=== PATIENT | female | born 1970 | race Caucasian/White ===

== ENCOUNTER 2017-02-06 18:34 | Inpatient (IN) | payer MEDICARE, OTHER ==
[~2017-02-06] VITALS: Ht 162.6 cm; Wt 65.8 kg
--- NOTE | 2017-02-06 19:03 | PHYS DOC ---
Past History Past Medical History: Bipolar, Cancer (Breast), Dementia, Hypertension, Other Additional Past Medical Histor: MS, mood disorder Additional Past Surgical Histo: Bilateral mastectomy Smoking: Non-smoker Alcohol Use: None Drug Use: None Social History Narrative: Resides at [facility] in [facility] ( Independent living apt) Social History DNR Adult General Chief Complaint Chief Complaint: PSYCH EVALUATION HPI HPI Patient is a 46 year old female who presents with increased aggressive behavior. Patient is quite debilitated from advanced multiple sclerosis hence the need for the [facility] care. She's been having some increased aggressive behavior and was sent in for our psychiatric inpatient services. Her mother is a retired occupational therapist who is aggressively involved in her care. SHe has had no recent illness, no fever or sore throat. No respiratory complaints. No abdominal issues. No vomiting or diarrhea. She is incontinent of urine and stool. Review of Systems Review of Systems Constitutional: Denies fever or chills Eyes: Denies change in visual acuity, redness, or eye pain HENT: Denies nasal congestion or sore throat Respiratory: Denies cough or shortness of breath Cardiovascular: No chest pain GI: Denies abdominal pain, nausea, vomiting, bloody stools or diarrhea ( incontinent) : Denies dysuria or hematuria (incontinent) Musculoskeletal: Denies back pain or joint pain Integument: Denies rash or skin lesions Neurologic: No confusion or altered sensorium. She is however debilitated due to MS. Allergies Allergies Allergies Coded Allergies Type Severity Reaction Last Updated Verified codeine Allergy Unknown VOMITING 01/12/14 No prednisone Allergy Unknown 01/12/14 No trazodone Allergy Unknown 01/12/14 No Physical Exam Physical Exam Constitutional: Well developed, well nourished, no acute distress, non-toxic appearance. Wheelchair bound HENT: Normocephalic, atraumatic, bilateral external ears normal, oropharynx moist, no oral exudates, nose normal. Eyes: PERRLA, EOMI, conjunctiva normal, no discharge. Neck: Normal range of motion, no tenderness, supple, no stridor. Cardiovascular:Heart rate regular rhythm, no murmur Lungs & Thorax: Bilateral breath sounds clear to auscultation Abdomen: Bowel sounds normal, soft, no tenderness, no masses, no pulsatile masses. Skin: Warm, dry, no erythema, no rash. Back: No tenderness, no CVA tenderness. Extremities: No tenderness, no cyanosis, no clubbing, ROM intact, no edema. Neurologic: Alert and oriented X 3, diffuse weakness due to MS EKG EKG EKG interpreted by myself at 1918 PM. Normal sinus rhythm, rate of 96. No acute ST elevation. Nonspecific ST changes. Course & Med Decision Making Course & Med Decision Making Evaluated patient. reviewed records from [place]. Dragon Disclaimer Dragon Disclaimer This chart was dictated in whole or in part using Voice Recognition software in a busy, high-work load, and often noisy Emergency Department environment. It may contain unintended and wholly unrecognized errors or omissions. Departure Departure: Impression: Primary Impression: Behavioral disorder Additional Impression: Multiple sclerosis Disposition: ADMITTED INPATIENT Condition: STABLE Referrals: KERRY MAYORGA MD (PCP) Problem Qualifiers BENOIT CASANOVA MD Feb 06, 2017 19:03
[2017-02-06 19:39] LABS: BASO % 1 % (0-3); EOS # 0.2 x10^3/uL (0.0-0.7); EOS % 5 % (0-3); HEMATOCRIT 36.9 % (36.0-47.0); HEMOGLOBIN 12.3 g/dL (12.0-15.5); LYMPH # 0.4 x10^3/uL (1.0-4.8); LYMPH % 10 % (24-48); MEAN CORPUSCULAR HEMOGLOBIN 32 pg (25-35); MEAN CORPUSCULAR HGB CONC 33 g/dL (31-37); MEAN CORPUSCULAR VOLUME 96 fL (79-100); MONO # 0.4 x10^3/uL (0.0-1.1); MONO % 10 % (0-9); NEUT # 2.9 x10^3uL (1.8-7.7); NEUT % 74 % (31-73); PLATELET COUNT 154 x10^3/uL (140-400); RED BLOOD COUNT 3.84 x10^6/uL (3.50-5.40); RED CELL DISTRIBUTION WIDTH 14.5 % (11.5-14.5); WHITE BLOOD COUNT 3.9 x10^3/uL (4.0-11.0)
[2017-02-06 19:48] LABS: ALBUMIN/GLOBULIN RATIO 1.3 (1.0-1.7); CREATININE 1.4 mg/dL (0.6-1.0); GFR 40.3; MAGNESIUM 2.6 mg/dL (1.8-2.4); POTASSIUM 3.5 mmol/L (3.5-5.1); TOTAL BILIRUBIN 0.5 mg/dL (0.2-1.0); TOTAL PROTEIN 7.2 g/dL (6.4-8.2)
[2017-02-06 20:01] LABS: BILIRUBIN,URINE NEG (NEG); CLARITY,URINE HAZY; COLOR,URINE YELLOW; GLUCOSE,URINE NEG (NEG)
[2017-02-06 20:02] LABS: NITRITE,URINE NEG (NEG); UROBILINOGEN,URINE 0.2 mg/dL (0.2 mg/dL)
[2017-02-06 20:03] LABS: BACTERIA,URINE MOD /HPF (0-FEW); SQUAMOUS EPITHELIAL CELL,UR FEW /LPF
[2017-02-06 20:04] LABS: AMORPHOUS SEDIMENT,UR PRESENT /HPF
[2017-02-06 21:15] VITALS: BP 137/82
[2017-02-06] MEDS ORDERED: NAPR1TAB25 PO (22:03)
[2017-02-06] MEDS ORDERED: BISA10SU2 RC (22:03)
[2017-02-06] MEDS ORDERED: MAGN500T PO (22:03)
[2017-02-06] MEDS ORDERED: FURO-68 PO (22:03)
[2017-02-06] MEDS ORDERED: OLAN5TAB5 PO (22:03)
[2017-02-06] MEDS ORDERED: LOPE2TAB27 PO (22:03)
[2017-02-06] MEDS ORDERED: SODI51CR6 DT (22:03)
[2017-02-06] MEDS ORDERED: TIZA4TAB PO (22:03)
[2017-02-06] MEDS ORDERED: TRAZ50TA15 PO ×2 (22:03)
[2017-02-06] MEDS ORDERED: TRAM50TA PO (22:03)
[2017-02-06] MEDS ORDERED: FESO4TAB PO (22:03)
[2017-02-06] MEDS ORDERED: OLAN5TAB3 PO (22:03)
[2017-02-06] MEDS ORDERED: CHOL10003 PO (22:03)
[2017-02-06] MEDS ORDERED: EUCA50OI2 TP (22:03)
[2017-02-06] MEDS ORDERED: SENN-6 PO (22:03)
[2017-02-06] MEDS ORDERED: LISI-338 PO (22:03)
[2017-02-06] MEDS ORDERED: ARIP5TAB13 PO (22:03)
[2017-02-06] MEDS ORDERED: LAMO25TA PO (22:03)
[2017-02-06] MEDS ORDERED: CRAN1CAP4 PO (22:03)
[2017-02-06] MEDS ORDERED: FERR-26 PO (22:03)
[2017-02-06] MEDS ORDERED: ESCITALOPRAM OX10 MG PO (22:03)
[2017-02-06] MEDS ORDERED: LEVO50TA5 PO (22:03)
[2017-02-06] MEDS ORDERED: BACL20TA PO (22:03)
[2017-02-06] MEDS ORDERED: POLY119P4 PO (22:03)
[2017-02-06] MEDS ORDERED: MENT118G TP (22:03)
[2017-02-06] MEDS ORDERED: MUPI15CR TP (22:03)
[2017-02-06] MEDS ORDERED: CALC1TAB63 PO (22:03)
[2017-02-06] MEDS ORDERED: ACET325T9 PO (22:03)
[2017-02-06] MEDS ORDERED: CETI10TA16 PO (22:03)
[2017-02-06] MEDS ORDERED: LORA0.5T PO (22:03)
[2017-02-06] MEDS ORDERED: POTA20TA4 PO (22:03)
[2017-02-06] MEDS ORDERED: FING0.5C3 PO (22:03)
[2017-02-06] MEDS ORDERED: HYDR-2758 PO (22:03)
[2017-02-06] MEDS ORDERED: traZODone 50 MG TABLET. PO PRN (22:15)
[2017-02-06] MEDS ORDERED: BISACODYL 10 MG SUPP.RECT RC PRN (22:15)
[2017-02-06] MEDS ORDERED: ACETAMINOPHEN 325 MG TABLET PO PRN (22:15)
[2017-02-06] MEDS ORDERED: HYDROcodone/APAP 5/325MG 1 TAB TABLET PO PRN (22:15)
[2017-02-06] MEDS ORDERED: NON FORMULARY ITEM (Menthol (Biofreeze) 1 APP) TP PRN (22:15)
[2017-02-06] MEDS ORDERED: traMADol 50 MG TABLET PO PRN (22:15)
[2017-02-06] MEDS ORDERED: MAGNESIUM HYDROXIDE 2,400 MG/30 ML ORAL.SUSP. PO PRN (22:15)
[2017-02-06] MEDS ORDERED: MAG HYDROX/AL HYDROX/SIMETH 30 ML ORAL.SUSP PO PRN (22:15)
[2017-02-06] MEDS ORDERED: LORazepam 0.5 MG TABLET PO PRN (22:15)
[2017-02-06] MEDS ORDERED: LOPERAMIDE 2 MG CAPSULE PO PRN (22:30)
[2017-02-06] MEDS ORDERED: traZODone 50 MG TABLET. PO SCH (23:00)
[2017-02-06] MEDS: SENNOSIDES/DOCUSATE 8.6/50MG TABLET. PO SCH (23:43)
[2017-02-06] MEDS: BACLOFEN 20 MG TABLET PO SCH (23:43)
[2017-02-06] MEDS: diphenhydrAMINE HCL 25 MG CAPSULE PO SCH (23:44)
[2017-02-06] MEDS: tiZANidine 4 MG TABLET. PO SCH (23:44)
[2017-02-06] MEDS: NAPROXEN 250 MG TABLET PO SCH (23:44)
[2017-02-06] MEDS: lamoTRIgine 25 MG TABLET. PO SCH (23:44)
[2017-02-07] MEDS: ACYCLOVIR 200 MG CAPSULE PO SCH ×5 (08:30→19:08)
[2017-02-07] MEDS: CITALOPRAM 20 MG TABLET. PO SCH (08:30)
[2017-02-07] MEDS: lamoTRIgine 25 MG TABLET. PO SCH ×2 (08:30→19:07)
[2017-02-07] MEDS: SENNOSIDES/DOCUSATE 8.6/50MG TABLET. PO SCH ×2 (08:30→19:07)
[2017-02-07] MEDS: BACLOFEN 20 MG TABLET PO SCH ×4 (08:30→19:07)
[2017-02-07] MEDS: MAGNESIUM OXIDE 400 MG TABLET PO SCH (08:30)
[2017-02-07] MEDS: tiZANidine 4 MG TABLET. PO SCH ×4 (08:30→19:07)
[2017-02-07] MEDS: ARIPiprazole 5 MG TABLET PO SCH (08:31)
[2017-02-07] MEDS: POTASSIUM CHLORIDE 20 MEQ TABLET.ER. PO SCH (08:31)
[2017-02-07] MEDS: FERROUS SULFATE 325 MG TABLET PO SCH ×2 (08:31→17:18)
[2017-02-07] MEDS: CALCIUM CARB/VIT D3 500/200 TABLET PO SCH ×2 (08:31→17:18)
[2017-02-07] MEDS: FUROSEMIDE 40 MG TABLET PO SCH (08:32)
[2017-02-07] MEDS: OLANZapine 5 MG TABLET PO SCH (08:32)
[2017-02-07] MEDS: CHOLECALCIFEROL (VITAMIN D3) 1,000 UNIT TABLET PO SCH (08:32)
[2017-02-07] MEDS: CETIRIZINE HCL 10 MG TABLET PO SCH (08:32)
[2017-02-07] MEDS: OXYBUTYNIN CHLORIDE 5 MG TABLET PO SCH ×2 (08:32→19:07)
[2017-02-07] MEDS: LEVOTHYROXINE 50 MCG TABLET PO SCH (08:32)
[2017-02-07] MEDS: POLYETHYLENE GLYCOL 3350 17 GM PACKET. PO SCH (08:33)
[2017-02-07] MEDS: LISINOPRIL 5 MG TABLET. PO SCH (08:33)
[2017-02-07] MEDS: NICOTINE 21MG PATCH. TD SCH (08:34)
[2017-02-07] MEDS: MUPIROCIN 2% TOPICAL OINTMENT 22GM TUBE. TP SCH ×2 (08:37→19:21)
[2017-02-07] MEDS ORDERED: [UNRECOGNIZED DRUG - OTHER] PO SCH (09:00)
[2017-02-07] MEDS ORDERED: CRANBERRY PO SCH (09:00)
[2017-02-07] MEDS ORDERED: ASCORBIC ACID PO SCH (09:00)
--- NOTE | 2017-02-07 10:40 | EKG ---
[facility] [address] [place] [address] Test Date: 2017-02-06 Test Time: 19:18:15 Pat Name: CELY SARABIA Department: Room: [address] [place] [address] Gender: F Auto [employer]: ZOLTAN : 1970 Requested By: KERRY MAYORGA Order Number: [id number] Reading MD: Mike Ortiz Measurements Intervals [place] Rate: 96 P: 53 NH: 174 QRS: 49 QRSD: 82 T: 51 QT: 346 QTc: 438 Interpretive Statements SINUS RHYTHM Electronically Signed On 02-09-2017 11:11:10 CDT by Mike Ortiz
[2017-02-07 14:20] LABS: THYROID STIM HORMONE (TSH) 2.837 uIU/mL (0.358-3.740)
[2017-02-07 15:46] VITALS: BP 120/79
[2017-02-07 18:10] LABS: T3 TOTAL 102 ng/dL (71-180); THYROXINE 10.9 ug/dL (4.5-12.0)
[2017-02-07] MEDS: NAPROXEN 250 MG TABLET PO SCH (19:07)
[2017-02-07] MEDS: diphenhydrAMINE HCL 25 MG CAPSULE PO SCH (19:21)
[2017-02-07] MEDS: traZODone 100 MG TABLET. PO SCH (19:30)
--- NOTE | 2017-02-07 19:42 | PDOC ---
Exam Mustapha Demential Exam: Mustapha Note: Please also refer to the separate dictated note~for this date of service dictated separately.~Patient seen individually. Discussed the patient with Nursing staff reviewed the chart.~Reviewed interim history and current functioning. Reviewed vital signs,~Labs/ Radiology~and current medications noted below. Continue current treatment with the changes noted in the dictated addendum note Assessment: Vital Signs: Vital Signs Date Time Temp Pulse Resp B/P (MAP) Pulse Ox O2 Delivery O2 Flow Rate FiO2 02/07/17 15:46 97.8 97 22 120/79 (93) 98 02/06/17 21:15 Room Air I&O Intake and Output 02/08/17 07:00 Intake Total 600 ml Balance 600 ml Intake Oral 600 ml # Bowel Movements 3 Current Medications: Meds: Current Medications Al Hydroxide/Mg Hydroxide (Mylanta Plus Xs) 15 ml PRN AFTMEALHC PRN PO DYSPEPSIA; Start 02/06/17 at 22:15 Magnesium Hydroxide (Milk Of Magnesia) 2,400 mg PRN QHS PRN PO CONSTIPATION; Start 02/06/17 at 22:15 Nicotine (Nicoderm Cq 21mg) 1 patch DAILY TD Last administered on 02/07/17 08: 34; Start 02/07/17 at 09:00 Aripiprazole (Abilify) 2.5 mg DAILY PO Last administered on 02/07/17 08:31; Start 02/07/17 at 09:00 Lamotrigine (LaMICtal) 25 mg BID PO Last administered on 02/07/17 19:07; Start 02/06/17 at 23:00 Lorazepam (Ativan) 0.5 mg PRN Q2HR PRN PO ANXIETY / AGITATION; Start 02/06/17 at 22:15 Olanzapine (ZyPREXA ZYDIS) 2.5 mg PRN Q2HR PRN PO ANXIETY / AGITATION; Start at 22:15 Olanzapine (ZyPREXA) 5 mg DAILY PO Last administered on 02/07/17 08:32; Start 02/07/17 at 09:00 Trazodone HCl (Desyrel) 50 mg PRN QHS PRN PO INSOMNIA; Start 02/06/17 at 22:15 ; Stop 02/07/17 at 18:20; Status DC Trazodone HCl (Desyrel) 50 mg QHS PO Last administered on 02/06/17 23:43; Start 02/06/17 at 23:00; Stop 02/07/17 at 18:20; Status DC Citalopram Hydrobromide (CeleXA) 20 mg DAILY PO Last administered on 02/07/17 08:30; Start 02/07/17 at 09:00 Acetaminophen (Tylenol) 650 mg PRN Q4HRS PRN PO PAIN / TEMP; Start 02/06/17 at 22:15 Baclofen (Lioresal) 20 mg QID PO Last administered on 02/07/17 19:07; Start at 23:00 Bisacodyl (Dulcolax Supp) 10 mg PRN DAILY PRN RC CONSTIPATION; Start 02/06/17 at 22:15 Cetirizine HCl (ZyrTEC) 10 mg DAILY PO Last administered on 02/07/17 08:32; Start 02/07/17 at 09:00 Vitamin D (Vitamin D3) 2,000 unit DAILY PO Last administered on 02/07/17 08:32 ; Start 02/07/17 at 09:00 Ferrous Sulfate (Feosol) 325 mg BIDWMEALS PO Last administered on 02/07/17 17: 18; Start 02/07/17 at 08:00 Furosemide (Lasix) 40 mg DAILY PO Last administered on 02/07/17 08:32; Start 02/07/17 at 09:00 Acetaminophen/ Hydrocodone Bitart (Lortab 5/325) 1 tab PRN Q6HRS PRN PO Severe Pain; Start 02/06/17 at 22:15 Levothyroxine Sodium (Synthroid) 50 mcg DAILY07 PO Last administered on 08:32; Start 02/07/17 at 07:00 Lisinopril (Prinivil) 5 mg DAILY PO Last administered on 02/07/17 08:33; Start 02/07/17 at 09:00 Polyethylene Glycol (miraLAX) 17 gm DAILY PO Last administered on 02/07/17 08: 33; Start 02/07/17 at 09:00 Potassium Chloride (Klor-Con) 20 meq DAILY PO Last administered on 02/07/17 08 :31; Start 02/07/17 at 09:00 Senna/Docusate Sodium (Senna Plus) 1 tab BID PO Last administered on 02/07/17 19:07; Start 02/06/17 at 23:00 Sodium Fluoride (Sf 5000 Plus) 1 jaquan QHS DT ; Start 02/07/17 at 21:00 Tizanidine HCl (Zanaflex) 4 mg QID PO Last administered on 02/07/17 19:07; Start 02/06/17 at 23:00 Tramadol HCl (Ultram) 50 mg PRN Q6HRS PRN PO PAIN; Start 02/06/17 at 22:15 Acyclovir (Zovirax) 800 mg 5XDAY PO Last administered on 02/07/17 19:08; Start 02/07/17 at 06:00; Stop 02/09/17 at 22:01 Calcium/Vitamin D (Oscal D 500mg/ 200uts) 1 tab BIDWMEALS PO Last administered on 02/07/17 17:18; Start 02/07/17 at 08:00 Non-Formulary Medication 1 cap DAILY PO ; Start 02/07/17 at 09:00; Status UNV Non-Formulary Medication 1 jaquan QHS TP ; Start 02/07/17 at 21:00; Status UNV Oxybutynin Chloride (Ditropan) 5 mg BID PO Last administered on 02/07/17 19:07 ; Start 02/07/17 at 09:00 Non-Formulary Medication 0.5 mg QODAY PO ; Start 02/08/17 at 09:00 Loperamide HCl (Imodium) 2 mg PRN QID PRN PO DIARRHEA; Start 02/06/17 at 22:30 Magnesium Oxide (Magnesium Oxide) 400 mg DAILY PO Last administered on 08:30; Start 02/07/17 at 09:00 Non-Formulary Medication 1 jaquan PRN QID PRN TP MUSCLE PAIN; Start 02/06/17 at 22 :15; Status UNV Mupirocin (Bactroban) 1 jaquan BID TP Last administered on 02/07/17 19:21; Start 02/07/17 at 09:00 Naproxen (Naprosyn) 250 mg HS PO Last administered on 02/07/17 19:07; Start at 23:00 Diphenhydramine HCl (Benadryl) 25 mg HS PO Last administered on 02/07/17t 19:21 ; Start 02/06/17 at 23:00 Cyanocobalamin (Vitamin B-12) 1,000 mcg WEEKLY IM ; Start 02/08/17 at 09:00 Trazodone HCl (Desyrel) 100 mg QHS PO Last administered on 02/07/17t 19:30; Start 02/07/17 at 21:00 Trazodone HCl (Desyrel) 100 mg PRN QHS PRN PO INSOMNIA; Start 02/07/17 at 18:30 Active Scripts Active Reported Vitamin D3 (Cholecalciferol (Vitamin D3)) 1,000 Unit Tablet 2,000 Unit PO DAILY Vicks Vaporub Ointment (Eucalyptus Oil/Menthol/Camphor) 50 Gm Oint...g. 1 Jaquan TP QHS Trazodone Hcl 50 Mg Tablet 50 Mg PO PRN QHS PRN Trazodone Hcl 50 Mg Tablet 50 Mg PO QHS Toviaz (Fesoterodine Fumarate) 4 Mg Tab.er.24h 4 Mg PO DAILY Tizanidine Hcl (Tizanidine HCl) 4 Mg Tablet 4 Mg PO QID Senna S Tablet (Sennosides/Docusate Sodium) 1 Each Tablet 1 Tab PO BID Klor-Con M20 (Potassium Chloride) 20 Meq Tab.er.prt 20 Meq PO DAILY Zyprexa (Olanzapine) 5 Mg Tablet 5 Mg PO DAILY Zyprexa Zydis (Olanzapine) 5 Mg Tab.rapdis 2.5 Mg PO PRN Q2HR PRN MDD 15mg Miralax (Polyethylene Glycol 3350) 119 Gm Powder 17 Gm PO DAILY Magnesium Oxide 500 Mg Tablet 500 Mg PO DAILY Lorazepam 0.5 Mg Tablet 0.5 Mg PO PRN Q2HR PRN MDD 2mg Loperamide (Loperamide Hcl) 2 Mg Tablet 2 Mg PO PRN QID PRN Lisinopril 5 Mg Tablet 5 Mg PO DAILY Levothyroxine Sodium 50 Mcg Tablet 50 Mcg PO DAILY07 Lasix (Furosemide) 40 Mg Tablet 40 Mg PO DAILY Lamotrigine 25 Mg Tablet 25 Mg PO BID Gilenya (Fingolimod Hcl) 0.5 Mg Capsule 0.5 Mg PO QODAY Ferrous Sulfate 325 Mg Tablet 325 Mg PO BID Escitalopram Oxalate 10 Mg Tablet 10 Mg PO DAILY Bisacodyl 10 Mg Supp.rect 10 Mg RC PRN DAILY PRN Cetirizine Hcl 10 Mg Tablet 10 Mg PO DAILY Calcium 600 + Vit D3 400 Tab (Calcium Carbonate/Vitamin D3) 1 Each Tablet 1 Tab PO BID Biofreeze (Menthol) 118 Ml Gel..ml. 1 Jaquan TP PRN QID PRN Bactroban (Mupirocin Calcium) 15 Gm Cream..g. 1 Gm TP BID Baclofen 20 Mg Tablet 20 Mg PO QID Abilify (Aripiprazole) 5 Mg Tablet 2.5 Mg PO DAILY Aleve Pm Caplet (Naproxen Na-Diphenhydramin HCl) 1 Each Tablet 1 Tab PO QHS Acyclovir 800 Mg Tablet 800 Mg PO 5XDAY 7 Days Tylenol (Acetaminophen) 325 Mg Tablet 650 Mg PO PRN Q4HRS PRN MDD 3000mg Tramadol Hcl (Tramadol HCl) 50 Mg Tablet 50 Mg PO PRN Q6HRS PRN Hydrocodone-Apap 5-325 (Hydrocodone Bit/Acetaminophen) 1 Each Tablet 1 Tab PO PRN Q6HRS PRN Denta 5000 Plus (Sodium Fluoride) 51 Gm Cream..g. 1 Jaquan DT QHS Cranberry Plus Vitamin C Sftgl (Cranberry Conc/Ascorbic Acid) 1 Each Capsule 1 Cap PO DAILY Diagnosis: Problems: (1) Behavioral disorder KERRY MAYORGA MD Feb 07, 2017 19:42
[2017-02-07] MEDS: SODIUM FLUORIDE DT SCH (21:00)
[2017-02-07] MEDS ORDERED: CAMPHOR TP SCH (21:00)
[2017-02-07] MEDS ORDERED: MENTHOL TP SCH (21:00)
[2017-02-07] MEDS ORDERED: EUCALYPTUS OIL TP SCH (21:00)
[2017-02-07] MEDS: [UNRECOGNIZED DRUG - OTHER] DT SCH (21:00)
[2017-02-07] MEDS: traZODone 100 MG TABLET. PO PRN (23:29)
[2017-02-08 03:13] LABS: HEMOGLOBIN A1C 4.7 % (4.8-5.6)
[2017-02-08] MEDS: LEVOTHYROXINE 50 MCG TABLET PO SCH (05:26)
[2017-02-08] MEDS: ACYCLOVIR 200 MG CAPSULE PO SCH ×5 (05:26→19:23)
[2017-02-08 05:49] VITALS: BP 117/76
[2017-02-08] MEDS: ARIPiprazole 5 MG TABLET PO SCH (08:06)
[2017-02-08] MEDS: SENNOSIDES/DOCUSATE 8.6/50MG TABLET. PO SCH ×2 (08:07→19:21)
[2017-02-08] MEDS: CALCIUM CARB/VIT D3 500/200 TABLET PO SCH ×2 (08:07→17:30)
[2017-02-08] MEDS: lamoTRIgine 25 MG TABLET. PO SCH ×2 (08:07→19:21)
[2017-02-08] MEDS: POTASSIUM CHLORIDE 20 MEQ TABLET.ER. PO SCH (08:07)
[2017-02-08] MEDS: CITALOPRAM 20 MG TABLET. PO SCH (08:07)
[2017-02-08] MEDS: LISINOPRIL 5 MG TABLET. PO SCH (08:07)
[2017-02-08] MEDS: BACLOFEN 20 MG TABLET PO SCH ×4 (08:07→19:20)
[2017-02-08] MEDS: MAGNESIUM OXIDE 400 MG TABLET PO SCH (08:07)
[2017-02-08] MEDS: FERROUS SULFATE 325 MG TABLET PO SCH ×2 (08:08→17:30)
[2017-02-08] MEDS: CHOLECALCIFEROL (VITAMIN D3) 1,000 UNIT TABLET PO SCH (08:08)
[2017-02-08] MEDS: NICOTINE 21MG PATCH. TD SCH (08:08)
[2017-02-08] MEDS: FUROSEMIDE 40 MG TABLET PO SCH (08:08)
[2017-02-08] MEDS: POLYETHYLENE GLYCOL 3350 17 GM PACKET. PO SCH (08:08)
[2017-02-08] MEDS: OXYBUTYNIN CHLORIDE 5 MG TABLET PO SCH ×2 (08:08→19:21)
[2017-02-08] MEDS: OLANZapine 5 MG TABLET PO SCH (08:08)
[2017-02-08] MEDS: tiZANidine 4 MG TABLET. PO SCH ×4 (08:08→19:20)
[2017-02-08] MEDS: CETIRIZINE HCL 10 MG TABLET PO SCH (08:08)
[2017-02-08] MEDS: CYANOCOBALAMIN (VITAMIN B-12) 1,000 MCG/ML VIAL IM SCH (08:15)
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
[2017-02-08] MEDS: MUPIROCIN 2% TOPICAL OINTMENT 22GM TUBE. TP SCH (09:47)
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
--- NOTE | 2017-02-08 14:26 | RAD ---
CT scan of the head without contrast 02/08/2017 Clinical History: Confusion and agitation. Technique: Unenhanced, contiguous, 5 mm axial sections were obtained through the head. One or more of the following individualized dose reduction techniques were utilized for this study: 1. Automated exposure control. 2. Adjustment of the mA and/or kV according to patient size. 3. Use of iterative reconstruction technique. Findings: No previous studies are available for comparison. There is generalized parenchymal atrophy. Small scattered areas of decreased attenuation are seen within the periventricular and subcortical white matter of both cerebral hemispheres consistent with areas of small vessel ischemic disease. No acute parenchymal abnormality is seen. No extra-axial fluid collection is noted. No skull fracture is seen. Impression: No acute intracranial abnormality is seen.
[2017-02-08 16:10] VITALS: BP 92/59
[2017-02-08] MEDS: traZODone 100 MG TABLET. PO SCH (19:20)
[2017-02-08] MEDS: diphenhydrAMINE HCL 25 MG CAPSULE PO SCH (19:21)
[2017-02-08] MEDS: NAPROXEN 250 MG TABLET PO SCH (19:21)
[2017-02-08] MEDS: SODIUM FLUORIDE DT SCH (19:23)
[2017-02-08] MEDS: [UNRECOGNIZED DRUG - OTHER] DT SCH (19:23)
--- NOTE | 2017-02-08 19:49 | PDOC ---
Exam Mustapha Demential Exam: Mustapha Note: Please also refer to the separate dictated note~for this date of service dictated separately.~Patient seen individually. Discussed the patient with Nursing staff reviewed the chart.~Reviewed interim history and current functioning. Reviewed vital signs,~Labs/ Radiology~and current medications noted below. Continue current treatment with the changes noted in the dictated addendum note Assessment: Vital Signs: Vital Signs Date Time Temp Pulse Resp B/P (MAP) Pulse Ox O2 Delivery O2 Flow Rate FiO2 02/08/17 16:10 97.0 86 16 92/59 (70) 98 02/06/17 21:15 Room Air I&O Intake and Output 02/09/17 07:00 Intake Total 720 ml Balance 720 ml Intake Oral 720 ml Current Medications: Meds: Current Medications Al Hydroxide/Mg Hydroxide (Mylanta Plus Xs) 15 ml PRN AFTMEALHC PRN PO DYSPEPSIA; Start 02/06/17 at 22:15 Magnesium Hydroxide (Milk Of Magnesia) 2,400 mg PRN QHS PRN PO CONSTIPATION; Start 02/06/17 at 22:15 Nicotine (Nicoderm Cq 21mg) 1 patch DAILY TD Last administered on 02/08/17 08: 08; Start 02/07/17 at 09:00 Aripiprazole (Abilify) 2.5 mg DAILY PO Last administered on 02/08/17 08:06; Start 02/07/17 at 09:00; Stop 02/08/17 at 18:25; Status DC Lamotrigine (LaMICtal) 25 mg BID PO Last administered on 02/08/17 19:21; Start 02/06/17 at 23:00 Lorazepam (Ativan) 0.5 mg PRN Q2HR PRN PO ANXIETY / AGITATION; Start 02/06/17 at 22:15 Olanzapine (ZyPREXA ZYDIS) 2.5 mg PRN Q2HR PRN PO ANXIETY / AGITATION; Start at 22:15 Olanzapine (ZyPREXA) 5 mg DAILY PO Last administered on 02/08/17 08:08; Start 02/07/17 at 09:00 Trazodone HCl (Desyrel) 50 mg PRN QHS PRN PO INSOMNIA; Start 02/06/17 at 22:15 ; Stop 02/07/17 at 18:20; Status DC Trazodone HCl (Desyrel) 50 mg QHS PO Last administered on 02/06/17 23:43; Start 02/06/17 at 23:00; Stop 02/07/17 at 18:20; Status DC Citalopram Hydrobromide (CeleXA) 20 mg DAILY PO Last administered on 02/08/17 08:07; Start 02/07/17 at 09:00 Acetaminophen (Tylenol) 650 mg PRN Q4HRS PRN PO PAIN / TEMP; Start 02/06/17 at 22:15 Baclofen (Lioresal) 20 mg QID PO Last administered on 02/08/17 19:20; Start at 23:00 Bisacodyl (Dulcolax Supp) 10 mg PRN DAILY PRN RC CONSTIPATION; Start 02/06/17 at 22:15 Cetirizine HCl (ZyrTEC) 10 mg DAILY PO Last administered on 02/08/17 08:08; Start 02/07/17 at 09:00 Vitamin D (Vitamin D3) 2,000 unit DAILY PO Last administered on 02/08/17 08:08 ; Start 02/07/17 at 09:00 Ferrous Sulfate (Feosol) 325 mg BIDWMEALS PO Last administered on 02/08/17 17: 30; Start 02/07/17 at 08:00 Furosemide (Lasix) 40 mg DAILY PO Last administered on 02/08/17 08:08; Start 02/07/17 at 09:00 Acetaminophen/ Hydrocodone Bitart (Lortab 5/325) 1 tab PRN Q6HRS PRN PO Severe Pain; Start 02/06/17 at 22:15 Levothyroxine Sodium (Synthroid) 50 mcg DAILY07 PO Last administered on 05:26; Start 02/07/17 at 07:00 Lisinopril (Prinivil) 5 mg DAILY PO Last administered on 02/08/17 08:07; Start 02/07/17 at 09:00 Polyethylene Glycol (miraLAX) 17 gm DAILY PO Last administered on 02/08/17 08: 08; Start 02/07/17 at 09:00 Potassium Chloride (Klor-Con) 20 meq DAILY PO Last administered on 02/08/17 08 :07; Start 02/07/17 at 09:00 Senna/Docusate Sodium (Senna Plus) 1 tab BID PO Last administered on 02/08/17 19:21; Start 02/06/17 at 23:00 Sodium Fluoride (Sf 5000 Plus) 1 jaquan QHS DT Last administered on 02/08/17 19: 23; Start 02/07/17 at 21:00 Tizanidine HCl (Zanaflex) 4 mg QID PO Last administered on 02/08/17 19:20; Start 02/06/17 at 23:00 Tramadol HCl (Ultram) 50 mg PRN Q6HRS PRN PO PAIN; Start 02/06/17 at 22:15 Acyclovir (Zovirax) 800 mg 5XDAY PO Last administered on 02/08/17 19:23; Start 02/07/17 at 06:00; Stop 02/09/17 at 22:01 Calcium/Vitamin D (Oscal D 500mg/ 200uts) 1 tab BIDWMEALS PO Last administered on 02/08/17 17:30; Start 02/07/17 at 08:00 Non-Formulary Medication 1 cap DAILY PO ; Start 02/07/17 at 09:00; Status UNV Non-Formulary Medication 1 jaquan QHS TP ; Start 02/07/17 at 21:00; Status UNV Oxybutynin Chloride (Ditropan) 5 mg BID PO Last administered on 02/08/17 19:21 ; Start 02/07/17 at 09:00 Non-Formulary Medication 0.5 mg QODAY PO Last administered on 02/08/17 08:22; Start 02/08/17 at 09:00 Loperamide HCl (Imodium) 2 mg PRN QID PRN PO DIARRHEA; Start 02/06/17 at 22:30 Magnesium Oxide (Magnesium Oxide) 400 mg DAILY PO Last administered on 08:07; Start 02/07/17 at 09:00 Non-Formulary Medication 1 jaquan PRN QID PRN TP MUSCLE PAIN; Start 02/06/17 at 22 :15; Status UNV Mupirocin (Bactroban) 1 jaquan BID TP Last administered on 02/08/17 09:47; Start 02/07/17 at 09:00; Stop 02/08/17 at 15:33; Status DC Naproxen (Naprosyn) 250 mg HS PO Last administered on 02/08/17 19:21; Start at 23:00 Diphenhydramine HCl (Benadryl) 25 mg HS PO Last administered on 02/08/17 19:21 ; Start 02/06/17 at 23:00 Cyanocobalamin (Vitamin B-12) 1,000 mcg WEEKLY IM Last administered on 08:15; Start 02/08/17 at 09:00 Trazodone HCl (Desyrel) 100 mg QHS PO Last administered on 02/08/17 19:20; Start 02/07/17 at 21:00 Trazodone HCl (Desyrel) 100 mg PRN QHS PRN PO INSOMNIA Last administered on 23:29; Start 02/07/17 at 18:30 Oxcarbazepine (Trileptal) 300 mg TID PO Last administered on 02/08/17 19:31; Start 02/08/17 at 21:00 Active Scripts Active Reported Vitamin D3 (Cholecalciferol (Vitamin D3)) 1,000 Unit Tablet 2,000 Unit PO DAILY Vicks Vaporub Ointment (Eucalyptus Oil/Menthol/Camphor) 50 Gm Oint...g. 1 Jaquan TP QHS Trazodone Hcl 50 Mg Tablet 50 Mg PO PRN QHS PRN Trazodone Hcl 50 Mg Tablet 50 Mg PO QHS Toviaz (Fesoterodine Fumarate) 4 Mg Tab.er.24h 4 Mg PO DAILY Tizanidine Hcl (Tizanidine HCl) 4 Mg Tablet 4 Mg PO QID Senna S Tablet (Sennosides/Docusate Sodium) 1 Each Tablet 1 Tab PO BID Klor-Con M20 (Potassium Chloride) 20 Meq Tab.er.prt 20 Meq PO DAILY Zyprexa (Olanzapine) 5 Mg Tablet 5 Mg PO DAILY Zyprexa Zydis (Olanzapine) 5 Mg Tab.rapdis 2.5 Mg PO PRN Q2HR PRN MDD 15mg Miralax (Polyethylene Glycol 3350) 119 Gm Powder 17 Gm PO DAILY Magnesium Oxide 500 Mg Tablet 500 Mg PO DAILY Lorazepam 0.5 Mg Tablet 0.5 Mg PO PRN Q2HR PRN MDD 2mg Loperamide (Loperamide Hcl) 2 Mg Tablet 2 Mg PO PRN QID PRN Lisinopril 5 Mg Tablet 5 Mg PO DAILY Levothyroxine Sodium 50 Mcg Tablet 50 Mcg PO DAILY07 Lasix (Furosemide) 40 Mg Tablet 40 Mg PO DAILY Lamotrigine 25 Mg Tablet 25 Mg PO BID Gilenya (Fingolimod Hcl) 0.5 Mg Capsule 0.5 Mg PO QODAY Ferrous Sulfate 325 Mg Tablet 325 Mg PO BID Escitalopram Oxalate 10 Mg Tablet 10 Mg PO DAILY Bisacodyl 10 Mg Supp.rect 10 Mg RC PRN DAILY PRN Cetirizine Hcl 10 Mg Tablet 10 Mg PO DAILY Calcium 600 + Vit D3 400 Tab (Calcium Carbonate/Vitamin D3) 1 Each Tablet 1 Tab PO BID Biofreeze (Menthol) 118 Ml Gel..ml. 1 Jaquan TP PRN QID PRN Bactroban (Mupirocin Calcium) 15 Gm Cream..g. 1 Gm TP BID Baclofen 20 Mg Tablet 20 Mg PO QID Abilify (Aripiprazole) 5 Mg Tablet 2.5 Mg PO DAILY Aleve Pm Caplet (Naproxen Na-Diphenhydramin HCl) 1 Each Tablet 1 Tab PO QHS Acyclovir 800 Mg Tablet 800 Mg PO 5XDAY 7 Days Tylenol (Acetaminophen) 325 Mg Tablet 650 Mg PO PRN Q4HRS PRN MDD 3000mg Tramadol Hcl (Tramadol HCl) 50 Mg Tablet 50 Mg PO PRN Q6HRS PRN Hydrocodone-Apap 5-325 (Hydrocodone Bit/Acetaminophen) 1 Each Tablet 1 Tab PO PRN Q6HRS PRN Denta 5000 Plus (Sodium Fluoride) 51 Gm Cream..g. 1 Jaquan DT QHS Cranberry Plus Vitamin C Sftgl (Cranberry Conc/Ascorbic Acid) 1 Each Capsule 1 Cap PO DAILY Diagnosis: Problems: (1) Behavioral disorder (2) Bipolar 1 disorder, mixed, moderate (3) Anxiety disorder (4) Impulse control disorder KERRY MAYORGA MD Feb 08, 2017 19:49
[2017-02-09] MEDS: traZODone 100 MG TABLET. PO PRN (01:03)
[2017-02-09 06:00] VITALS: BP 104/65
[2017-02-09] MEDS: ACYCLOVIR 200 MG CAPSULE PO SCH ×5 (06:13→19:50)
[2017-02-09] MEDS: LEVOTHYROXINE 50 MCG TABLET PO SCH (06:14)
[2017-02-09] MEDS: POLYETHYLENE GLYCOL 3350 17 GM PACKET. PO SCH (08:01)
[2017-02-09] MEDS: FUROSEMIDE 40 MG TABLET PO SCH (08:02)
[2017-02-09] MEDS: OLANZapine 5 MG TABLET PO SCH (08:02)
[2017-02-09] MEDS: CHOLECALCIFEROL (VITAMIN D3) 1,000 UNIT TABLET PO SCH (08:02)
[2017-02-09] MEDS: lamoTRIgine 25 MG TABLET. PO SCH ×2 (08:02→19:40)
[2017-02-09] MEDS: CITALOPRAM 20 MG TABLET. PO SCH (08:02)
[2017-02-09] MEDS: POTASSIUM CHLORIDE 20 MEQ TABLET.ER. PO SCH (08:02)
[2017-02-09] MEDS: SENNOSIDES/DOCUSATE 8.6/50MG TABLET. PO SCH ×2 (08:02→19:40)
[2017-02-09] MEDS: OXYBUTYNIN CHLORIDE 5 MG TABLET PO SCH ×2 (08:02→19:38)
[2017-02-09] MEDS: BACLOFEN 20 MG TABLET PO SCH ×4 (08:02→19:40)
[2017-02-09] MEDS: tiZANidine 4 MG TABLET. PO SCH ×4 (08:02→19:40)
[2017-02-09] MEDS: CALCIUM CARB/VIT D3 500/200 TABLET PO SCH ×2 (08:02→17:01)
[2017-02-09] MEDS: FERROUS SULFATE 325 MG TABLET PO SCH ×2 (08:03→17:00)
[2017-02-09] MEDS: CETIRIZINE HCL 10 MG TABLET PO SCH (08:03)
[2017-02-09] MEDS: NICOTINE 21MG PATCH. TD SCH (08:03)
[2017-02-09] MEDS: LISINOPRIL 5 MG TABLET. PO SCH (08:03)
[2017-02-09] MEDS: MAGNESIUM OXIDE 400 MG TABLET PO SCH (08:03)
[2017-02-09 16:10] VITALS: BP 98/59
[2017-02-09] MEDS: traZODone 100 MG TABLET. PO SCH (19:38)
[2017-02-09] MEDS: diphenhydrAMINE HCL 25 MG CAPSULE PO SCH (19:39)
[2017-02-09] MEDS: NAPROXEN 250 MG TABLET PO SCH (19:39)
--- NOTE | 2017-02-09 19:47 | PDOC ---
Exam Mustapha Demential Exam: Mustapha Note: Please also refer to the separate dictated note~for this date of service dictated separately.~Patient seen individually. Discussed the patient with Nursing staff reviewed the chart.~Reviewed interim history and current functioning. Reviewed vital signs,~Labs/ Radiology~and current medications noted below. Continue current treatment with the changes noted in the dictated addendum note Assessment: Vital Signs: Vital Signs Date Time Temp Pulse Resp B/P (MAP) Pulse Ox O2 Delivery O2 Flow Rate FiO2 02/09/17 16:10 97.4 94 18 98/59 (72) 98 02/06/17 21:15 Room Air I&O Intake and Output 02/10/17 06:59 Intake Total 360 ml Balance 360 ml Intake Oral 360 ml Current Medications: Meds: Current Medications Al Hydroxide/Mg Hydroxide (Mylanta Plus Xs) 15 ml PRN AFTMEALHC PRN PO DYSPEPSIA; Start 02/06/17 at 22:15 Magnesium Hydroxide (Milk Of Magnesia) 2,400 mg PRN QHS PRN PO CONSTIPATION; Start 02/06/17 at 22:15 Nicotine (Nicoderm Cq 21mg) 1 patch DAILY TD Last administered on 02/09/17 08: 03; Start 02/07/17 at 09:00 Aripiprazole (Abilify) 2.5 mg DAILY PO Last administered on 02/08/17 08:06; Start 02/07/17 at 09:00; Stop 02/08/17 at 18:25; Status DC Lamotrigine (LaMICtal) 25 mg BID PO Last administered on 02/09/17 19:40; Start 02/06/17 at 23:00 Lorazepam (Ativan) 0.5 mg PRN Q2HR PRN PO ANXIETY / AGITATION Last administered on 02/09/17 02:01; Start 02/06/17 at 22:15 Olanzapine (ZyPREXA ZYDIS) 2.5 mg PRN Q2HR PRN PO ANXIETY / AGITATION; Start at 22:15 Olanzapine (ZyPREXA) 5 mg DAILY PO Last administered on 02/09/17 08:02; Start 02/07/17 at 09:00 Trazodone HCl (Desyrel) 50 mg PRN QHS PRN PO INSOMNIA; Start 02/06/17 at 22:15 ; Stop 02/07/17 at 18:20; Status DC Trazodone HCl (Desyrel) 50 mg QHS PO Last administered on 02/06/17 23:43; Start 02/06/17 at 23:00; Stop 02/07/17 at 18:20; Status DC Citalopram Hydrobromide (CeleXA) 20 mg DAILY PO Last administered on 02/09/17 08:02; Start 02/07/17 at 09:00 Acetaminophen (Tylenol) 650 mg PRN Q4HRS PRN PO PAIN / TEMP; Start 02/06/17 at 22:15 Baclofen (Lioresal) 20 mg QID PO Last administered on 02/09/17 19:40; Start at 23:00 Bisacodyl (Dulcolax Supp) 10 mg PRN DAILY PRN RC CONSTIPATION; Start 02/06/17 at 22:15 Cetirizine HCl (ZyrTEC) 10 mg DAILY PO Last administered on 02/09/17 08:03; Start 02/07/17 at 09:00 Vitamin D (Vitamin D3) 2,000 unit DAILY PO Last administered on 02/09/17 08:02 ; Start 02/07/17 at 09:00 Ferrous Sulfate (Feosol) 325 mg BIDWMEALS PO Last administered on 02/09/17 17: 00; Start 02/07/17 at 08:00 Furosemide (Lasix) 40 mg DAILY PO Last administered on 02/09/17 08:02; Start 02/07/17 at 09:00 Acetaminophen/ Hydrocodone Bitart (Lortab 5/325) 1 tab PRN Q6HRS PRN PO Severe Pain; Start 02/06/17 at 22:15 Levothyroxine Sodium (Synthroid) 50 mcg DAILY07 PO Last administered on 06:14; Start 02/07/17 at 07:00 Lisinopril (Prinivil) 5 mg DAILY PO Last administered on 02/09/17 08:03; Start 02/07/17 at 09:00 Polyethylene Glycol (miraLAX) 17 gm DAILY PO Last administered on 02/09/17 08: 01; Start 02/07/17 at 09:00 Potassium Chloride (Klor-Con) 20 meq DAILY PO Last administered on 02/09/17 08 :02; Start 02/07/17 at 09:00 Senna/Docusate Sodium (Senna Plus) 1 tab BID PO Last administered on 02/09/17 19:40; Start 02/06/17 at 23:00 Sodium Fluoride (Sf 5000 Plus) 1 jaquan QHS DT Last administered on 02/08/17 19: 23; Start 02/07/17 at 21:00 Tizanidine HCl (Zanaflex) 4 mg QID PO Last administered on 02/09/17 19:40; Start 02/06/17 at 23:00 Tramadol HCl (Ultram) 50 mg PRN Q6HRS PRN PO PAIN; Start 02/06/17 at 22:15 Acyclovir (Zovirax) 800 mg 5XDAY PO Last administered on 02/09/17 17:02; Start 02/07/17 at 06:00; Stop 02/09/17 at 22:01 Calcium/Vitamin D (Oscal D 500mg/ 200uts) 1 tab BIDWMEALS PO Last administered on 02/09/17 17:01; Start 02/07/17 at 08:00 Non-Formulary Medication 1 cap DAILY PO ; Start 02/07/17 at 09:00; Status UNV Non-Formulary Medication 1 jaquan QHS TP ; Start 02/07/17 at 21:00; Status UNV Oxybutynin Chloride (Ditropan) 5 mg BID PO Last administered on 02/09/17 19:38 ; Start 02/07/17 at 09:00 Non-Formulary Medication 0.5 mg QODAY PO Last administered on 02/08/17 08:22; Start 02/08/17 at 09:00 Loperamide HCl (Imodium) 2 mg PRN QID PRN PO DIARRHEA; Start 02/06/17 at 22:30 Magnesium Oxide (Magnesium Oxide) 400 mg DAILY PO Last administered on 08:03; Start 02/07/17 at 09:00 Non-Formulary Medication 1 jaquan PRN QID PRN TP MUSCLE PAIN; Start 02/06/17 at 22 :15; Status UNV Mupirocin (Bactroban) 1 jaquan BID TP Last administered on 02/08/17 09:47; Start 02/07/17 at 09:00; Stop 02/08/17 at 15:33; Status DC Naproxen (Naprosyn) 250 mg HS PO Last administered on 02/09/17 19:39; Start at 23:00 Diphenhydramine HCl (Benadryl) 25 mg HS PO Last administered on 02/09/17 19:39 ; Start 02/06/17 at 23:00 Cyanocobalamin (Vitamin B-12) 1,000 mcg WEEKLY IM Last administered on 08:15; Start 02/08/17 at 09:00 Trazodone HCl (Desyrel) 100 mg QHS PO Last administered on 02/09/17 19:38; Start 02/07/17 at 21:00 Trazodone HCl (Desyrel) 100 mg PRN QHS PRN PO INSOMNIA Last administered on 01:03; Start 02/07/17 at 18:30 Oxcarbazepine (Trileptal) 300 mg TID PO Last administered on 02/09/17 19:40; Start 02/08/17 at 21:00 Active Scripts Active Reported Vitamin D3 (Cholecalciferol (Vitamin D3)) 1,000 Unit Tablet 2,000 Unit PO DAILY Vicks Vaporub Ointment (Eucalyptus Oil/Menthol/Camphor) 50 Gm Oint...g. 1 Jaquan TP QHS Trazodone Hcl 50 Mg Tablet 50 Mg PO PRN QHS PRN Trazodone Hcl 50 Mg Tablet 50 Mg PO QHS Toviaz (Fesoterodine Fumarate) 4 Mg Tab.er.24h 4 Mg PO DAILY Tizanidine Hcl (Tizanidine HCl) 4 Mg Tablet 4 Mg PO QID Senna S Tablet (Sennosides/Docusate Sodium) 1 Each Tablet 1 Tab PO BID Klor-Con M20 (Potassium Chloride) 20 Meq Tab.er.prt 20 Meq PO DAILY Zyprexa (Olanzapine) 5 Mg Tablet 5 Mg PO DAILY Zyprexa Zydis (Olanzapine) 5 Mg Tab.rapdis 2.5 Mg PO PRN Q2HR PRN MDD 15mg Miralax (Polyethylene Glycol 3350) 119 Gm Powder 17 Gm PO DAILY Magnesium Oxide 500 Mg Tablet 500 Mg PO DAILY Lorazepam 0.5 Mg Tablet 0.5 Mg PO PRN Q2HR PRN MDD 2mg Loperamide (Loperamide Hcl) 2 Mg Tablet 2 Mg PO PRN QID PRN Lisinopril 5 Mg Tablet 5 Mg PO DAILY Levothyroxine Sodium 50 Mcg Tablet 50 Mcg PO DAILY07 Lasix (Furosemide) 40 Mg Tablet 40 Mg PO DAILY Lamotrigine 25 Mg Tablet 25 Mg PO BID Gilenya (Fingolimod Hcl) 0.5 Mg Capsule 0.5 Mg PO QODAY Ferrous Sulfate 325 Mg Tablet 325 Mg PO BID Escitalopram Oxalate 10 Mg Tablet 10 Mg PO DAILY Bisacodyl 10 Mg Supp.rect 10 Mg RC PRN DAILY PRN Cetirizine Hcl 10 Mg Tablet 10 Mg PO DAILY Calcium 600 + Vit D3 400 Tab (Calcium Carbonate/Vitamin D3) 1 Each Tablet 1 Tab PO BID Biofreeze (Menthol) 118 Ml Gel..ml. 1 Jaquan TP PRN QID PRN Bactroban (Mupirocin Calcium) 15 Gm Cream..g. 1 Gm TP BID Baclofen 20 Mg Tablet 20 Mg PO QID Abilify (Aripiprazole) 5 Mg Tablet 2.5 Mg PO DAILY Aleve Pm Caplet (Naproxen Na-Diphenhydramin HCl) 1 Each Tablet 1 Tab PO QHS Acyclovir 800 Mg Tablet 800 Mg PO 5XDAY 7 Days Tylenol (Acetaminophen) 325 Mg Tablet 650 Mg PO PRN Q4HRS PRN MDD 3000mg Tramadol Hcl (Tramadol HCl) 50 Mg Tablet 50 Mg PO PRN Q6HRS PRN Hydrocodone-Apap 5-325 (Hydrocodone Bit/Acetaminophen) 1 Each Tablet 1 Tab PO PRN Q6HRS PRN Denta 5000 Plus (Sodium Fluoride) 51 Gm Cream..g. 1 Jaquan DT QHS Cranberry Plus Vitamin C Sftgl (Cranberry Conc/Ascorbic Acid) 1 Each Capsule 1 Cap PO DAILY Diagnosis: Problems: (1) Behavioral disorder (2) Bipolar 1 disorder, mixed, moderate (3) Anxiety disorder (4) Impulse control disorder KERRY MAYORGA MD Feb 09, 2017 19:47
[2017-02-09] MEDS: SODIUM FLUORIDE DT SCH (21:00)
[2017-02-09] MEDS: [UNRECOGNIZED DRUG - OTHER] DT SCH (21:00)
--- NOTE | 2017-02-09 23:46 | PN ---
DATE: 02/08/2017 SUBJECTIVE: This is a late entry 02/08/2017, covers elements not covered in my initial note of 02/08/2017. I met with the patient evening of 02/08/2017. Overall, the patient remains manic, grandiose, labile, and agitated. Previous evening she was banging her hand at the bedrail talking about " " constantly moving, agitated, and labile in her mood. REVIEW OF SYSTEMS: Ambulation impaired in wheelchair. No CV, , pulmonary, or eye system symptoms on review. MENTAL STATUS EXAM: Oriented to herself and situation. Speech coherent and rapid. Abstraction fair, computation impaired, language function intact, and attention span short. Mood and affect remains manic and labile. LABORATORY DATA: Reviewed. DIAGNOSTIC DATA: CT head shows no acute changes. IMPRESSION: Unchanged from initial note. PLAN: Stop the patient's Abilify 2.5 mg a day. Start Trileptal 300 mg at bedtime for her bipolar disorder since she is allergic to Depakote. Continue Celexa 20 mg a day, Zyprexa 5 mg daily, and trazodone increased to 200 mg at bedtime, may repeat for insomnia since she slept just 4 hours the previous evening. Follow labs level. Make further adjustments as clinically indicated. MAN Destin MAYORGA MD DR: INGRIS/buzz JOB#: [id number] / [id number]
[2017-02-10 05:25] VITALS: BP 110/91
[2017-02-10] MEDS: LEVOTHYROXINE 50 MCG TABLET PO SCH (05:32)
[2017-02-10] MEDS: POLYETHYLENE GLYCOL 3350 17 GM PACKET. PO SCH (07:52)
[2017-02-10] MEDS: NICOTINE 21MG PATCH. TD SCH (07:52)
[2017-02-10] MEDS: CHOLECALCIFEROL (VITAMIN D3) 1,000 UNIT TABLET PO SCH (07:53)
[2017-02-10] MEDS: OXYBUTYNIN CHLORIDE 5 MG TABLET PO SCH ×2 (07:53→19:16)
[2017-02-10] MEDS: LISINOPRIL 5 MG TABLET. PO SCH (07:53)
[2017-02-10] MEDS: BACLOFEN 20 MG TABLET PO SCH ×4 (07:53→19:17)
[2017-02-10] MEDS: OLANZapine 5 MG TABLET PO SCH (07:53)
[2017-02-10] MEDS: CALCIUM CARB/VIT D3 500/200 TABLET PO SCH ×2 (07:54→17:12)
[2017-02-10] MEDS: MAGNESIUM OXIDE 400 MG TABLET PO SCH (07:54)
[2017-02-10] MEDS: CETIRIZINE HCL 10 MG TABLET PO SCH (07:54)
[2017-02-10] MEDS: CITALOPRAM 20 MG TABLET. PO SCH (07:54)
[2017-02-10] MEDS: POTASSIUM CHLORIDE 20 MEQ TABLET.ER. PO SCH (07:54)
[2017-02-10] MEDS: FUROSEMIDE 40 MG TABLET PO SCH (07:54)
[2017-02-10] MEDS: SENNOSIDES/DOCUSATE 8.6/50MG TABLET. PO SCH ×2 (07:54→19:17)
[2017-02-10] MEDS: tiZANidine 4 MG TABLET. PO SCH ×4 (07:54→19:17)
[2017-02-10] MEDS: FERROUS SULFATE 325 MG TABLET PO SCH ×2 (07:54→17:12)
[2017-02-10] MEDS: lamoTRIgine 25 MG TABLET. PO SCH ×2 (07:55→19:16)
[2017-02-10 15:59] VITALS: BP 101/67
[2017-02-10] MEDS: traZODone 100 MG TABLET. PO SCH (19:16)
[2017-02-10] MEDS: diphenhydrAMINE HCL 25 MG CAPSULE PO SCH (19:16)
[2017-02-10] MEDS: NAPROXEN 250 MG TABLET PO SCH (19:17)
[2017-02-10] MEDS: [UNRECOGNIZED DRUG - OTHER] DT SCH (19:32)
[2017-02-10] MEDS: SODIUM FLUORIDE DT SCH (19:32)
--- NOTE | 2017-02-10 19:39 | PDOC ---
Exam Mustapha Demential Exam: Mustapha Note: Please also refer to the separate dictated note~for this date of service dictated separately.~Patient seen individually. Discussed the patient with Nursing staff reviewed the chart.~Reviewed interim history and current functioning. Reviewed vital signs,~Labs/ Radiology~and current medications noted below. Continue current treatment with the changes noted in the dictated addendum note Assessment: Vital Signs: Vital Signs Date Time Temp Pulse Resp B/P (MAP) Pulse Ox O2 Delivery O2 Flow Rate FiO2 02/10/17 15:59 97.6 87 16 101/67 (78) 100 02/06/17 21:15 Room Air I&O Intake and Output 02/11/17 07:00 Intake Total 240 ml Balance 240 ml Intake Oral 240 ml Current Medications: Meds: Current Medications Al Hydroxide/Mg Hydroxide (Mylanta Plus Xs) 15 ml PRN AFTMEALHC PRN PO DYSPEPSIA; Start 02/06/17 at 22:15 Magnesium Hydroxide (Milk Of Magnesia) 2,400 mg PRN QHS PRN PO CONSTIPATION; Start 02/06/17 at 22:15 Nicotine (Nicoderm Cq 21mg) 1 patch DAILY TD Last administered on 02/10/17 07: 52; Start 02/07/17 at 09:00 Aripiprazole (Abilify) 2.5 mg DAILY PO Last administered on 02/08/17 08:06; Start 02/07/17 at 09:00; Stop 02/08/17 at 18:25; Status DC Lamotrigine (LaMICtal) 25 mg BID PO Last administered on 02/10/17 19:16; Start 02/06/17 at 23:00 Lorazepam (Ativan) 0.5 mg PRN Q2HR PRN PO ANXIETY / AGITATION Last administered on 02/09/17 02:01; Start 02/06/17 at 22:15 Olanzapine (ZyPREXA ZYDIS) 2.5 mg PRN Q2HR PRN PO ANXIETY / AGITATION; Start at 22:15 Olanzapine (ZyPREXA) 5 mg DAILY PO Last administered on 02/10/17 07:53; Start 02/07/17 at 09:00; Stop 02/10/17 at 18:47; Status DC Trazodone HCl (Desyrel) 50 mg PRN QHS PRN PO INSOMNIA; Start 02/06/17 at 22:15 ; Stop 02/07/17 at 18:20; Status DC Trazodone HCl (Desyrel) 50 mg QHS PO Last administered on 02/06/17 23:43; Start 02/06/17 at 23:00; Stop 02/07/17 at 18:20; Status DC Citalopram Hydrobromide (CeleXA) 20 mg DAILY PO Last administered on 02/10/17 07:54; Start 02/07/17 at 09:00; Stop 02/10/17 at 18:54; Status DC Acetaminophen (Tylenol) 650 mg PRN Q4HRS PRN PO PAIN / TEMP; Start 02/06/17 at 22:15 Baclofen (Lioresal) 20 mg QID PO Last administered on 02/10/17 19:17; Start at 23:00 Bisacodyl (Dulcolax Supp) 10 mg PRN DAILY PRN RC CONSTIPATION; Start 02/06/17 at 22:15 Cetirizine HCl (ZyrTEC) 10 mg DAILY PO Last administered on 02/10/17 07:54; Start 02/07/17 at 09:00 Vitamin D (Vitamin D3) 2,000 unit DAILY PO Last administered on 02/10/17 07:53 ; Start 02/07/17 at 09:00 Ferrous Sulfate (Feosol) 325 mg BIDWMEALS PO Last administered on 02/10/17 17: 12; Start 02/07/17 at 08:00 Furosemide (Lasix) 40 mg DAILY PO Last administered on 02/10/17 07:54; Start at 09:00 Acetaminophen/ Hydrocodone Bitart (Lortab 5/325) 1 tab PRN Q6HRS PRN PO Severe Pain; Start 02/06/17 at 22:15 Levothyroxine Sodium (Synthroid) 50 mcg DAILY07 PO Last administered on 05:32; Start 02/07/17 at 07:00 Lisinopril (Prinivil) 5 mg DAILY PO Last administered on 02/10/17 07:53; Start 02/07/17 at 09:00 Polyethylene Glycol (miraLAX) 17 gm DAILY PO Last administered on 02/10/17 07: 52; Start 02/07/17 at 09:00 Potassium Chloride (Klor-Con) 20 meq DAILY PO Last administered on 02/10/17 07: 54; Start 02/07/17 at 09:00 Senna/Docusate Sodium (Senna Plus) 1 tab BID PO Last administered on 02/10/17 19:17; Start 02/06/17 at 23:00 Sodium Fluoride (Sf 5000 Plus) 1 jaquan QHS DT Last administered on 02/10/17 19:32 ; Start 02/07/17 at 21:00 Tizanidine HCl (Zanaflex) 4 mg QID PO Last administered on 02/10/17 19:17; Start 02/06/17 at 23:00 Tramadol HCl (Ultram) 50 mg PRN Q6HRS PRN PO PAIN; Start 02/06/17 at 22:15 Acyclovir (Zovirax) 800 mg 5XDAY PO Last administered on 02/09/17 19:50; Start 02/07/17 at 06:00; Stop 02/09/17 at 22:01; Status DC Calcium/Vitamin D (Oscal D 500mg/ 200uts) 1 tab BIDWMEALS PO Last administered on 02/10/17 17:12; Start 02/07/17 at 08:00 Non-Formulary Medication 1 cap DAILY PO ; Start 02/07/17 at 09:00; Status UNV Non-Formulary Medication 1 jaquan QHS TP ; Start 02/07/17 at 21:00; Status UNV Oxybutynin Chloride (Ditropan) 5 mg BID PO Last administered on 02/10/17 19:16 ; Start 02/07/17 at 09:00 Non-Formulary Medication 0.5 mg QODAY PO Last administered on 02/10/17 07:57; Start 02/08/17 at 09:00 Loperamide HCl (Imodium) 2 mg PRN QID PRN PO DIARRHEA; Start 02/06/17 at 22:30 Magnesium Oxide (Magnesium Oxide) 400 mg DAILY PO Last administered on 07:54; Start 02/07/17 at 09:00 Non-Formulary Medication 1 jaquan PRN QID PRN TP MUSCLE PAIN; Start 02/06/17 at 22 :15; Status UNV Mupirocin (Bactroban) 1 jaquan BID TP Last administered on 02/08/17 09:47; Start 02/07/17 at 09:00; Stop 02/08/17 at 15:33; Status DC Naproxen (Naprosyn) 250 mg HS PO Last administered on 02/10/17 19:17; Start at 23:00 Diphenhydramine HCl (Benadryl) 25 mg HS PO Last administered on 02/10/17 19:16 ; Start 02/06/17 at 23:00 Cyanocobalamin (Vitamin B-12) 1,000 mcg WEEKLY IM Last administered on 08:15; Start 02/08/17 at 09:00 Trazodone HCl (Desyrel) 100 mg QHS PO Last administered on 02/10/17 19:16; Start 02/07/17 at 21:00 Trazodone HCl (Desyrel) 100 mg PRN QHS PRN PO INSOMNIA Last administered on 01:03; Start 02/07/17 at 18:30 Oxcarbazepine (Trileptal) 300 mg TID PO Last administered on 02/10/17 12:57; Start 02/08/17 at 21:00; Stop 02/10/17 at 18:47; Status DC Olanzapine (ZyPREXA) 5 mg HS PO ; Start 02/11/17 at 21:00 Oxcarbazepine (Trileptal) 300 mg BID PO Last administered on 02/10/17 19:32; Start 02/10/17 at 21:00 Active Scripts Active Reported Vitamin D3 (Cholecalciferol (Vitamin D3)) 1,000 Unit Tablet 2,000 Unit PO DAILY Vicks Vaporub Ointment (Eucalyptus Oil/Menthol/Camphor) 50 Gm Oint...g. 1 Jaquan TP QHS Trazodone Hcl 50 Mg Tablet 50 Mg PO PRN QHS PRN Trazodone Hcl 50 Mg Tablet 50 Mg PO QHS Toviaz (Fesoterodine Fumarate) 4 Mg Tab.er.24h 4 Mg PO DAILY Tizanidine Hcl (Tizanidine HCl) 4 Mg Tablet 4 Mg PO QID Senna S Tablet (Sennosides/Docusate Sodium) 1 Each Tablet 1 Tab PO BID Klor-Con M20 (Potassium Chloride) 20 Meq Tab.er.prt 20 Meq PO DAILY Zyprexa (Olanzapine) 5 Mg Tablet 5 Mg PO DAILY Zyprexa Zydis (Olanzapine) 5 Mg Tab.rapdis 2.5 Mg PO PRN Q2HR PRN MDD 15mg Miralax (Polyethylene Glycol 3350) 119 Gm Powder 17 Gm PO DAILY Magnesium Oxide 500 Mg Tablet 500 Mg PO DAILY Lorazepam 0.5 Mg Tablet 0.5 Mg PO PRN Q2HR PRN MDD 2mg Loperamide (Loperamide Hcl) 2 Mg Tablet 2 Mg PO PRN QID PRN Lisinopril 5 Mg Tablet 5 Mg PO DAILY Levothyroxine Sodium 50 Mcg Tablet 50 Mcg PO DAILY07 Lasix (Furosemide) 40 Mg Tablet 40 Mg PO DAILY Lamotrigine 25 Mg Tablet 25 Mg PO BID Gilenya (Fingolimod Hcl) 0.5 Mg Capsule 0.5 Mg PO QODAY Ferrous Sulfate 325 Mg Tablet 325 Mg PO BID Escitalopram Oxalate 10 Mg Tablet 10 Mg PO DAILY Bisacodyl 10 Mg Supp.rect 10 Mg RC PRN DAILY PRN Cetirizine Hcl 10 Mg Tablet 10 Mg PO DAILY Calcium 600 + Vit D3 400 Tab (Calcium Carbonate/Vitamin D3) 1 Each Tablet 1 Tab PO BID Biofreeze (Menthol) 118 Ml Gel..ml. 1 Jaquan TP PRN QID PRN Bactroban (Mupirocin Calcium) 15 Gm Cream..g. 1 Gm TP BID Baclofen 20 Mg Tablet 20 Mg PO QID Abilify (Aripiprazole) 5 Mg Tablet 2.5 Mg PO DAILY Aleve Pm Caplet (Naproxen Na-Diphenhydramin HCl) 1 Each Tablet 1 Tab PO QHS Acyclovir 800 Mg Tablet 800 Mg PO 5XDAY 7 Days Tylenol (Acetaminophen) 325 Mg Tablet 650 Mg PO PRN Q4HRS PRN MDD 3000mg Tramadol Hcl (Tramadol HCl) 50 Mg Tablet 50 Mg PO PRN Q6HRS PRN Hydrocodone-Apap 5-325 (Hydrocodone Bit/Acetaminophen) 1 Each Tablet 1 Tab PO PRN Q6HRS PRN Denta 5000 Plus (Sodium Fluoride) 51 Gm Cream..g. 1 Jaquan DT QHS Cranberry Plus Vitamin C Sftgl (Cranberry Conc/Ascorbic Acid) 1 Each Capsule 1 Cap PO DAILY Diagnosis: Problems: (1) Behavioral disorder (2) Bipolar 1 disorder, mixed, moderate (3) Anxiety disorder (4) Impulse control disorder KERRY MAYORGA MD Feb 10, 2017 19:39
--- NOTE | 2017-02-11 05:31 | PN ---
DATE: 02/09/2017 This late entry 02/09/2017 covers elements, not covered in my initial note of 02/09/2017. SUBJECTIVE: The patient was seen individually evening of 02/09/2017, staffed at a treatment team meeting morning of 02/09/2017 with entire team. Reviewed the patient's history, diagnosis, and current medications. The patient's sister, Sofia, attended the treatment team meeting. We discussed family history of bipolar disorder, worsening bipolar symptoms with the patient. Appetite is fair. She slept 4 hours previous evening. Discussed psychotropic changes that are being made. UA has been checked, she probably has a UTI. Culture is pending. REVIEW OF SYSTEMS: Ambulation impaired, in wheelchair. No CV, , pulmonary, eye, ENT system symptoms on review. Reliability poor. MENTAL STATUS EXAM: Oriented to herself and situation. Speech coherent, rapid at times. She was making hand gestures above her head and to the side with both arms outstretched as if she was flying at times and then making weird noises consistent with ____ manic, grandiose, hyperverbal. Speech coherent, rapid. Abstraction fair, computation impaired, language function intact, attention span short. Mood and affect labile, manic. LABORATORY DATA: Reviewed. IMPRESSION: Unchanged from initial note. PLAN: Trileptal was initiated. We have increased it to 300 mg 3 times a day. Continue rest of her psychotropics unchanged including Lamictal, Celexa, Zyprexa, trazodone, Ativan p.r.n. Adjust further as clinically indicated ____ confirmed. MAN Destin MAYORGA MD DR: INGRIS/buzz JOB#: [id number] / [id number]
[2017-02-11 05:35] VITALS: BP 123/74
[2017-02-11] MEDS: LEVOTHYROXINE 50 MCG TABLET PO SCH (05:52)
[2017-02-11] MEDS: CHOLECALCIFEROL (VITAMIN D3) 1,000 UNIT TABLET PO SCH (07:03)
[2017-02-11] MEDS: NICOTINE 21MG PATCH. TD SCH (07:03)
[2017-02-11] MEDS: POLYETHYLENE GLYCOL 3350 17 GM PACKET. PO SCH (07:03)
[2017-02-11] MEDS: SENNOSIDES/DOCUSATE 8.6/50MG TABLET. PO SCH ×2 (07:04→19:16)
[2017-02-11] MEDS: MAGNESIUM OXIDE 400 MG TABLET PO SCH (07:04)
[2017-02-11] MEDS: POTASSIUM CHLORIDE 20 MEQ TABLET.ER. PO SCH (07:04)
[2017-02-11] MEDS: FUROSEMIDE 40 MG TABLET PO SCH (07:04)
[2017-02-11] MEDS: FERROUS SULFATE 325 MG TABLET PO SCH ×2 (07:04→18:30)
[2017-02-11] MEDS: BACLOFEN 20 MG TABLET PO SCH ×4 (07:04→19:18)
[2017-02-11] MEDS: lamoTRIgine 25 MG TABLET. PO SCH ×2 (07:04→19:20)
[2017-02-11] MEDS: LISINOPRIL 5 MG TABLET. PO SCH (07:05)
[2017-02-11] MEDS: CALCIUM CARB/VIT D3 500/200 TABLET PO SCH ×2 (07:05→18:30)
[2017-02-11] MEDS: OXYBUTYNIN CHLORIDE 5 MG TABLET PO SCH ×2 (07:05→19:16)
[2017-02-11] MEDS: tiZANidine 4 MG TABLET. PO SCH ×4 (07:05→19:21)
[2017-02-11] MEDS: CETIRIZINE HCL 10 MG TABLET PO SCH (07:05)
[2017-02-11] MEDS ORDERED: ONDANSETRON ODT 4 MG TAB.RAPDIS PO PRN (12:30)
[2017-02-11 15:55] VITALS: BP 140/86
[2017-02-11] MEDS: diphenhydrAMINE HCL 25 MG CAPSULE PO SCH (19:14)
[2017-02-11] MEDS: NAPROXEN 250 MG TABLET PO SCH (19:15)
[2017-02-11] MEDS: traZODone 100 MG TABLET. PO SCH (19:16)
[2017-02-11] MEDS: SODIUM FLUORIDE DT SCH (19:46)
[2017-02-11] MEDS: [UNRECOGNIZED DRUG - OTHER] DT SCH (19:46)
[2017-02-11] MEDS ORDERED: OLANZapine 5 MG TABLET PO SCH (21:00)
--- NOTE | 2017-02-11 23:14 | PDOC ---
Exam Mustapha Demential Exam: Mustapha Note: Please also refer to the separate dictated note~for this date of service dictated separately.~Patient seen individually. Discussed the patient with Nursing staff reviewed the chart.~Reviewed interim history and current functioning. Reviewed vital signs,~Labs/ Radiology~and current medications noted below. Continue current treatment with the changes noted in the dictated addendum note Assessment: Vital Signs: Vital Signs Date Time Temp Pulse Resp B/P (MAP) Pulse Ox O2 Delivery O2 Flow Rate FiO2 02/11/17 15:55 97.8 105 18 140/86 (104) 98 02/06/17 21:15 Room Air I&O Intake and Output 02/12/17 06:59 Intake Total 960 ml Balance 960 ml Intake Oral 960 ml # Voids 1 Current Medications: Meds: Current Medications Al Hydroxide/Mg Hydroxide (Mylanta Plus Xs) 15 ml PRN AFTMEALHC PRN PO DYSPEPSIA; Start 02/06/17 at 22:15 Magnesium Hydroxide (Milk Of Magnesia) 2,400 mg PRN QHS PRN PO CONSTIPATION; Start 02/06/17 at 22:15 Nicotine (Nicoderm Cq 21mg) 1 patch DAILY TD Last administered on 02/11/17 07: 03; Start 02/07/17 at 09:00; Stop 02/11/17 at 09:43; Status DC Aripiprazole (Abilify) 2.5 mg DAILY PO Last administered on 02/08/17 08:06; Start 02/07/17 at 09:00; Stop 02/08/17 at 18:25; Status DC Lamotrigine (LaMICtal) 25 mg BID PO Last administered on 02/11/17 19:20; Start 02/06/17 at 23:00 Lorazepam (Ativan) 0.5 mg PRN Q2HR PRN PO ANXIETY / AGITATION Last administered on 02/09/17 02:01; Start 02/06/17 at 22:15 Olanzapine (ZyPREXA ZYDIS) 2.5 mg PRN Q2HR PRN PO ANXIETY / AGITATION; Start at 22:15 Olanzapine (ZyPREXA) 5 mg DAILY PO Last administered on 02/10/17 07:53; Start 02/07/17 at 09:00; Stop 02/10/17 at 18:47; Status DC Trazodone HCl (Desyrel) 50 mg PRN QHS PRN PO INSOMNIA; Start 02/06/17 at 22:15 ; Stop 02/07/17 at 18:20; Status DC Trazodone HCl (Desyrel) 50 mg QHS PO Last administered on 02/06/17 23:43; Start 02/06/17 at 23:00; Stop 02/07/17 at 18:20; Status DC Citalopram Hydrobromide (CeleXA) 20 mg DAILY PO Last administered on 02/10/17 07:54; Start 02/07/17 at 09:00; Stop 02/10/17 at 18:54; Status DC Acetaminophen (Tylenol) 650 mg PRN Q4HRS PRN PO PAIN / TEMP; Start 02/06/17 at 22:15 Baclofen (Lioresal) 20 mg QID PO Last administered on 02/11/17 19:18; Start at 23:00 Bisacodyl (Dulcolax Supp) 10 mg PRN DAILY PRN RC CONSTIPATION; Start 02/06/17 at 22:15 Cetirizine HCl (ZyrTEC) 10 mg DAILY PO Last administered on 02/11/17 07:05; Start 02/07/17 at 09:00 Vitamin D (Vitamin D3) 2,000 unit DAILY PO Last administered on 02/11/17 07:03 ; Start 02/07/17 at 09:00 Ferrous Sulfate (Feosol) 325 mg BIDWMEALS PO Last administered on 02/11/17 18: 30; Start 02/07/17 at 08:00 Furosemide (Lasix) 40 mg DAILY PO Last administered on 02/11/17 07:04; Start at 09:00 Acetaminophen/ Hydrocodone Bitart (Lortab 5/325) 1 tab PRN Q6HRS PRN PO Severe Pain; Start 02/06/17 at 22:15 Levothyroxine Sodium (Synthroid) 50 mcg DAILY07 PO Last administered on 05:52; Start 02/07/17 at 07:00 Lisinopril (Prinivil) 5 mg DAILY PO Last administered on 02/11/17 07:05; Start 02/07/17 at 09:00 Polyethylene Glycol (miraLAX) 17 gm DAILY PO Last administered on 02/11/17 07: 03; Start 02/07/17 at 09:00 Potassium Chloride (Klor-Con) 20 meq DAILY PO Last administered on 02/11/17 07: 04; Start 02/07/17 at 09:00 Senna/Docusate Sodium (Senna Plus) 1 tab BID PO Last administered on 02/11/17 19:16; Start 02/06/17 at 23:00 Sodium Fluoride (Sf 5000 Plus) 1 jaquan QHS DT Last administered on 02/11/17 19:46 ; Start 02/07/17 at 21:00 Tizanidine HCl (Zanaflex) 4 mg QID PO Last administered on 02/11/17 19:21; Start 02/06/17 at 23:00 Tramadol HCl (Ultram) 50 mg PRN Q6HRS PRN PO PAIN; Start 02/06/17 at 22:15 Acyclovir (Zovirax) 800 mg 5XDAY PO Last administered on 02/09/17 19:50; Start 02/07/17 at 06:00; Stop 02/09/17 at 22:01; Status DC Calcium/Vitamin D (Oscal D 500mg/ 200uts) 1 tab BIDWMEALS PO Last administered on 02/11/17 18:30; Start 02/07/17 at 08:00 Non-Formulary Medication 1 cap DAILY PO ; Start 02/07/17 at 09:00; Status UNV Non-Formulary Medication 1 jaquan QHS TP ; Start 02/07/17 at 21:00; Status UNV Oxybutynin Chloride (Ditropan) 5 mg BID PO Last administered on 02/11/17 19:16 ; Start 02/07/17 at 09:00 Non-Formulary Medication 0.5 mg QODAY PO Last administered on 02/10/17 07:57; Start 02/08/17 at 09:00 Loperamide HCl (Imodium) 2 mg PRN QID PRN PO DIARRHEA; Start 02/06/17 at 22:30 Magnesium Oxide (Magnesium Oxide) 400 mg DAILY PO Last administered on 07:04; Start 02/07/17 at 09:00 Non-Formulary Medication 1 jaquan PRN QID PRN TP MUSCLE PAIN; Start 02/06/17 at 22 :15; Status UNV Mupirocin (Bactroban) 1 jaquan BID TP Last administered on 02/08/17 09:47; Start 02/07/17 at 09:00; Stop 02/08/17 at 15:33; Status DC Naproxen (Naprosyn) 250 mg HS PO Last administered on 02/11/17 19:15; Start at 23:00 Diphenhydramine HCl (Benadryl) 25 mg HS PO Last administered on 02/11/17 19:14 ; Start 02/06/17 at 23:00 Cyanocobalamin (Vitamin B-12) 1,000 mcg WEEKLY IM Last administered on 08:15; Start 02/08/17 at 09:00 Trazodone HCl (Desyrel) 100 mg QHS PO Last administered on 02/11/17 19:16; Start 02/07/17 at 21:00 Trazodone HCl (Desyrel) 100 mg PRN QHS PRN PO INSOMNIA Last administered on 01:03; Start 02/07/17 at 18:30 Oxcarbazepine (Trileptal) 300 mg TID PO Last administered on 02/10/17 12:57; Start 02/08/17 at 21:00; Stop 02/10/17 at 18:47; Status DC Olanzapine (ZyPREXA) 5 mg HS PO Last administered on 02/11/17 19:36; Start 02/11 at 21:00 Oxcarbazepine (Trileptal) 300 mg BID PO Last administered on 02/11/17 19:15; Start 02/10/17 at 21:00 Nicotine (Nicoderm Cq 14mg) 1 patch DAILY TD ; Start 02/12/17 at 09:00; Stop at 09:01 Nicotine (Nicoderm Cq 7mg) 1 patch DAILY TD ; Start 02/26/17 at 09:00; Stop at 09:01 Ondansetron HCl (Zofran Odt) 4 mg PRN Q8HRS PRN PO NAUSEA/VOMITING; Start at 12:30 Active Scripts Active Reported Vitamin D3 (Cholecalciferol (Vitamin D3)) 1,000 Unit Tablet 2,000 Unit PO DAILY Vicks Vaporub Ointment (Eucalyptus Oil/Menthol/Camphor) 50 Gm Oint...g. 1 Jaquan TP QHS Trazodone Hcl 50 Mg Tablet 50 Mg PO PRN QHS PRN Trazodone Hcl 50 Mg Tablet 50 Mg PO QHS Toviaz (Fesoterodine Fumarate) 4 Mg Tab.er.24h 4 Mg PO DAILY Tizanidine Hcl (Tizanidine HCl) 4 Mg Tablet 4 Mg PO QID Senna S Tablet (Sennosides/Docusate Sodium) 1 Each Tablet 1 Tab PO BID Klor-Con M20 (Potassium Chloride) 20 Meq Tab.er.prt 20 Meq PO DAILY Zyprexa (Olanzapine) 5 Mg Tablet 5 Mg PO DAILY Zyprexa Zydis (Olanzapine) 5 Mg Tab.rapdis 2.5 Mg PO PRN Q2HR PRN MDD 15mg Miralax (Polyethylene Glycol 3350) 119 Gm Powder 17 Gm PO DAILY Magnesium Oxide 500 Mg Tablet 500 Mg PO DAILY Lorazepam 0.5 Mg Tablet 0.5 Mg PO PRN Q2HR PRN MDD 2mg Loperamide (Loperamide Hcl) 2 Mg Tablet 2 Mg PO PRN QID PRN Lisinopril 5 Mg Tablet 5 Mg PO DAILY Levothyroxine Sodium 50 Mcg Tablet 50 Mcg PO DAILY07 Lasix (Furosemide) 40 Mg Tablet 40 Mg PO DAILY Lamotrigine 25 Mg Tablet 25 Mg PO BID Gilenya (Fingolimod Hcl) 0.5 Mg Capsule 0.5 Mg PO QODAY Ferrous Sulfate 325 Mg Tablet 325 Mg PO BID Escitalopram Oxalate 10 Mg Tablet 10 Mg PO DAILY Bisacodyl 10 Mg Supp.rect 10 Mg RC PRN DAILY PRN Cetirizine Hcl 10 Mg Tablet 10 Mg PO DAILY Calcium 600 + Vit D3 400 Tab (Calcium Carbonate/Vitamin D3) 1 Each Tablet 1 Tab PO BID Biofreeze (Menthol) 118 Ml Gel..ml. 1 Jaquan TP PRN QID PRN Bactroban (Mupirocin Calcium) 15 Gm Cream..g. 1 Gm TP BID Baclofen 20 Mg Tablet 20 Mg PO QID Abilify (Aripiprazole) 5 Mg Tablet 2.5 Mg PO DAILY Aleve Pm Caplet (Naproxen Na-Diphenhydramin HCl) 1 Each Tablet 1 Tab PO QHS Acyclovir 800 Mg Tablet 800 Mg PO 5XDAY 7 Days Tylenol (Acetaminophen) 325 Mg Tablet 650 Mg PO PRN Q4HRS PRN MDD 3000mg Tramadol Hcl (Tramadol HCl) 50 Mg Tablet 50 Mg PO PRN Q6HRS PRN Hydrocodone-Apap 5-325 (Hydrocodone Bit/Acetaminophen) 1 Each Tablet 1 Tab PO PRN Q6HRS PRN Denta 5000 Plus (Sodium Fluoride) 51 Gm Cream..g. 1 Jaquan DT QHS Cranberry Plus Vitamin C Sftgl (Cranberry Conc/Ascorbic Acid) 1 Each Capsule 1 Cap PO DAILY Diagnosis: Problems: (1) Multiple sclerosis (2) Behavioral disorder (3) Bipolar 1 disorder, mixed, moderate (4) Anxiety disorder (5) Impulse control disorder (6) Mild cognitive disorder KERRY MAYORGA MD Feb 11, 2017 23:14
--- NOTE | 2017-02-12 02:56 | PN ---
DATE: 02/10/2017 This late entry 02/10 covers elements, not covered in my initial note of 02/10. SUBJECTIVE: Per nursing report, the patient has been somewhat sedated during the day, not yelling out in the morning, and somewhat disorganized; otherwise oriented x 3, constantly moving bilateral upper extremities, and sexually inappropriate. At times, she states she is here because of bad thoughts thinking about "sex." REVIEW OF SYSTEMS: Ambulation impaired, in a wheelchair. No CV, , pulmonary, eye system symptoms on review. MENTAL STATUS EXAM: Oriented to herself and situation. Speech coherent, rapid at times. Abstraction fair, computation impaired, language function intact. Attention span short. Appears confused. Memory is impaired. No active suicidal or homicidal ideation. LABORATORY DATA: Reviewed. IMPRESSION: Unchanged from initial note. PLAN: Due to the over sedation during the day, reduced Trileptal from 300 mg 3 times a day down to 300 mg twice a day. Change the Zyprexa from 5 mg in the morning to 5 mg at night. Stop Celexa since she seems to have manic symptoms, antidepressants might worsen that. Continue Lamictal and the rest of her psychotropics. Adjust further as clinically indicated. KERRY MAYORGA MD DR: INGRIS/buzz JOB#: [id number] / [id number]
[2017-02-12 05:52] VITALS: BP 130/84
[2017-02-12] MEDS: LEVOTHYROXINE 50 MCG TABLET PO SCH (07:00)
[2017-02-12] MEDS: BACLOFEN 20 MG TABLET PO SCH ×4 (07:15→19:56)
[2017-02-12] MEDS: POLYETHYLENE GLYCOL 3350 17 GM PACKET. PO SCH (07:15)
[2017-02-12] MEDS: POTASSIUM CHLORIDE 20 MEQ TABLET.ER. PO SCH (07:15)
[2017-02-12] MEDS: MAGNESIUM OXIDE 400 MG TABLET PO SCH (07:15)
[2017-02-12] MEDS: LISINOPRIL 5 MG TABLET. PO SCH (07:15)
[2017-02-12] MEDS: tiZANidine 4 MG TABLET. PO SCH ×4 (07:15→19:56)
[2017-02-12] MEDS: FUROSEMIDE 40 MG TABLET PO SCH (07:15)
[2017-02-12] MEDS: lamoTRIgine 25 MG TABLET. PO SCH (07:15)
[2017-02-12] MEDS: CHOLECALCIFEROL (VITAMIN D3) 1,000 UNIT TABLET PO SCH (07:16)
[2017-02-12] MEDS: OXYBUTYNIN CHLORIDE 5 MG TABLET PO SCH ×2 (07:16→19:56)
[2017-02-12] MEDS: FERROUS SULFATE 325 MG TABLET PO SCH ×2 (07:16→17:49)
[2017-02-12] MEDS: CALCIUM CARB/VIT D3 500/200 TABLET PO SCH ×2 (07:16→17:49)
[2017-02-12] MEDS: SENNOSIDES/DOCUSATE 8.6/50MG TABLET. PO SCH ×2 (07:16→19:56)
[2017-02-12] MEDS: CETIRIZINE HCL 10 MG TABLET PO SCH (07:16)
[2017-02-12] MEDS: NICOTINE 14MG PATCH. TD SCH (09:00)
[2017-02-12 15:41] VITALS: BP 129/64
[2017-02-12] MEDS: NAPROXEN 250 MG TABLET PO SCH (19:55)
[2017-02-12] MEDS: diphenhydrAMINE HCL 25 MG CAPSULE PO SCH (19:56)
[2017-02-12] MEDS: traZODone 100 MG TABLET. PO SCH (19:56)
[2017-02-12] MEDS: risperiDONE 0.5 MG TABLET. PO SCH (19:59)
[2017-02-12] MEDS: SODIUM FLUORIDE DT SCH (20:03)
[2017-02-12] MEDS: [UNRECOGNIZED DRUG - OTHER] DT SCH (20:03)
--- NOTE | 2017-02-12 21:42 | PDOC ---
Exam Mustapha Demential Exam: Mustapha Note: Please also refer to the separate dictated note~for this date of service dictated separately.~Patient seen individually. Discussed the patient with Nursing staff reviewed the chart.~Reviewed interim history and current functioning. Reviewed vital signs,~Labs/ Radiology~and current medications noted below. Continue current treatment with the changes noted in the dictated addendum note Assessment: Vital Signs: Vital Signs Date Time Temp Pulse Resp B/P (MAP) Pulse Ox O2 Delivery O2 Flow Rate FiO2 02/12/17 15:41 98.4 98 20 129/64 (85) 100 02/06/17 21:15 Room Air I&O Intake and Output 02/13/17 06:59 Intake Total 840 ml Balance 840 ml Intake Oral 840 ml Current Medications: Meds: Current Medications Al Hydroxide/Mg Hydroxide (Mylanta Plus Xs) 15 ml PRN AFTMEALHC PRN PO DYSPEPSIA; Start 02/06/17 at 22:15 Magnesium Hydroxide (Milk Of Magnesia) 2,400 mg PRN QHS PRN PO CONSTIPATION; Start 02/06/17 at 22:15 Nicotine (Nicoderm Cq 21mg) 1 patch DAILY TD Last administered on 02/11/17 07: 03; Start 02/07/17 at 09:00; Stop 02/11/17 at 09:43; Status DC Aripiprazole (Abilify) 2.5 mg DAILY PO Last administered on 02/08/17 08:06; Start 02/07/17 at 09:00; Stop 02/08/17 at 18:25; Status DC Lamotrigine (LaMICtal) 25 mg BID PO Last administered on 02/12/17 07:15; Start 02/06/17 at 23:00; Stop 02/12/17 at 10:44; Status DC Lorazepam (Ativan) 0.5 mg PRN Q2HR PRN PO ANXIETY / AGITATION Last administered on 02/09/17 02:01; Start 02/06/17 at 22:15 Olanzapine (ZyPREXA ZYDIS) 2.5 mg PRN Q2HR PRN PO ANXIETY / AGITATION; Start at 22:15 Olanzapine (ZyPREXA) 5 mg DAILY PO Last administered on 02/10/17 07:53; Start 02/07/17 at 09:00; Stop 02/10/17 at 18:47; Status DC Trazodone HCl (Desyrel) 50 mg PRN QHS PRN PO INSOMNIA; Start 02/06/17 at 22:15 ; Stop 02/07/17 at 18:20; Status DC Trazodone HCl (Desyrel) 50 mg QHS PO Last administered on 02/06/17 23:43; Start 02/06/17 at 23:00; Stop 02/07/17 at 18:20; Status DC Citalopram Hydrobromide (CeleXA) 20 mg DAILY PO Last administered on 02/10/17 07:54; Start 02/07/17 at 09:00; Stop 02/10/17 at 18:54; Status DC Acetaminophen (Tylenol) 650 mg PRN Q4HRS PRN PO PAIN / TEMP; Start 02/06/17 at 22:15 Baclofen (Lioresal) 20 mg QID PO Last administered on 02/12/17 19:56; Start at 23:00 Bisacodyl (Dulcolax Supp) 10 mg PRN DAILY PRN RC CONSTIPATION; Start 02/06/17 at 22:15 Cetirizine HCl (ZyrTEC) 10 mg DAILY PO Last administered on 02/12/17 07:16; Start 02/07/17 at 09:00 Vitamin D (Vitamin D3) 2,000 unit DAILY PO Last administered on 02/12/17 07:16 ; Start 02/07/17 at 09:00 Ferrous Sulfate (Feosol) 325 mg BIDWMEALS PO Last administered on 02/12/17 17: 49; Start 02/07/17 at 08:00 Furosemide (Lasix) 40 mg DAILY PO Last administered on 02/12/17 07:15; Start at 09:00 Acetaminophen/ Hydrocodone Bitart (Lortab 5/325) 1 tab PRN Q6HRS PRN PO Severe Pain; Start 02/06/17 at 22:15 Levothyroxine Sodium (Synthroid) 50 mcg DAILY07 PO Last administered on 07:00; Start 02/07/17 at 07:00 Lisinopril (Prinivil) 5 mg DAILY PO Last administered on 02/12/17 07:15; Start 02/07/17 at 09:00 Polyethylene Glycol (miraLAX) 17 gm DAILY PO Last administered on 02/12/17 07: 15; Start 02/07/17 at 09:00 Potassium Chloride (Klor-Con) 20 meq DAILY PO Last administered on 02/12/17 07: 15; Start 02/07/17 at 09:00 Senna/Docusate Sodium (Senna Plus) 1 tab BID PO Last administered on 02/12/17 19:56; Start 02/06/17 at 23:00 Sodium Fluoride (Sf 5000 Plus) 1 jaquan QHS DT Last administered on 02/11/17 19:46 ; Start 02/07/17 at 21:00 Tizanidine HCl (Zanaflex) 4 mg QID PO Last administered on 02/12/17 19:56; Start 02/06/17 at 23:00 Tramadol HCl (Ultram) 50 mg PRN Q6HRS PRN PO PAIN; Start 02/06/17 at 22:15 Acyclovir (Zovirax) 800 mg 5XDAY PO Last administered on 02/09/17 19:50; Start 02/07/17 at 06:00; Stop 02/09/17 at 22:01; Status DC Calcium/Vitamin D (Oscal D 500mg/ 200uts) 1 tab BIDWMEALS PO Last administered on 02/12/17 17:49; Start 02/07/17 at 08:00 Non-Formulary Medication 1 cap DAILY PO ; Start 02/07/17 at 09:00; Status UNV Non-Formulary Medication 1 jaquan QHS TP ; Start 02/07/17 at 21:00; Status UNV Oxybutynin Chloride (Ditropan) 5 mg BID PO Last administered on 02/12/17 19:56 ; Start 02/07/17 at 09:00 Non-Formulary Medication 0.5 mg QODAY PO Last administered on 02/12/17 07:28; Start 02/08/17 at 09:00 Loperamide HCl (Imodium) 2 mg PRN QID PRN PO DIARRHEA; Start 02/06/17 at 22:30 Magnesium Oxide (Magnesium Oxide) 400 mg DAILY PO Last administered on 07:15; Start 02/07/17 at 09:00 Non-Formulary Medication 1 jaquan PRN QID PRN TP MUSCLE PAIN; Start 02/06/17 at 22 :15; Status UNV Mupirocin (Bactroban) 1 jaquan BID TP Last administered on 02/08/17 09:47; Start 02/07/17 at 09:00; Stop 02/08/17 at 15:33; Status DC Naproxen (Naprosyn) 250 mg HS PO Last administered on 02/12/17 19:55; Start at 23:00 Diphenhydramine HCl (Benadryl) 25 mg HS PO Last administered on 02/12/17 19:56 ; Start 02/06/17 at 23:00 Cyanocobalamin (Vitamin B-12) 1,000 mcg WEEKLY IM Last administered on 08:15; Start 02/08/17 at 09:00 Trazodone HCl (Desyrel) 100 mg QHS PO Last administered on 02/12/17 19:56; Start 02/07/17 at 21:00 Trazodone HCl (Desyrel) 100 mg PRN QHS PRN PO INSOMNIA Last administered on 01:03; Start 02/07/17 at 18:30 Oxcarbazepine (Trileptal) 300 mg TID PO Last administered on 02/10/17 12:57; Start 02/08/17 at 21:00; Stop 02/10/17 at 18:47; Status DC Olanzapine (ZyPREXA) 5 mg HS PO Last administered on 02/11/17 19:36; Start 02/11 at 21:00; Stop 02/12/17 at 10:44; Status DC Oxcarbazepine (Trileptal) 300 mg BID PO Last administered on 02/12/17 19:56; Start 02/10/17 at 21:00 Nicotine (Nicoderm Cq 14mg) 1 patch DAILY TD Last administered on 02/12/17 09: 00; Start 02/12/17 at 09:00; Stop 02/25/17 at 09:01 Nicotine (Nicoderm Cq 7mg) 1 patch DAILY TD ; Start 02/26/17 at 09:00; Stop at 09:01 Ondansetron HCl (Zofran Odt) 4 mg PRN Q8HRS PRN PO NAUSEA/VOMITING; Start at 12:30 Risperidone (RisperDAL) 0.5 mg HS PO Last administered on 02/12/17t 19:59; Start 02/12/17 at 21:00 Active Scripts Active Reported Vitamin D3 (Cholecalciferol (Vitamin D3)) 1,000 Unit Tablet 2,000 Unit PO DAILY Vicks Vaporub Ointment (Eucalyptus Oil/Menthol/Camphor) 50 Gm Oint...g. 1 Jaquan TP QHS Trazodone Hcl 50 Mg Tablet 50 Mg PO PRN QHS PRN Trazodone Hcl 50 Mg Tablet 50 Mg PO QHS Toviaz (Fesoterodine Fumarate) 4 Mg Tab.er.24h 4 Mg PO DAILY Tizanidine Hcl (Tizanidine HCl) 4 Mg Tablet 4 Mg PO QID Senna S Tablet (Sennosides/Docusate Sodium) 1 Each Tablet 1 Tab PO BID Klor-Con M20 (Potassium Chloride) 20 Meq Tab.er.prt 20 Meq PO DAILY Zyprexa (Olanzapine) 5 Mg Tablet 5 Mg PO DAILY Zyprexa Zydis (Olanzapine) 5 Mg Tab.rapdis 2.5 Mg PO PRN Q2HR PRN MDD 15mg Miralax (Polyethylene Glycol 3350) 119 Gm Powder 17 Gm PO DAILY Magnesium Oxide 500 Mg Tablet 500 Mg PO DAILY Lorazepam 0.5 Mg Tablet 0.5 Mg PO PRN Q2HR PRN MDD 2mg Loperamide (Loperamide Hcl) 2 Mg Tablet 2 Mg PO PRN QID PRN Lisinopril 5 Mg Tablet 5 Mg PO DAILY Levothyroxine Sodium 50 Mcg Tablet 50 Mcg PO DAILY07 Lasix (Furosemide) 40 Mg Tablet 40 Mg PO DAILY Lamotrigine 25 Mg Tablet 25 Mg PO BID Gilenya (Fingolimod Hcl) 0.5 Mg Capsule 0.5 Mg PO QODAY Ferrous Sulfate 325 Mg Tablet 325 Mg PO BID Escitalopram Oxalate 10 Mg Tablet 10 Mg PO DAILY Bisacodyl 10 Mg Supp.rect 10 Mg RC PRN DAILY PRN Cetirizine Hcl 10 Mg Tablet 10 Mg PO DAILY Calcium 600 + Vit D3 400 Tab (Calcium Carbonate/Vitamin D3) 1 Each Tablet 1 Tab PO BID Biofreeze (Menthol) 118 Ml Gel..ml. 1 Jaquan TP PRN QID PRN Bactroban (Mupirocin Calcium) 15 Gm Cream..g. 1 Gm TP BID Baclofen 20 Mg Tablet 20 Mg PO QID Abilify (Aripiprazole) 5 Mg Tablet 2.5 Mg PO DAILY Aleve Pm Caplet (Naproxen Na-Diphenhydramin HCl) 1 Each Tablet 1 Tab PO QHS Acyclovir 800 Mg Tablet 800 Mg PO 5XDAY 7 Days Tylenol (Acetaminophen) 325 Mg Tablet 650 Mg PO PRN Q4HRS PRN MDD 3000mg Tramadol Hcl (Tramadol HCl) 50 Mg Tablet 50 Mg PO PRN Q6HRS PRN Hydrocodone-Apap 5-325 (Hydrocodone Bit/Acetaminophen) 1 Each Tablet 1 Tab PO PRN Q6HRS PRN Denta 5000 Plus (Sodium Fluoride) 51 Gm Cream..g. 1 Jaquan DT QHS Cranberry Plus Vitamin C Sftgl (Cranberry Conc/Ascorbic Acid) 1 Each Capsule 1 Cap PO DAILY Diagnosis: Problems: (1) Behavioral disorder (2) Bipolar 1 disorder, mixed, moderate (3) Anxiety disorder (4) Impulse control disorder KERRY MAYORGA MD Feb 12, 2017 21:42
--- NOTE | 2017-02-13 00:08 | PN ---
DATE: 02/11/2017 SUBJECTIVE: This is a late entry 02/11/2017 covers elements not covered in my initial note. Overall per nursing report, the patient has been more awake during the day vomited x 1 and received Zofran. She has been restless. Still labile in her mood and confused. REVIEW OF SYSTEMS: Ambulation impaired in wheelchair. No CV, , pulmonary, eye, or ENT system symptoms on review. Reliability poor. MENTAL STATUS EXAM: Oriented to herself and at times to situation. Speech coherent and rapid at times. Abstraction fair, computation impaired, and language function intact. . LABORATORY DATA: Reviewed. CT of the head generalized parenchymal atrophy. Small scattered decreased attenuation within periventricular subcortical white matter. Both cerebral hemispheres consistent with small vessel ischemic disease. No acute changes noted. IMPRESSION: Unchanged from initial note. PLAN: Starting 02/12/2017, we will change the Zyprexa to Risperdal 0.5 mg at bedtime given her ongoing psychotic symptoms. Maintain Trileptal 300 b.i.d. and the rest unchanged for now. We will go ahead and stop the Lamictal as well on 02/12/2017. Make further adjustments as clinically indicated. KERRY MAYORGA MD DR: INGRIS/buzz JOB#: [id number] / [id number]
[2017-02-13] MEDS: LEVOTHYROXINE 50 MCG TABLET PO SCH (05:28)
[2017-02-13 06:20] VITALS: BP 128/82
[2017-02-13] MEDS: MAGNESIUM OXIDE 400 MG TABLET PO SCH (09:23)
[2017-02-13] MEDS: FERROUS SULFATE 325 MG TABLET PO SCH ×2 (09:23→17:09)
[2017-02-13] MEDS: FUROSEMIDE 40 MG TABLET PO SCH (09:23)
[2017-02-13] MEDS: POLYETHYLENE GLYCOL 3350 17 GM PACKET. PO SCH (09:23)
[2017-02-13] MEDS: SENNOSIDES/DOCUSATE 8.6/50MG TABLET. PO SCH ×2 (09:23→19:15)
[2017-02-13] MEDS: BACLOFEN 20 MG TABLET PO SCH ×4 (09:24→19:15)
[2017-02-13] MEDS: LISINOPRIL 5 MG TABLET. PO SCH (09:24)
[2017-02-13] MEDS: POTASSIUM CHLORIDE 20 MEQ TABLET.ER. PO SCH (09:24)
[2017-02-13] MEDS: CETIRIZINE HCL 10 MG TABLET PO SCH (09:25)
[2017-02-13] MEDS: tiZANidine 4 MG TABLET. PO SCH ×4 (09:25→19:15)
[2017-02-13] MEDS: CALCIUM CARB/VIT D3 500/200 TABLET PO SCH ×2 (09:25→17:09)
[2017-02-13] MEDS: CHOLECALCIFEROL (VITAMIN D3) 1,000 UNIT TABLET PO SCH (09:25)
[2017-02-13] MEDS: OXYBUTYNIN CHLORIDE 5 MG TABLET PO SCH ×2 (09:25→19:15)
[2017-02-13] MEDS: NICOTINE 14MG PATCH. TD SCH (09:28)
[2017-02-13 15:41] VITALS: BP 113/81
[2017-02-13] MEDS: risperiDONE 0.5 MG TABLET. PO SCH (19:15)
[2017-02-13] MEDS: diphenhydrAMINE HCL 25 MG CAPSULE PO SCH (19:16)
[2017-02-13] MEDS: traZODone 100 MG TABLET. PO SCH (19:16)
[2017-02-13] MEDS: NAPROXEN 250 MG TABLET PO SCH (19:16)
[2017-02-13] MEDS: SODIUM FLUORIDE DT SCH (19:18)
[2017-02-13] MEDS: [UNRECOGNIZED DRUG - OTHER] DT SCH (19:18)
--- NOTE | 2017-02-13 22:38 | PDOC ---
Exam Mustapha Demential Exam: Mustapha Note: Please also refer to the separate dictated note~for this date of service dictated separately.~Patient seen individually. Discussed the patient with Nursing staff reviewed the chart.~Reviewed interim history and current functioning. Reviewed vital signs,~Labs/ Radiology~and current medications noted below. Continue current treatment with the changes noted in the dictated addendum note Assessment: Vital Signs: Vital Signs Date Time Temp Pulse Resp B/P (MAP) Pulse Ox O2 Delivery O2 Flow Rate FiO2 02/13/17 15:41 98.3 76 16 113/81 (92) 100 I&O Intake and Output 02/14/17 06:59 Intake Total 1080 ml Balance 1080 ml Intake Oral 1080 ml # Voids 2 Current Medications: Meds: Current Medications Al Hydroxide/Mg Hydroxide (Mylanta Plus Xs) 15 ml PRN AFTMEALHC PRN PO DYSPEPSIA; Start 02/06/17 at 22:15 Magnesium Hydroxide (Milk Of Magnesia) 2,400 mg PRN QHS PRN PO CONSTIPATION Last administered on 02/13/17 17:09; Start 02/06/17 at 22:15 Nicotine (Nicoderm Cq 21mg) 1 patch DAILY TD Last administered on 02/11/17 07: 03; Start 02/07/17 at 09:00; Stop 02/11/17 at 09:43; Status DC Aripiprazole (Abilify) 2.5 mg DAILY PO Last administered on 02/08/17 08:06; Start 02/07/17 at 09:00; Stop 02/08/17 at 18:25; Status DC Lamotrigine (LaMICtal) 25 mg BID PO Last administered on 02/12/17 07:15; Start 02/06/17 at 23:00; Stop 02/12/17 at 10:44; Status DC Lorazepam (Ativan) 0.5 mg PRN Q2HR PRN PO ANXIETY / AGITATION Last administered on 02/09/17 02:01; Start 02/06/17 at 22:15 Olanzapine (ZyPREXA ZYDIS) 2.5 mg PRN Q2HR PRN PO ANXIETY / AGITATION; Start at 22:15 Olanzapine (ZyPREXA) 5 mg DAILY PO Last administered on 02/10/17 07:53; Start 02/07/17 at 09:00; Stop 02/10/17 at 18:47; Status DC Trazodone HCl (Desyrel) 50 mg PRN QHS PRN PO INSOMNIA; Start 02/06/17 at 22:15 ; Stop 02/07/17 at 18:20; Status DC Trazodone HCl (Desyrel) 50 mg QHS PO Last administered on 02/06/17 23:43; Start 02/06/17 at 23:00; Stop 02/07/17 at 18:20; Status DC Citalopram Hydrobromide (CeleXA) 20 mg DAILY PO Last administered on 02/10/17 07:54; Start 02/07/17 at 09:00; Stop 02/10/17 at 18:54; Status DC Acetaminophen (Tylenol) 650 mg PRN Q4HRS PRN PO PAIN / TEMP; Start 02/06/17 at 22:15 Baclofen (Lioresal) 20 mg QID PO Last administered on 02/13/17 19:15; Start at 23:00 Bisacodyl (Dulcolax Supp) 10 mg PRN DAILY PRN RC CONSTIPATION; Start 02/06/17 at 22:15 Cetirizine HCl (ZyrTEC) 10 mg DAILY PO Last administered on 02/13/17 09:25; Start 02/07/17 at 09:00 Vitamin D (Vitamin D3) 2,000 unit DAILY PO Last administered on 02/13/17 09:25 ; Start 02/07/17 at 09:00 Ferrous Sulfate (Feosol) 325 mg BIDWMEALS PO Last administered on 02/13/17 17: 09; Start 02/07/17 at 08:00 Furosemide (Lasix) 40 mg DAILY PO Last administered on 02/13/17 09:23; Start at 09:00 Acetaminophen/ Hydrocodone Bitart (Lortab 5/325) 1 tab PRN Q6HRS PRN PO Severe Pain; Start 02/06/17 at 22:15 Levothyroxine Sodium (Synthroid) 50 mcg DAILY07 PO Last administered on 05:28; Start 02/07/17 at 07:00 Lisinopril (Prinivil) 5 mg DAILY PO Last administered on 02/13/17 09:24; Start 02/07/17 at 09:00 Polyethylene Glycol (miraLAX) 17 gm DAILY PO Last administered on 02/13/17 09: 23; Start 02/07/17 at 09:00 Potassium Chloride (Klor-Con) 20 meq DAILY PO Last administered on 02/13/17 09: 24; Start 02/07/17 at 09:00 Senna/Docusate Sodium (Senna Plus) 1 tab BID PO Last administered on 02/13/17 19:15; Start 02/06/17 at 23:00 Sodium Fluoride (Sf 5000 Plus) 1 jaquan QHS DT Last administered on 02/13/17 19:18 ; Start 02/07/17 at 21:00 Tizanidine HCl (Zanaflex) 4 mg QID PO Last administered on 02/13/17 19:15; Start 02/06/17 at 23:00 Tramadol HCl (Ultram) 50 mg PRN Q6HRS PRN PO PAIN; Start 02/06/17 at 22:15 Acyclovir (Zovirax) 800 mg 5XDAY PO Last administered on 02/09/17 19:50; Start 02/07/17 at 06:00; Stop 02/09/17 at 22:01; Status DC Calcium/Vitamin D (Oscal D 500mg/ 200uts) 1 tab BIDWMEALS PO Last administered on 02/13/17 17:09; Start 02/07/17 at 08:00 Non-Formulary Medication 1 cap DAILY PO ; Start 02/07/17 at 09:00; Status UNV Non-Formulary Medication 1 jaquan QHS TP ; Start 02/07/17 at 21:00; Status UNV Oxybutynin Chloride (Ditropan) 5 mg BID PO Last administered on 02/13/17 19:15 ; Start 02/07/17 at 09:00 Non-Formulary Medication 0.5 mg QODAY PO Last administered on 02/12/17 07:28; Start 02/08/17 at 09:00 Loperamide HCl (Imodium) 2 mg PRN QID PRN PO DIARRHEA; Start 02/06/17 at 22:30 Magnesium Oxide (Magnesium Oxide) 400 mg DAILY PO Last administered on 09:23; Start 02/07/17 at 09:00 Non-Formulary Medication 1 jaquan PRN QID PRN TP MUSCLE PAIN; Start 02/06/17 at 22 :15; Status UNV Mupirocin (Bactroban) 1 jaquan BID TP Last administered on 02/08/17 09:47; Start 02/07/17 at 09:00; Stop 02/08/17 at 15:33; Status DC Naproxen (Naprosyn) 250 mg HS PO Last administered on 02/13/17 19:16; Start at 23:00 Diphenhydramine HCl (Benadryl) 25 mg HS PO Last administered on 02/13/17 19:16 ; Start 02/06/17 at 23:00 Cyanocobalamin (Vitamin B-12) 1,000 mcg WEEKLY IM Last administered on 08:15; Start 02/08/17 at 09:00 Trazodone HCl (Desyrel) 100 mg QHS PO Last administered on 02/13/17 19:16; Start 02/07/17 at 21:00 Trazodone HCl (Desyrel) 100 mg PRN QHS PRN PO INSOMNIA Last administered on 01:03; Start 02/07/17 at 18:30 Oxcarbazepine (Trileptal) 300 mg TID PO Last administered on 02/10/17 12:57; Start 02/08/17 at 21:00; Stop 02/10/17 at 18:47; Status DC Olanzapine (ZyPREXA) 5 mg HS PO Last administered on 02/11/17 19:36; Start 02/11 at 21:00; Stop 02/12/17 at 10:44; Status DC Oxcarbazepine (Trileptal) 300 mg BID PO Last administered on 02/13/17 19:16; Start 02/10/17 at 21:00 Nicotine (Nicoderm Cq 14mg) 1 patch DAILY TD Last administered on 02/13/17 09: 28; Start 02/12/17 at 09:00; Stop 02/25/17 at 09:01 Nicotine (Nicoderm Cq 7mg) 1 patch DAILY TD ; Start 02/26/17 at 09:00; Stop at 09:01 Ondansetron HCl (Zofran Odt) 4 mg PRN Q8HRS PRN PO NAUSEA/VOMITING; Start at 12:30 Risperidone (RisperDAL) 0.5 mg HS PO Last administered on 02/13/17t 19:15; Start 02/12/17 at 21:00 Active Scripts Active Reported Vitamin D3 (Cholecalciferol (Vitamin D3)) 1,000 Unit Tablet 2,000 Unit PO DAILY Vicks Vaporub Ointment (Eucalyptus Oil/Menthol/Camphor) 50 Gm Oint...g. 1 Jaquan TP QHS Trazodone Hcl 50 Mg Tablet 50 Mg PO PRN QHS PRN Trazodone Hcl 50 Mg Tablet 50 Mg PO QHS Toviaz (Fesoterodine Fumarate) 4 Mg Tab.er.24h 4 Mg PO DAILY Tizanidine Hcl (Tizanidine HCl) 4 Mg Tablet 4 Mg PO QID Senna S Tablet (Sennosides/Docusate Sodium) 1 Each Tablet 1 Tab PO BID Klor-Con M20 (Potassium Chloride) 20 Meq Tab.er.prt 20 Meq PO DAILY Zyprexa (Olanzapine) 5 Mg Tablet 5 Mg PO DAILY Zyprexa Zydis (Olanzapine) 5 Mg Tab.rapdis 2.5 Mg PO PRN Q2HR PRN MDD 15mg Miralax (Polyethylene Glycol 3350) 119 Gm Powder 17 Gm PO DAILY Magnesium Oxide 500 Mg Tablet 500 Mg PO DAILY Lorazepam 0.5 Mg Tablet 0.5 Mg PO PRN Q2HR PRN MDD 2mg Loperamide (Loperamide Hcl) 2 Mg Tablet 2 Mg PO PRN QID PRN Lisinopril 5 Mg Tablet 5 Mg PO DAILY Levothyroxine Sodium 50 Mcg Tablet 50 Mcg PO DAILY07 Lasix (Furosemide) 40 Mg Tablet 40 Mg PO DAILY Lamotrigine 25 Mg Tablet 25 Mg PO BID Gilenya (Fingolimod Hcl) 0.5 Mg Capsule 0.5 Mg PO QODAY Ferrous Sulfate 325 Mg Tablet 325 Mg PO BID Escitalopram Oxalate 10 Mg Tablet 10 Mg PO DAILY Bisacodyl 10 Mg Supp.rect 10 Mg RC PRN DAILY PRN Cetirizine Hcl 10 Mg Tablet 10 Mg PO DAILY Calcium 600 + Vit D3 400 Tab (Calcium Carbonate/Vitamin D3) 1 Each Tablet 1 Tab PO BID Biofreeze (Menthol) 118 Ml Gel..ml. 1 Jaquan TP PRN QID PRN Bactroban (Mupirocin Calcium) 15 Gm Cream..g. 1 Gm TP BID Baclofen 20 Mg Tablet 20 Mg PO QID Abilify (Aripiprazole) 5 Mg Tablet 2.5 Mg PO DAILY Aleve Pm Caplet (Naproxen Na-Diphenhydramin HCl) 1 Each Tablet 1 Tab PO QHS Acyclovir 800 Mg Tablet 800 Mg PO 5XDAY 7 Days Tylenol (Acetaminophen) 325 Mg Tablet 650 Mg PO PRN Q4HRS PRN MDD 3000mg Tramadol Hcl (Tramadol HCl) 50 Mg Tablet 50 Mg PO PRN Q6HRS PRN Hydrocodone-Apap 5-325 (Hydrocodone Bit/Acetaminophen) 1 Each Tablet 1 Tab PO PRN Q6HRS PRN Denta 5000 Plus (Sodium Fluoride) 51 Gm Cream..g. 1 Jaquan DT QHS Cranberry Plus Vitamin C Sftgl (Cranberry Conc/Ascorbic Acid) 1 Each Capsule 1 Cap PO DAILY Diagnosis: Problems: (1) Behavioral disorder (2) Bipolar 1 disorder, mixed, moderate (3) Anxiety disorder (4) Impulse control disorder KERRY MAYORGA MD Feb 13, 2017 22:38
--- NOTE | 2017-02-13 23:27 | PN ---
DATE: 02/12/2017 This late entry of 02/12/2017 covers elements not covered in my initial note of 02/12/2017. I met with the patient the evening of 02/12/2017. The patient remains somewhat confused, as I questioned her, she felt the year was 2001, she is disorganized. At lunchtime, staff notes that she was gagging herself. She continues to have hand moments like she is flying in the air. REVIEW OF SYSTEMS: Ambulation impaired, in a wheelchair. No CV, , pulmonary, eye system symptoms on review. MENTAL STATUS EXAMINATION: Oriented to herself. Speech coherent, rapid at times. Associations loose. Abstraction fair. Computation impaired. Language function intact. Mood and affect somewhat labile. No inappropriate sexual behavior is noted, however. LABORATORY DATA: Reviewed. IMPRESSION: Unchanged from initial note. PLAN: Consult Dr. Lin, Neurology, given a history of MS and mental status changes to see if there is any correlation with that while we are treating the bipolar disorder. Zyprexa has been changed to Risperdal 0.5 mg at bedtime, may need to increase Trileptal gradually. Reviewed drug interactions risk/benefit ratio, favors no further change at this time. MAN Destin MAYORGA MD DR: INGRIS/buzz JOB#: [id number] / [id number]
[2017-02-14] MEDS: LEVOTHYROXINE 50 MCG TABLET PO SCH (05:55)
[2017-02-14 06:28] VITALS: BP 109/73
[2017-02-14 06:40] LABS: HEMATOCRIT 35.9 % (36.0-47.0); HEMOGLOBIN 12.1 g/dL (12.0-15.5); RED BLOOD COUNT 3.77 x10^6/uL (3.50-5.40); RED CELL DISTRIBUTION WIDTH 14.8 % (11.5-14.5); WHITE BLOOD COUNT 3.9 x10^3/uL (4.0-11.0)
[2017-02-14 06:58] LABS: ALBUMIN 3.7 g/dL (3.4-5.0); ALBUMIN/GLOBULIN RATIO 1.2 (1.0-1.7); CALCIUM 9.8 mg/dL (8.5-10.1); CREATININE 1.1 mg/dL (0.6-1.0); GFR 53.2; POTASSIUM 3.3 mmol/L (3.5-5.1); TOTAL BILIRUBIN 0.5 mg/dL (0.2-1.0); TOTAL PROTEIN 6.8 g/dL (6.4-8.2)
[2017-02-14] MEDS: CETIRIZINE HCL 10 MG TABLET PO SCH (07:40)
[2017-02-14] MEDS: FUROSEMIDE 40 MG TABLET PO SCH (07:40)
[2017-02-14] MEDS: SENNOSIDES/DOCUSATE 8.6/50MG TABLET. PO SCH ×2 (07:40→19:42)
[2017-02-14] MEDS: CALCIUM CARB/VIT D3 500/200 TABLET PO SCH ×2 (07:40→16:43)
[2017-02-14] MEDS: BACLOFEN 20 MG TABLET PO SCH ×4 (07:40→19:42)
[2017-02-14] MEDS: CHOLECALCIFEROL (VITAMIN D3) 1,000 UNIT TABLET PO SCH (07:40)
[2017-02-14] MEDS: POTASSIUM CHLORIDE 20 MEQ TABLET.ER. PO SCH (07:41)
[2017-02-14] MEDS: OXYBUTYNIN CHLORIDE 5 MG TABLET PO SCH ×2 (07:41→19:42)
[2017-02-14] MEDS: tiZANidine 4 MG TABLET. PO SCH ×4 (07:41→19:42)
[2017-02-14] MEDS: POLYETHYLENE GLYCOL 3350 17 GM PACKET. PO SCH (07:42)
[2017-02-14] MEDS: FERROUS SULFATE 325 MG TABLET PO SCH ×2 (07:42→16:43)
[2017-02-14] MEDS: LISINOPRIL 5 MG TABLET. PO SCH (07:42)
[2017-02-14] MEDS: NICOTINE 14MG PATCH. TD SCH (07:43)
[2017-02-14] MEDS: MAGNESIUM OXIDE 400 MG TABLET PO SCH (07:46)
[2017-02-14] MEDS ORDERED: POTASSIUM CHLORIDE 20 MEQ TABLET.ER. PO ONE (09:30)
[2017-02-14 17:24] VITALS: BP 96/62
--- NOTE | 2017-02-14 19:26 | PDOC ---
Exam Mustapha Demential Exam: Mustapha Note: Please also refer to the separate dictated note~for this date of service dictated separately.~Patient seen individually. Discussed the patient with Nursing staff reviewed the chart.~Reviewed interim history and current functioning. Reviewed vital signs,~Labs/ Radiology~and current medications noted below. Continue current treatment with the changes noted in the dictated addendum note Assessment: Vital Signs: Vital Signs Date Time Temp Pulse Resp B/P (MAP) Pulse Ox O2 Delivery O2 Flow Rate FiO2 02/14/17 17:24 97.9 90 18 96/62 (73) 99 Room Air I&O Intake and Output 02/15/17 07:00 Intake Total 1320 ml Balance 1320 ml Intake Oral 1320 ml # Bowel Movements 3 Labs: Laboratory Tests Test 02/14/17 06:33 White Blood Count 3.9 x10^3/uL (4.0-11.0) L Red Blood Count 3.77 x10^6/uL (3.50-5.40) Hemoglobin 12.1 g/dL (12.0-15.5) Hematocrit 35.9 % (36.0-47.0) L Mean Corpuscular Volume 95 fL (79-100) Mean Corpuscular Hemoglobin 32 pg (25-35) Mean Corpuscular Hemoglobin Concent 34 g/dL (31-37) Red Cell Distribution Width 14.8 % (11.5-14.5) H Platelet Count 146 x10^3/uL (140-400) Sodium Level 141 mmol/L (136-145) Potassium Level 3.3 mmol/L (3.5-5.1) L Chloride Level 101 mmol/L (98-107) Carbon Dioxide Level 36 mmol/L (21-32) H Anion Gap 4 (6-14) L Blood Urea Nitrogen 26 mg/dL (7-20) H Creatinine 1.1 mg/dL (0.6-1.0) H Estimated GFR (Cockcroft-Gault) 53.2 BUN/Creatinine Ratio 24 (6-20) H Glucose Level 90 mg/dL (70-99) Calcium Level 9.8 mg/dL (8.5-10.1) Total Bilirubin 0.5 mg/dL (0.2-1.0) Aspartate Amino Transferase (AST) 26 U/L (15-37) Alanine Aminotransferase (ALT) 44 U/L (14-59) Alkaline Phosphatase 89 U/L (46-116) Total Protein 6.8 g/dL (6.4-8.2) Albumin 3.7 g/dL (3.4-5.0) Albumin/Globulin Ratio 1.2 (1.0-1.7) Current Medications: Meds: Current Medications Al Hydroxide/Mg Hydroxide (Mylanta Plus Xs) 15 ml PRN AFTMEALHC PRN PO DYSPEPSIA; Start 02/06/17 at 22:15 Magnesium Hydroxide (Milk Of Magnesia) 2,400 mg PRN QHS PRN PO CONSTIPATION Last administered on 02/13/17 17:09; Start 02/06/17 at 22:15 Nicotine (Nicoderm Cq 21mg) 1 patch DAILY TD Last administered on 02/11/17 07: 03; Start 02/07/17 at 09:00; Stop 02/11/17 at 09:43; Status DC Aripiprazole (Abilify) 2.5 mg DAILY PO Last administered on 02/08/17 08:06; Start 02/07/17 at 09:00; Stop 02/08/17 at 18:25; Status DC Lamotrigine (LaMICtal) 25 mg BID PO Last administered on 02/12/17 07:15; Start 02/06/17 at 23:00; Stop 02/12/17 at 10:44; Status DC Lorazepam (Ativan) 0.5 mg PRN Q2HR PRN PO ANXIETY / AGITATION Last administered on 02/09/17 02:01; Start 02/06/17 at 22:15 Olanzapine (ZyPREXA ZYDIS) 2.5 mg PRN Q2HR PRN PO ANXIETY / AGITATION; Start at 22:15 Olanzapine (ZyPREXA) 5 mg DAILY PO Last administered on 02/10/17 07:53; Start 02/07/17 at 09:00; Stop 02/10/17 at 18:47; Status DC Trazodone HCl (Desyrel) 50 mg PRN QHS PRN PO INSOMNIA; Start 02/06/17 at 22:15 ; Stop 02/07/17 at 18:20; Status DC Trazodone HCl (Desyrel) 50 mg QHS PO Last administered on 02/06/17 23:43; Start 02/06/17 at 23:00; Stop 02/07/17 at 18:20; Status DC Citalopram Hydrobromide (CeleXA) 20 mg DAILY PO Last administered on 02/10/17 07:54; Start 02/07/17 at 09:00; Stop 02/10/17 at 18:54; Status DC Acetaminophen (Tylenol) 650 mg PRN Q4HRS PRN PO PAIN / TEMP; Start 02/06/17 at 22:15 Baclofen (Lioresal) 20 mg QID PO Last administered on 02/14/17 16:43; Start at 23:00 Bisacodyl (Dulcolax Supp) 10 mg PRN DAILY PRN RC CONSTIPATION; Start 02/06/17 at 22:15 Cetirizine HCl (ZyrTEC) 10 mg DAILY PO Last administered on 02/14/17 07:40; Start 02/07/17 at 09:00 Vitamin D (Vitamin D3) 2,000 unit DAILY PO Last administered on 02/14/17 07:40 ; Start 02/07/17 at 09:00 Ferrous Sulfate (Feosol) 325 mg BIDWMEALS PO Last administered on 02/14/17 16: 43; Start 02/07/17 at 08:00 Furosemide (Lasix) 40 mg DAILY PO Last administered on 02/14/17 07:40; Start at 09:00; Stop 02/14/17 at 15:04; Status DC Acetaminophen/ Hydrocodone Bitart (Lortab 5/325) 1 tab PRN Q6HRS PRN PO Severe Pain Last administered on 02/14/17 05:55; Start 02/06/17 at 22:15 Levothyroxine Sodium (Synthroid) 50 mcg DAILY07 PO Last administered on 05:55; Start 02/07/17 at 07:00 Lisinopril (Prinivil) 5 mg DAILY PO Last administered on 02/14/17 07:42; Start 02/07/17 at 09:00 Polyethylene Glycol (miraLAX) 17 gm DAILY PO Last administered on 02/14/17 07: 42; Start 02/07/17 at 09:00 Potassium Chloride (Klor-Con) 20 meq DAILY PO Last administered on 02/14/17 07: 41; Start 02/07/17 at 09:00; Stop 02/14/17 at 08:44; Status DC Senna/Docusate Sodium (Senna Plus) 1 tab BID PO Last administered on 02/14/17 07:40; Start 02/06/17 at 23:00 Sodium Fluoride (Sf 5000 Plus) 1 jaquan QHS DT Last administered on 02/13/17 19:18 ; Start 02/07/17 at 21:00 Tizanidine HCl (Zanaflex) 4 mg QID PO Last administered on 02/14/17 16:43; Start 02/06/17 at 23:00 Tramadol HCl (Ultram) 50 mg PRN Q6HRS PRN PO PAIN; Start 02/06/17 at 22:15 Acyclovir (Zovirax) 800 mg 5XDAY PO Last administered on 02/09/17 19:50; Start 02/07/17 at 06:00; Stop 02/09/17 at 22:01; Status DC Calcium/Vitamin D (Oscal D 500mg/ 200uts) 1 tab BIDWMEALS PO Last administered on 02/14/17 16:43; Start 02/07/17 at 08:00 Non-Formulary Medication 1 cap DAILY PO ; Start 02/07/17 at 09:00; Status UNV Non-Formulary Medication 1 jaquan QHS TP ; Start 02/07/17 at 21:00; Status UNV Oxybutynin Chloride (Ditropan) 5 mg BID PO Last administered on 02/14/17 07:41 ; Start 02/07/17 at 09:00 Non-Formulary Medication 0.5 mg QODAY PO Last administered on 02/14/17 07:46; Start 02/08/17 at 09:00 Loperamide HCl (Imodium) 2 mg PRN QID PRN PO DIARRHEA; Start 02/06/17 at 22:30 Magnesium Oxide (Magnesium Oxide) 400 mg DAILY PO Last administered on 07:46; Start 02/07/17 at 09:00 Non-Formulary Medication 1 jaquan PRN QID PRN TP MUSCLE PAIN; Start 02/06/17 at 22 :15; Status UNV Mupirocin (Bactroban) 1 jaquan BID TP Last administered on 02/08/17 09:47; Start 02/07/17 at 09:00; Stop 02/08/17 at 15:33; Status DC Naproxen (Naprosyn) 250 mg HS PO Last administered on 02/13/17 19:16; Start at 23:00 Diphenhydramine HCl (Benadryl) 25 mg HS PO Last administered on 02/13/17 19:16 ; Start 02/06/17 at 23:00; Stop 02/14/17 at 15:59; Status DC Cyanocobalamin (Vitamin B-12) 1,000 mcg WEEKLY IM Last administered on 08:15; Start 02/08/17 at 09:00 Trazodone HCl (Desyrel) 100 mg QHS PO Last administered on 02/13/17 19:16; Start 02/07/17 at 21:00 Trazodone HCl (Desyrel) 100 mg PRN QHS PRN PO INSOMNIA Last administered on 01:03; Start 02/07/17 at 18:30 Oxcarbazepine (Trileptal) 300 mg TID PO Last administered on 02/10/17 12:57; Start 02/08/17 at 21:00; Stop 02/10/17 at 18:47; Status DC Olanzapine (ZyPREXA) 5 mg HS PO Last administered on 02/11/17 19:36; Start 02/11 at 21:00; Stop 02/12/17 at 10:44; Status DC Oxcarbazepine (Trileptal) 300 mg BID PO Last administered on 02/14/17 07:40; Start 02/10/17 at 21:00 Nicotine (Nicoderm Cq 14mg) 1 patch DAILY TD Last administered on 02/14/17 07: 43; Start 02/12/17 at 09:00; Stop 02/25/17 at 09:01 Nicotine (Nicoderm Cq 7mg) 1 patch DAILY TD ; Start 02/26/17 at 09:00; Stop at 09:01 Ondansetron HCl (Zofran Odt) 4 mg PRN Q8HRS PRN PO NAUSEA/VOMITING; Start at 12:30 Risperidone (RisperDAL) 0.5 mg HS PO Last administered on 02/13/17 19:15; Start 02/12/17 at 21:00 Potassium Chloride (Klor-Con) 40 meq DAILY PO ; Start 02/15/17 at 09:00 Potassium Chloride (Klor-Con) 20 meq 1X ONCE PO Last administered on 02/14/17 10:11; Start 02/14/17 at 09:30; Stop 02/14/17 at 09:31; Status DC Furosemide (Lasix) 20 mg DAILY PO ; Start 02/15/17 at 09:00 Active Scripts Active Reported Vitamin D3 (Cholecalciferol (Vitamin D3)) 1,000 Unit Tablet 2,000 Unit PO DAILY Vicks Vaporub Ointment (Eucalyptus Oil/Menthol/Camphor) 50 Gm Oint...g. 1 Jaquan TP QHS Trazodone Hcl 50 Mg Tablet 50 Mg PO PRN QHS PRN Trazodone Hcl 50 Mg Tablet 50 Mg PO QHS Toviaz (Fesoterodine Fumarate) 4 Mg Tab.er.24h 4 Mg PO DAILY Tizanidine Hcl (Tizanidine HCl) 4 Mg Tablet 4 Mg PO QID Senna S Tablet (Sennosides/Docusate Sodium) 1 Each Tablet 1 Tab PO BID Klor-Con M20 (Potassium Chloride) 20 Meq Tab.er.prt 20 Meq PO DAILY Zyprexa (Olanzapine) 5 Mg Tablet 5 Mg PO DAILY Zyprexa Zydis (Olanzapine) 5 Mg Tab.rapdis 2.5 Mg PO PRN Q2HR PRN MDD 15mg Miralax (Polyethylene Glycol 3350) 119 Gm Powder 17 Gm PO DAILY Magnesium Oxide 500 Mg Tablet 500 Mg PO DAILY Lorazepam 0.5 Mg Tablet 0.5 Mg PO PRN Q2HR PRN MDD 2mg Loperamide (Loperamide Hcl) 2 Mg Tablet 2 Mg PO PRN QID PRN Lisinopril 5 Mg Tablet 5 Mg PO DAILY Levothyroxine Sodium 50 Mcg Tablet 50 Mcg PO DAILY07 Lasix (Furosemide) 40 Mg Tablet 40 Mg PO DAILY Lamotrigine 25 Mg Tablet 25 Mg PO BID Gilenya (Fingolimod Hcl) 0.5 Mg Capsule 0.5 Mg PO QODAY Ferrous Sulfate 325 Mg Tablet 325 Mg PO BID Escitalopram Oxalate 10 Mg Tablet 10 Mg PO DAILY Bisacodyl 10 Mg Supp.rect 10 Mg RC PRN DAILY PRN Cetirizine Hcl 10 Mg Tablet 10 Mg PO DAILY Calcium 600 + Vit D3 400 Tab (Calcium Carbonate/Vitamin D3) 1 Each Tablet 1 Tab PO BID Biofreeze (Menthol) 118 Ml Gel..ml. 1 Jaquan TP PRN QID PRN Bactroban (Mupirocin Calcium) 15 Gm Cream..g. 1 Gm TP BID Baclofen 20 Mg Tablet 20 Mg PO QID Abilify (Aripiprazole) 5 Mg Tablet 2.5 Mg PO DAILY Aleve Pm Caplet (Naproxen Na-Diphenhydramin HCl) 1 Each Tablet 1 Tab PO QHS Acyclovir 800 Mg Tablet 800 Mg PO 5XDAY 7 Days Tylenol (Acetaminophen) 325 Mg Tablet 650 Mg PO PRN Q4HRS PRN MDD 3000mg Tramadol Hcl (Tramadol HCl) 50 Mg Tablet 50 Mg PO PRN Q6HRS PRN Hydrocodone-Apap 5-325 (Hydrocodone Bit/Acetaminophen) 1 Each Tablet 1 Tab PO PRN Q6HRS PRN Denta 5000 Plus (Sodium Fluoride) 51 Gm Cream..g. 1 Jaquan DT QHS Cranberry Plus Vitamin C Sftgl (Cranberry Conc/Ascorbic Acid) 1 Each Capsule 1 Cap PO DAILY Diagnosis: Problems: (1) Behavioral disorder (2) Bipolar 1 disorder, mixed, moderate (3) Anxiety disorder (4) Impulse control disorder KERRY MAYORGA MD Feb 14, 2017 19:26
[2017-02-14] MEDS: traZODone 100 MG TABLET. PO SCH (19:42)
[2017-02-14] MEDS: risperiDONE 0.5 MG TABLET. PO SCH (19:42)
[2017-02-14] MEDS: NAPROXEN 250 MG TABLET PO SCH (19:43)
[2017-02-14] MEDS: SODIUM FLUORIDE DT SCH (19:43)
[2017-02-14] MEDS: [UNRECOGNIZED DRUG - OTHER] DT SCH (19:43)
--- NOTE | 2017-02-15 01:16 | PN ---
DATE: 02/13/2017 PSYCHIATRIC PROGRESS NOTE This is a late entry for 02/13/2017, covers elements not covered in my initial note of 02/13/2017. SUBJECTIVE: The patient was seen individually the evening of 02/13/2017. Overall, per nursing report, the patient slept 5-3/4 hours. Last BM was on 02/07/2017, she received milk of magnesia. She has been less labile, little more organized and this was evident even as I met with her the evening of 02/13/2017. She is still somewhat manic, making the arm gestures, but much less than before. REVIEW OF SYSTEMS: Ambulation impaired. No CV, , pulmonary, eye, ENT system symptoms on review. MENTAL STATUS EXAM: Oriented to herself and situation. Speech coherent, less pressured. Abstraction fair, computation impaired, language function intact. Attention span short. Intellect average. Insight improving. Mood and affect showing improvement. LABORATORY DATA: Reviewed. IMPRESSION: Unchanged from initial note. PLAN: Continue Risperdal 0.[address]time in [address] of Zyprexa. Continue Trileptal 300 mg b.i.d., trazodone 100 mg at bedtime, may repeat x 1, Zyprexa, Ativan p.r.n., Benadryl is 25 mg at bedtime and we will stop it starting 02/14/2017, and make further adjustments as clinically indicated. MAN Destin MAYORGA MD DR: INGRIS/buzz JOB#: [id number] / [id number]
[2017-02-15 05:55] VITALS: BP 108/72
[2017-02-15] MEDS: LEVOTHYROXINE 50 MCG TABLET PO SCH (06:21)
[2017-02-15] MEDS: LISINOPRIL 5 MG TABLET. PO SCH (08:47)
[2017-02-15] MEDS: OXYBUTYNIN CHLORIDE 5 MG TABLET PO SCH ×2 (08:47→19:48)
[2017-02-15] MEDS: CALCIUM CARB/VIT D3 500/200 TABLET PO SCH ×2 (08:47→16:24)
[2017-02-15] MEDS: SENNOSIDES/DOCUSATE 8.6/50MG TABLET. PO SCH ×2 (08:47→19:47)
[2017-02-15] MEDS: FERROUS SULFATE 325 MG TABLET PO SCH ×2 (08:47→16:22)
[2017-02-15] MEDS: BACLOFEN 20 MG TABLET PO SCH ×4 (08:48→19:48)
[2017-02-15] MEDS: POLYETHYLENE GLYCOL 3350 17 GM PACKET. PO SCH (08:48)
[2017-02-15] MEDS: CHOLECALCIFEROL (VITAMIN D3) 1,000 UNIT TABLET PO SCH (08:48)
[2017-02-15] MEDS: tiZANidine 4 MG TABLET. PO SCH ×4 (08:48→19:47)
[2017-02-15] MEDS: CETIRIZINE HCL 10 MG TABLET PO SCH (08:48)
[2017-02-15] MEDS: NICOTINE 14MG PATCH. TD SCH (08:50)
[2017-02-15] MEDS: CYANOCOBALAMIN (VITAMIN B-12) 1,000 MCG/ML VIAL IM SCH (08:55)
[2017-02-15] MEDS: POTASSIUM CHLORIDE 20 MEQ TABLET.ER. PO SCH (08:58)
[2017-02-15] MEDS: MAGNESIUM OXIDE 400 MG TABLET PO SCH (09:01)
[2017-02-15] MEDS: FUROSEMIDE 20 MG TABLET PO SCH (09:01)
[2017-02-15 13:40] VITALS: BP 103/67
[2017-02-15 16:16] VITALS: BP 102/62
[2017-02-15] MEDS: traZODone 100 MG TABLET. PO SCH (19:48)
[2017-02-15] MEDS: NAPROXEN 250 MG TABLET PO SCH (19:48)
[2017-02-15] MEDS: risperiDONE 0.5 MG TABLET. PO SCH (19:48)
[2017-02-15] MEDS: [UNRECOGNIZED DRUG - OTHER] DT SCH (19:49)
[2017-02-15] MEDS: SODIUM FLUORIDE DT SCH (19:49)
--- NOTE | 2017-02-15 19:49 | PDOC ---
Exam Mustapha Demential Exam: Mustapha Note: Please also refer to the separate dictated note~for this date of service dictated separately.~Patient seen individually. Discussed the patient with Nursing staff reviewed the chart.~Reviewed interim history and current functioning. Reviewed vital signs,~Labs/ Radiology~and current medications noted below. Continue current treatment with the changes noted in the dictated addendum note Assessment: Vital Signs: Vital Signs Date Time Temp Pulse Resp B/P (MAP) Pulse Ox O2 Delivery O2 Flow Rate FiO2 02/15/17 16:16 97.8 93 18 102/62 (75) 100 02/15/17 13:40 Room Air I&O Intake and Output 02/16/17 07:00 Intake Total 1200 ml Balance 1200 ml Intake Oral 1200 ml # Bowel Movements 1 Current Medications: Meds: Current Medications Al Hydroxide/Mg Hydroxide (Mylanta Plus Xs) 15 ml PRN AFTMEALHC PRN PO DYSPEPSIA; Start 02/06/17 at 22:15 Magnesium Hydroxide (Milk Of Magnesia) 2,400 mg PRN QHS PRN PO CONSTIPATION Last administered on 02/13/17 17:09; Start 02/06/17 at 22:15 Nicotine (Nicoderm Cq 21mg) 1 patch DAILY TD Last administered on 02/11/17 07: 03; Start 02/07/17 at 09:00; Stop 02/11/17 at 09:43; Status DC Aripiprazole (Abilify) 2.5 mg DAILY PO Last administered on 02/08/17 08:06; Start 02/07/17 at 09:00; Stop 02/08/17 at 18:25; Status DC Lamotrigine (LaMICtal) 25 mg BID PO Last administered on 02/12/17 07:15; Start 02/06/17 at 23:00; Stop 02/12/17 at 10:44; Status DC Lorazepam (Ativan) 0.5 mg PRN Q2HR PRN PO ANXIETY / AGITATION Last administered on 02/09/17 02:01; Start 02/06/17 at 22:15 Olanzapine (ZyPREXA ZYDIS) 2.5 mg PRN Q2HR PRN PO ANXIETY / AGITATION; Start at 22:15 Olanzapine (ZyPREXA) 5 mg DAILY PO Last administered on 02/10/17 07:53; Start 02/07/17 at 09:00; Stop 02/10/17 at 18:47; Status DC Trazodone HCl (Desyrel) 50 mg PRN QHS PRN PO INSOMNIA; Start 02/06/17 at 22:15 ; Stop 02/07/17 at 18:20; Status DC Trazodone HCl (Desyrel) 50 mg QHS PO Last administered on 02/06/17 23:43; Start 02/06/17 at 23:00; Stop 02/07/17 at 18:20; Status DC Citalopram Hydrobromide (CeleXA) 20 mg DAILY PO Last administered on 02/10/17 07:54; Start 02/07/17 at 09:00; Stop 02/10/17 at 18:54; Status DC Acetaminophen (Tylenol) 650 mg PRN Q4HRS PRN PO PAIN / TEMP; Start 02/06/17 at 22:15 Baclofen (Lioresal) 20 mg QID PO Last administered on 02/15/17 16:23; Start at 23:00 Bisacodyl (Dulcolax Supp) 10 mg PRN DAILY PRN RC CONSTIPATION; Start 02/06/17 at 22:15 Cetirizine HCl (ZyrTEC) 10 mg DAILY PO Last administered on 02/15/17 08:48; Start 02/07/17 at 09:00 Vitamin D (Vitamin D3) 2,000 unit DAILY PO Last administered on 02/15/17 08:48 ; Start 02/07/17 at 09:00 Ferrous Sulfate (Feosol) 325 mg BIDWMEALS PO Last administered on 02/15/17 16: 22; Start 02/07/17 at 08:00 Furosemide (Lasix) 40 mg DAILY PO Last administered on 02/14/17 07:40; Start at 09:00; Stop 02/14/17 at 15:04; Status DC Acetaminophen/ Hydrocodone Bitart (Lortab 5/325) 1 tab PRN Q6HRS PRN PO Severe Pain Last administered on 02/14/17 05:55; Start 02/06/17 at 22:15 Levothyroxine Sodium (Synthroid) 50 mcg DAILY07 PO Last administered on 06:21; Start 02/07/17 at 07:00 Lisinopril (Prinivil) 5 mg DAILY PO Last administered on 02/15/17 08:47; Start 02/07/17 at 09:00 Polyethylene Glycol (miraLAX) 17 gm DAILY PO Last administered on 02/15/17 08: 48; Start 02/07/17 at 09:00 Potassium Chloride (Klor-Con) 20 meq DAILY PO Last administered on 02/14/17 07: 41; Start 02/07/17 at 09:00; Stop 02/14/17 at 08:44; Status DC Senna/Docusate Sodium (Senna Plus) 1 tab BID PO Last administered on 02/15/17 08:47; Start 02/06/17 at 23:00 Sodium Fluoride (Sf 5000 Plus) 1 jaquan QHS DT Last administered on 02/14/17 19:43 ; Start 02/07/17 at 21:00 Tizanidine HCl (Zanaflex) 4 mg QID PO Last administered on 02/15/17 16:22; Start 02/06/17 at 23:00 Tramadol HCl (Ultram) 50 mg PRN Q6HRS PRN PO PAIN; Start 02/06/17 at 22:15 Acyclovir (Zovirax) 800 mg 5XDAY PO Last administered on 02/09/17 19:50; Start 02/07/17 at 06:00; Stop 02/09/17 at 22:01; Status DC Calcium/Vitamin D (Oscal D 500mg/ 200uts) 1 tab BIDWMEALS PO Last administered on 02/15/17 16:24; Start 02/07/17 at 08:00 Non-Formulary Medication 1 cap DAILY PO ; Start 02/07/17 at 09:00; Status UNV Non-Formulary Medication 1 jaquan QHS TP ; Start 02/07/17 at 21:00; Status UNV Oxybutynin Chloride (Ditropan) 5 mg BID PO Last administered on 02/15/17 08:47 ; Start 02/07/17 at 09:00 Non-Formulary Medication 0.5 mg QODAY PO Last administered on 02/14/17 07:46; Start 02/08/17 at 09:00 Loperamide HCl (Imodium) 2 mg PRN QID PRN PO DIARRHEA; Start 02/06/17 at 22:30 Magnesium Oxide (Magnesium Oxide) 400 mg DAILY PO Last administered on 09:01; Start 02/07/17 at 09:00 Non-Formulary Medication 1 jaquan PRN QID PRN TP MUSCLE PAIN; Start 02/06/17 at 22 :15; Status UNV Mupirocin (Bactroban) 1 jaquan BID TP Last administered on 02/08/17 09:47; Start 02/07/17 at 09:00; Stop 02/08/17 at 15:33; Status DC Naproxen (Naprosyn) 250 mg HS PO Last administered on 02/14/17 19:43; Start at 23:00 Diphenhydramine HCl (Benadryl) 25 mg HS PO Last administered on 02/13/17 19:16 ; Start 02/06/17 at 23:00; Stop 02/14/17 at 15:59; Status DC Cyanocobalamin (Vitamin B-12) 1,000 mcg WEEKLY IM Last administered on 08:55; Start 02/08/17 at 09:00 Trazodone HCl (Desyrel) 100 mg QHS PO Last administered on 02/14/17 19:42; Start 02/07/17 at 21:00 Trazodone HCl (Desyrel) 100 mg PRN QHS PRN PO INSOMNIA Last administered on 01:03; Start 02/07/17 at 18:30 Oxcarbazepine (Trileptal) 300 mg TID PO Last administered on 02/10/17 12:57; Start 02/08/17 at 21:00; Stop 02/10/17 at 18:47; Status DC Olanzapine (ZyPREXA) 5 mg HS PO Last administered on 02/11/17 19:36; Start 02/11 at 21:00; Stop 02/12/17 at 10:44; Status DC Oxcarbazepine (Trileptal) 300 mg BID PO Last administered on 02/15/17 08:48; Start 02/10/17 at 21:00; Stop 02/15/17 at 18:31; Status DC Nicotine (Nicoderm Cq 14mg) 1 patch DAILY TD Last administered on 02/15/17 08: 50; Start 02/12/17 at 09:00; Stop 02/25/17 at 09:01 Nicotine (Nicoderm Cq 7mg) 1 patch DAILY TD ; Start 02/26/17 at 09:00; Stop at 09:01 Ondansetron HCl (Zofran Odt) 4 mg PRN Q8HRS PRN PO NAUSEA/VOMITING; Start at 12:30 Risperidone (RisperDAL) 0.5 mg HS PO Last administered on 02/14/17 19:42; Start 02/12/17 at 21:00 Potassium Chloride (Klor-Con) 40 meq DAILY PO Last administered on 02/15/17 08: 58; Start 02/15/17 at 09:00 Potassium Chloride (Klor-Con) 20 meq 1X ONCE PO Last administered on 02/14/17 10:11; Start 02/14/17 at 09:30; Stop 02/14/17 at 09:31; Status DC Furosemide (Lasix) 20 mg DAILY PO Last administered on 02/15/17 09:01; Start at 09:00 Oxcarbazepine (Trileptal) 300 mg TID PO ; Start 02/15/17 at 21:00 Active Scripts Active Reported Vitamin D3 (Cholecalciferol (Vitamin D3)) 1,000 Unit Tablet 2,000 Unit PO DAILY Vicks Vaporub Ointment (Eucalyptus Oil/Menthol/Camphor) 50 Gm Oint...g. 1 Jaquan TP QHS Trazodone Hcl 50 Mg Tablet 50 Mg PO PRN QHS PRN Trazodone Hcl 50 Mg Tablet 50 Mg PO QHS Toviaz (Fesoterodine Fumarate) 4 Mg Tab.er.24h 4 Mg PO DAILY Tizanidine Hcl (Tizanidine HCl) 4 Mg Tablet 4 Mg PO QID Senna S Tablet (Sennosides/Docusate Sodium) 1 Each Tablet 1 Tab PO BID Klor-Con M20 (Potassium Chloride) 20 Meq Tab.er.prt 20 Meq PO DAILY Zyprexa (Olanzapine) 5 Mg Tablet 5 Mg PO DAILY Zyprexa Zydis (Olanzapine) 5 Mg Tab.rapdis 2.5 Mg PO PRN Q2HR PRN MDD 15mg Miralax (Polyethylene Glycol 3350) 119 Gm Powder 17 Gm PO DAILY Magnesium Oxide 500 Mg Tablet 500 Mg PO DAILY Lorazepam 0.5 Mg Tablet 0.5 Mg PO PRN Q2HR PRN MDD 2mg Loperamide (Loperamide Hcl) 2 Mg Tablet 2 Mg PO PRN QID PRN Lisinopril 5 Mg Tablet 5 Mg PO DAILY Levothyroxine Sodium 50 Mcg Tablet 50 Mcg PO DAILY07 Lasix (Furosemide) 40 Mg Tablet 40 Mg PO DAILY Lamotrigine 25 Mg Tablet 25 Mg PO BID Gilenya (Fingolimod Hcl) 0.5 Mg Capsule 0.5 Mg PO QODAY Ferrous Sulfate 325 Mg Tablet 325 Mg PO BID Escitalopram Oxalate 10 Mg Tablet 10 Mg PO DAILY Bisacodyl 10 Mg Supp.rect 10 Mg RC PRN DAILY PRN Cetirizine Hcl 10 Mg Tablet 10 Mg PO DAILY Calcium 600 + Vit D3 400 Tab (Calcium Carbonate/Vitamin D3) 1 Each Tablet 1 Tab PO BID Biofreeze (Menthol) 118 Ml Gel..ml. 1 Jaquan TP PRN QID PRN Bactroban (Mupirocin Calcium) 15 Gm Cream..g. 1 Gm TP BID Baclofen 20 Mg Tablet 20 Mg PO QID Abilify (Aripiprazole) 5 Mg Tablet 2.5 Mg PO DAILY Aleve Pm Caplet (Naproxen Na-Diphenhydramin HCl) 1 Each Tablet 1 Tab PO QHS Acyclovir 800 Mg Tablet 800 Mg PO 5XDAY 7 Days Tylenol (Acetaminophen) 325 Mg Tablet 650 Mg PO PRN Q4HRS PRN MDD 3000mg Tramadol Hcl (Tramadol HCl) 50 Mg Tablet 50 Mg PO PRN Q6HRS PRN Hydrocodone-Apap 5-325 (Hydrocodone Bit/Acetaminophen) 1 Each Tablet 1 Tab PO PRN Q6HRS PRN Denta 5000 Plus (Sodium Fluoride) 51 Gm Cream..g. 1 Jaquan DT QHS Cranberry Plus Vitamin C Sftgl (Cranberry Conc/Ascorbic Acid) 1 Each Capsule 1 Cap PO DAILY Diagnosis: Problems: (1) Behavioral disorder (2) Bipolar 1 disorder, mixed, moderate (3) Anxiety disorder (4) Impulse control disorder KERRY MAYORGA MD Feb 15, 2017 19:49
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
[2017-02-16 05:48] VITALS: BP 117/68
[2017-02-16] MEDS: LEVOTHYROXINE 50 MCG TABLET PO SCH (05:58)
[2017-02-16] MEDS: FUROSEMIDE 20 MG TABLET PO SCH (08:04)
[2017-02-16] MEDS: SENNOSIDES/DOCUSATE 8.6/50MG TABLET. PO SCH ×2 (08:04→19:32)
[2017-02-16] MEDS: CHOLECALCIFEROL (VITAMIN D3) 1,000 UNIT TABLET PO SCH (08:05)
[2017-02-16] MEDS: OXYBUTYNIN CHLORIDE 5 MG TABLET PO SCH ×2 (08:05→19:32)
[2017-02-16] MEDS: MAGNESIUM OXIDE 400 MG TABLET PO SCH (08:05)
[2017-02-16] MEDS: tiZANidine 4 MG TABLET. PO SCH ×4 (08:05→19:32)
[2017-02-16] MEDS: LISINOPRIL 5 MG TABLET. PO SCH (08:05)
[2017-02-16] MEDS: CETIRIZINE HCL 10 MG TABLET PO SCH (08:05)
[2017-02-16] MEDS: POTASSIUM CHLORIDE 20 MEQ TABLET.ER. PO SCH (08:06)
[2017-02-16] MEDS: BACLOFEN 20 MG TABLET PO SCH ×4 (08:06→19:32)
[2017-02-16] MEDS: FERROUS SULFATE 325 MG TABLET PO SCH ×2 (08:06→16:26)
[2017-02-16] MEDS: CALCIUM CARB/VIT D3 500/200 TABLET PO SCH ×2 (08:07→16:25)
[2017-02-16] MEDS: NICOTINE 14MG PATCH. TD SCH (08:08)
[2017-02-16] MEDS: POLYETHYLENE GLYCOL 3350 17 GM PACKET. PO SCH (08:08)
[2017-02-16 15:54] VITALS: BP 99/65
[2017-02-16] MEDS: risperiDONE 0.5 MG TABLET. PO SCH (19:32)
[2017-02-16] MEDS: NAPROXEN 250 MG TABLET PO SCH (19:32)
[2017-02-16] MEDS: traZODone 100 MG TABLET. PO SCH (19:32)
--- NOTE | 2017-02-16 19:32 | PDOC ---
Exam Mustapha Demential Exam: Mustapha Note: Please also refer to the separate dictated note~for this date of service dictated separately.~Patient seen individually. Discussed the patient with Nursing staff reviewed the chart.~Reviewed interim history and current functioning. Reviewed vital signs,~Labs/ Radiology~and current medications noted below. Continue current treatment with the changes noted in the dictated addendum note Assessment: Vital Signs: Vital Signs Date Time Temp Pulse Resp B/P (MAP) Pulse Ox O2 Delivery O2 Flow Rate FiO2 02/16/17 15:54 97.9 103 18 99/65 (76) 96 02/15/17 13:40 Room Air I&O Intake and Output 02/17/17 07:00 Intake Total 960 ml Balance 960 ml Intake Oral 960 ml Current Medications: Meds: Current Medications Al Hydroxide/Mg Hydroxide (Mylanta Plus Xs) 15 ml PRN AFTMEALHC PRN PO DYSPEPSIA; Start 02/06/17 at 22:15 Magnesium Hydroxide (Milk Of Magnesia) 2,400 mg PRN QHS PRN PO CONSTIPATION Last administered on 02/13/17 17:09; Start 02/06/17 at 22:15 Nicotine (Nicoderm Cq 21mg) 1 patch DAILY TD Last administered on 02/11/17 07: 03; Start 02/07/17 at 09:00; Stop 02/11/17 at 09:43; Status DC Aripiprazole (Abilify) 2.5 mg DAILY PO Last administered on 02/08/17 08:06; Start 02/07/17 at 09:00; Stop 02/08/17 at 18:25; Status DC Lamotrigine (LaMICtal) 25 mg BID PO Last administered on 02/12/17 07:15; Start 02/06/17 at 23:00; Stop 02/12/17 at 10:44; Status DC Lorazepam (Ativan) 0.5 mg PRN Q2HR PRN PO ANXIETY / AGITATION Last administered on 02/09/17 02:01; Start 02/06/17 at 22:15 Olanzapine (ZyPREXA ZYDIS) 2.5 mg PRN Q2HR PRN PO ANXIETY / AGITATION; Start at 22:15 Olanzapine (ZyPREXA) 5 mg DAILY PO Last administered on 02/10/17 07:53; Start 02/07/17 at 09:00; Stop 02/10/17 at 18:47; Status DC Trazodone HCl (Desyrel) 50 mg PRN QHS PRN PO INSOMNIA; Start 02/06/17 at 22:15 ; Stop 02/07/17 at 18:20; Status DC Trazodone HCl (Desyrel) 50 mg QHS PO Last administered on 02/06/17 23:43; Start 02/06/17 at 23:00; Stop 02/07/17 at 18:20; Status DC Citalopram Hydrobromide (CeleXA) 20 mg DAILY PO Last administered on 02/10/17 07:54; Start 02/07/17 at 09:00; Stop 02/10/17 at 18:54; Status DC Acetaminophen (Tylenol) 650 mg PRN Q4HRS PRN PO PAIN / TEMP; Start 02/06/17 at 22:15 Baclofen (Lioresal) 20 mg QID PO Last administered on 02/16/17 16:26; Start at 23:00 Bisacodyl (Dulcolax Supp) 10 mg PRN DAILY PRN RC CONSTIPATION; Start 02/06/17 at 22:15 Cetirizine HCl (ZyrTEC) 10 mg DAILY PO Last administered on 02/16/17 08:05; Start 02/07/17 at 09:00 Vitamin D (Vitamin D3) 2,000 unit DAILY PO Last administered on 02/16/17 08:05 ; Start 02/07/17 at 09:00 Ferrous Sulfate (Feosol) 325 mg BIDWMEALS PO Last administered on 02/16/17 16: 26; Start 02/07/17 at 08:00 Furosemide (Lasix) 40 mg DAILY PO Last administered on 02/14/17 07:40; Start at 09:00; Stop 02/14/17 at 15:04; Status DC Acetaminophen/ Hydrocodone Bitart (Lortab 5/325) 1 tab PRN Q6HRS PRN PO Severe Pain Last administered on 02/14/17 05:55; Start 02/06/17 at 22:15 Levothyroxine Sodium (Synthroid) 50 mcg DAILY07 PO Last administered on 05:58; Start 02/07/17 at 07:00 Lisinopril (Prinivil) 5 mg DAILY PO Last administered on 02/16/17 08:05; Start 02/07/17 at 09:00 Polyethylene Glycol (miraLAX) 17 gm DAILY PO Last administered on 02/16/17 08: 08; Start 02/07/17 at 09:00 Potassium Chloride (Klor-Con) 20 meq DAILY PO Last administered on 02/14/17 07: 41; Start 02/07/17 at 09:00; Stop 02/14/17 at 08:44; Status DC Senna/Docusate Sodium (Senna Plus) 1 tab BID PO Last administered on 02/16/17 08:04; Start 02/06/17 at 23:00 Sodium Fluoride (Sf 5000 Plus) 1 jaquan QHS DT Last administered on 02/15/17 19:49 ; Start 02/07/17 at 21:00 Tizanidine HCl (Zanaflex) 4 mg QID PO Last administered on 02/16/17 16:25; Start 02/06/17 at 23:00 Tramadol HCl (Ultram) 50 mg PRN Q6HRS PRN PO PAIN; Start 02/06/17 at 22:15 Acyclovir (Zovirax) 800 mg 5XDAY PO Last administered on 02/09/17 19:50; Start 02/07/17 at 06:00; Stop 02/09/17 at 22:01; Status DC Calcium/Vitamin D (Oscal D 500mg/ 200uts) 1 tab BIDWMEALS PO Last administered on 02/16/17 16:25; Start 02/07/17 at 08:00 Non-Formulary Medication 1 cap DAILY PO ; Start 02/07/17 at 09:00; Status UNV Non-Formulary Medication 1 jaquan QHS TP ; Start 02/07/17 at 21:00; Status UNV Oxybutynin Chloride (Ditropan) 5 mg BID PO Last administered on 02/16/17 08:05 ; Start 02/07/17 at 09:00 Non-Formulary Medication 0.5 mg QODAY PO Last administered on 02/16/17 09:00; Start 02/08/17 at 09:00 Loperamide HCl (Imodium) 2 mg PRN QID PRN PO DIARRHEA; Start 02/06/17 at 22:30 Magnesium Oxide (Magnesium Oxide) 400 mg DAILY PO Last administered on 08:05; Start 02/07/17 at 09:00 Non-Formulary Medication 1 jaquan PRN QID PRN TP MUSCLE PAIN; Start 02/06/17 at 22 :15; Status UNV Mupirocin (Bactroban) 1 jaquan BID TP Last administered on 02/08/17 09:47; Start 02/07/17 at 09:00; Stop 02/08/17 at 15:33; Status DC Naproxen (Naprosyn) 250 mg HS PO Last administered on 02/15/17 19:48; Start at 23:00 Diphenhydramine HCl (Benadryl) 25 mg HS PO Last administered on 02/13/17 19:16 ; Start 02/06/17 at 23:00; Stop 02/14/17 at 15:59; Status DC Cyanocobalamin (Vitamin B-12) 1,000 mcg WEEKLY IM Last administered on 08:55; Start 02/08/17 at 09:00 Trazodone HCl (Desyrel) 100 mg QHS PO Last administered on 02/15/17 19:48; Start 02/07/17 at 21:00 Trazodone HCl (Desyrel) 100 mg PRN QHS PRN PO INSOMNIA Last administered on 01:03; Start 02/07/17 at 18:30 Oxcarbazepine (Trileptal) 300 mg TID PO Last administered on 02/10/17 12:57; Start 02/08/17 at 21:00; Stop 02/10/17 at 18:47; Status DC Olanzapine (ZyPREXA) 5 mg HS PO Last administered on 02/11/17 19:36; Start 02/11 at 21:00; Stop 02/12/17 at 10:44; Status DC Oxcarbazepine (Trileptal) 300 mg BID PO Last administered on 02/15/17 08:48; Start 02/10/17 at 21:00; Stop 02/15/17 at 18:31; Status DC Nicotine (Nicoderm Cq 14mg) 1 patch DAILY TD Last administered on 02/16/17 08: 08; Start 02/12/17 at 09:00; Stop 02/25/17 at 09:01 Nicotine (Nicoderm Cq 7mg) 1 patch DAILY TD ; Start 02/26/17 at 09:00; Stop at 09:01 Ondansetron HCl (Zofran Odt) 4 mg PRN Q8HRS PRN PO NAUSEA/VOMITING Last administered on 02/16/17 05:58; Start 02/11/17 at 12:30 Risperidone (RisperDAL) 0.5 mg HS PO Last administered on 02/15/17 19:48; Start 02/12/17 at 21:00 Potassium Chloride (Klor-Con) 40 meq DAILY PO Last administered on 02/16/17 08: 06; Start 02/15/17 at 09:00 Potassium Chloride (Klor-Con) 20 meq 1X ONCE PO Last administered on 02/14/17 10:11; Start 02/14/17 at 09:30; Stop 02/14/17 at 09:31; Status DC Furosemide (Lasix) 20 mg DAILY PO Last administered on 02/16/17 08:04; Start at 09:00 Oxcarbazepine (Trileptal) 300 mg TID PO Last administered on 02/16/17 13:24; Start 02/15/17 at 21:00 Temazepam (Restoril) 15 mg PRN QHS PRN PO INSOMNIA; Start 02/16/17 at 10:45 Active Scripts Active Reported Vitamin D3 (Cholecalciferol (Vitamin D3)) 1,000 Unit Tablet 2,000 Unit PO DAILY Vicks Vaporub Ointment (Eucalyptus Oil/Menthol/Camphor) 50 Gm Oint...g. 1 Jaquan TP QHS Trazodone Hcl 50 Mg Tablet 50 Mg PO PRN QHS PRN Trazodone Hcl 50 Mg Tablet 50 Mg PO QHS Toviaz (Fesoterodine Fumarate) 4 Mg Tab.er.24h 4 Mg PO DAILY Tizanidine Hcl (Tizanidine HCl) 4 Mg Tablet 4 Mg PO QID Senna S Tablet (Sennosides/Docusate Sodium) 1 Each Tablet 1 Tab PO BID Klor-Con M20 (Potassium Chloride) 20 Meq Tab.er.prt 20 Meq PO DAILY Zyprexa (Olanzapine) 5 Mg Tablet 5 Mg PO DAILY Zyprexa Zydis (Olanzapine) 5 Mg Tab.rapdis 2.5 Mg PO PRN Q2HR PRN MDD 15mg Miralax (Polyethylene Glycol 3350) 119 Gm Powder 17 Gm PO DAILY Magnesium Oxide 500 Mg Tablet 500 Mg PO DAILY Lorazepam 0.5 Mg Tablet 0.5 Mg PO PRN Q2HR PRN MDD 2mg Loperamide (Loperamide Hcl) 2 Mg Tablet 2 Mg PO PRN QID PRN Lisinopril 5 Mg Tablet 5 Mg PO DAILY Levothyroxine Sodium 50 Mcg Tablet 50 Mcg PO DAILY07 Lasix (Furosemide) 40 Mg Tablet 40 Mg PO DAILY Lamotrigine 25 Mg Tablet 25 Mg PO BID Gilenya (Fingolimod Hcl) 0.5 Mg Capsule 0.5 Mg PO QODAY Ferrous Sulfate 325 Mg Tablet 325 Mg PO BID Escitalopram Oxalate 10 Mg Tablet 10 Mg PO DAILY Bisacodyl 10 Mg Supp.rect 10 Mg RC PRN DAILY PRN Cetirizine Hcl 10 Mg Tablet 10 Mg PO DAILY Calcium 600 + Vit D3 400 Tab (Calcium Carbonate/Vitamin D3) 1 Each Tablet 1 Tab PO BID Biofreeze (Menthol) 118 Ml Gel..ml. 1 Jaquan TP PRN QID PRN Bactroban (Mupirocin Calcium) 15 Gm Cream..g. 1 Gm TP BID Baclofen 20 Mg Tablet 20 Mg PO QID Abilify (Aripiprazole) 5 Mg Tablet 2.5 Mg PO DAILY Aleve Pm Caplet (Naproxen Na-Diphenhydramin HCl) 1 Each Tablet 1 Tab PO QHS Acyclovir 800 Mg Tablet 800 Mg PO 5XDAY 7 Days Tylenol (Acetaminophen) 325 Mg Tablet 650 Mg PO PRN Q4HRS PRN MDD 3000mg Tramadol Hcl (Tramadol HCl) 50 Mg Tablet 50 Mg PO PRN Q6HRS PRN Hydrocodone-Apap 5-325 (Hydrocodone Bit/Acetaminophen) 1 Each Tablet 1 Tab PO PRN Q6HRS PRN Denta 5000 Plus (Sodium Fluoride) 51 Gm Cream..g. 1 Jaquan DT QHS Cranberry Plus Vitamin C Sftgl (Cranberry Conc/Ascorbic Acid) 1 Each Capsule 1 Cap PO DAILY Diagnosis: Problems: (1) Behavioral disorder (2) Bipolar 1 disorder, mixed, moderate (3) Anxiety disorder (4) Impulse control disorder KERRY MAYORGA MD Feb 16, 2017 19:32
[2017-02-16] MEDS: SODIUM FLUORIDE DT SCH (19:33)
[2017-02-16] MEDS: [UNRECOGNIZED DRUG - OTHER] DT SCH (19:33)
--- NOTE | 2017-02-17 01:48 | PN ---
DATE: 02/15/2017 SUBJECTIVE: This is a late entry 02/15/2017 covers elements not covered in my initial note. The patient was seen individually evening of 02/15/2017. She has been less manic and less labile in her mood. More appropriate. She did slide herself to the floor one time, but was fully aware of what she was doing as staff processed this with her. No injury noted. REVIEW OF SYSTEMS: Ambulation impaired in wheelchair. No CV, , pulmonary, or eye system symptoms on review. MENTAL STATUS EXAM: Oriented to her situation. Speech is coherent, abstraction fair, computation impaired, and language function intact. Mood and affect are less labile. LABORATORY DATA: Reviewed. IMPRESSION: Unchanged from initial note. PLAN: Continue current psychotropics including Risperdal, Trileptal, trazodone, Ativan, and Zyprexa ___ p.r.n. Reviewed drug interactions and risk/benefit ratio favors no further change. KERRY MAYORGA MD DR: INGRIS/buzz JOB#: [id number] / [id number]
--- NOTE | 2017-02-17 01:48 | PN ---
DATE: 02/16/2017 PSYCHIATRIC PROGRESS NOTE SUBJECTIVE: The patient was seen on rounds the evening of 02/16/2017. Discussed with nursing staff, reviewed the chart. The patient was also staffed at a treatment team meeting with the entire team morning of 02/16/2017. At the treatment team meeting reviewed the patient's history, current functioning. She has been constipated, received milk of mag, mood lability is much better, complains of some nausea, attended groups. REVIEW OF SYSTEMS: Ambulation impaired in a wheelchair. No CV, , pulmonary, eye system symptoms on review. MENTAL STATUS EXAM: Oriented to herself and situation. Speech is coherent, less pressured. Abstraction fair, computation impaired, language function intact, attention span short. Mood and affect, lability is improved. LABORATORY DATA: Reviewed. IMPRESSION: Unchanged from initial note. PLAN: Continue current psychotropics mentioned in my initial note. Adjust further as clinically indicated. MAN Destin MAYORGA MD DR: INGRIS/buzz JOB#: [id number] / [id number]
[2017-02-17 06:25] VITALS: BP 120/90
[2017-02-17] MEDS: LEVOTHYROXINE 50 MCG TABLET PO SCH (06:25)
[2017-02-17] MEDS: OXYBUTYNIN CHLORIDE 5 MG TABLET PO SCH ×2 (07:56→19:27)
[2017-02-17] MEDS: CETIRIZINE HCL 10 MG TABLET PO SCH (07:56)
[2017-02-17] MEDS: LISINOPRIL 5 MG TABLET. PO SCH (07:56)
[2017-02-17] MEDS: FUROSEMIDE 20 MG TABLET PO SCH (07:56)
[2017-02-17] MEDS: tiZANidine 4 MG TABLET. PO SCH ×4 (07:57→19:27)
[2017-02-17] MEDS: BACLOFEN 20 MG TABLET PO SCH ×4 (07:57→19:27)
[2017-02-17] MEDS: MAGNESIUM OXIDE 400 MG TABLET PO SCH (07:57)
[2017-02-17] MEDS: SENNOSIDES/DOCUSATE 8.6/50MG TABLET. PO SCH ×2 (07:57→19:27)
[2017-02-17] MEDS: CALCIUM CARB/VIT D3 500/200 TABLET PO SCH ×2 (07:57→16:01)
[2017-02-17] MEDS: CHOLECALCIFEROL (VITAMIN D3) 1,000 UNIT TABLET PO SCH (07:57)
[2017-02-17] MEDS: FERROUS SULFATE 325 MG TABLET PO SCH ×2 (07:57→15:58)
[2017-02-17] MEDS: NICOTINE 14MG PATCH. TD SCH (07:58)
[2017-02-17] MEDS: POTASSIUM CHLORIDE 20 MEQ TABLET.ER. PO SCH (07:58)
[2017-02-17] MEDS: POLYETHYLENE GLYCOL 3350 17 GM PACKET. PO SCH (07:59)
[2017-02-17 15:38] VITALS: BP 102/64
[2017-02-17] MEDS: risperiDONE 0.5 MG TABLET. PO SCH (19:27)
[2017-02-17] MEDS: NAPROXEN 250 MG TABLET PO SCH (19:27)
[2017-02-17] MEDS: traZODone 100 MG TABLET. PO SCH (19:27)
[2017-02-17] MEDS: [UNRECOGNIZED DRUG - OTHER] DT SCH (19:28)
[2017-02-17] MEDS: SODIUM FLUORIDE DT SCH (19:28)
--- NOTE | 2017-02-17 20:29 | PDOC ---
Exam Mustapha Demential Exam: Mustapha Note: Please also refer to the separate dictated note~for this date of service dictated separately.~Patient seen individually. Discussed the patient with Nursing staff reviewed the chart.~Reviewed interim history and current functioning. Reviewed vital signs,~Labs/ Radiology~and current medications noted below. Continue current treatment with the changes noted in the dictated addendum note Assessment: Vital Signs: Vital Signs Date Time Temp Pulse Resp B/P (MAP) Pulse Ox O2 Delivery O2 Flow Rate FiO2 02/17/17 15:38 97.6 102 20 102/64 (77) 99 02/15/17 13:40 Room Air I&O Intake and Output 02/18/17 07:00 Intake Total 1180 ml Balance 1180 ml Intake Oral 1180 ml # Bowel Movements 1 Current Medications: Meds: Current Medications Al Hydroxide/Mg Hydroxide (Mylanta Plus Xs) 15 ml PRN AFTMEALHC PRN PO DYSPEPSIA; Start 02/06/17 at 22:15 Magnesium Hydroxide (Milk Of Magnesia) 2,400 mg PRN QHS PRN PO CONSTIPATION Last administered on 02/13/17 17:09; Start 02/06/17 at 22:15 Nicotine (Nicoderm Cq 21mg) 1 patch DAILY TD Last administered on 02/11/17 07: 03; Start 02/07/17 at 09:00; Stop 02/11/17 at 09:43; Status DC Aripiprazole (Abilify) 2.5 mg DAILY PO Last administered on 02/08/17 08:06; Start 02/07/17 at 09:00; Stop 02/08/17 at 18:25; Status DC Lamotrigine (LaMICtal) 25 mg BID PO Last administered on 02/12/17 07:15; Start 02/06/17 at 23:00; Stop 02/12/17 at 10:44; Status DC Lorazepam (Ativan) 0.5 mg PRN Q2HR PRN PO ANXIETY / AGITATION Last administered on 02/09/17 02:01; Start 02/06/17 at 22:15 Olanzapine (ZyPREXA ZYDIS) 2.5 mg PRN Q2HR PRN PO ANXIETY / AGITATION; Start at 22:15 Olanzapine (ZyPREXA) 5 mg DAILY PO Last administered on 02/10/17 07:53; Start 02/07/17 at 09:00; Stop 02/10/17 at 18:47; Status DC Trazodone HCl (Desyrel) 50 mg PRN QHS PRN PO INSOMNIA; Start 02/06/17 at 22:15 ; Stop 02/07/17 at 18:20; Status DC Trazodone HCl (Desyrel) 50 mg QHS PO Last administered on 02/06/17 23:43; Start 02/06/17 at 23:00; Stop 02/07/17 at 18:20; Status DC Citalopram Hydrobromide (CeleXA) 20 mg DAILY PO Last administered on 02/10/17 07:54; Start 02/07/17 at 09:00; Stop 02/10/17 at 18:54; Status DC Acetaminophen (Tylenol) 650 mg PRN Q4HRS PRN PO PAIN / TEMP; Start 02/06/17 at 22:15 Baclofen (Lioresal) 20 mg QID PO Last administered on 02/17/17 19:27; Start at 23:00 Bisacodyl (Dulcolax Supp) 10 mg PRN DAILY PRN RC CONSTIPATION; Start 02/06/17 at 22:15 Cetirizine HCl (ZyrTEC) 10 mg DAILY PO Last administered on 02/17/17 07:56; Start 02/07/17 at 09:00 Vitamin D (Vitamin D3) 2,000 unit DAILY PO Last administered on 02/17/17 07:57 ; Start 02/07/17 at 09:00 Ferrous Sulfate (Feosol) 325 mg BIDWMEALS PO Last administered on 02/17/17 15: 58; Start 02/07/17 at 08:00 Furosemide (Lasix) 40 mg DAILY PO Last administered on 02/14/17 07:40; Start at 09:00; Stop 02/14/17 at 15:04; Status DC Acetaminophen/ Hydrocodone Bitart (Lortab 5/325) 1 tab PRN Q6HRS PRN PO Severe Pain Last administered on 02/14/17 05:55; Start 02/06/17 at 22:15 Levothyroxine Sodium (Synthroid) 50 mcg DAILY07 PO Last administered on 06:25; Start 02/07/17 at 07:00 Lisinopril (Prinivil) 5 mg DAILY PO Last administered on 02/17/17 07:56; Start 02/07/17 at 09:00 Polyethylene Glycol (miraLAX) 17 gm DAILY PO Last administered on 02/17/17 07: 59; Start 02/07/17 at 09:00 Potassium Chloride (Klor-Con) 20 meq DAILY PO Last administered on 02/14/17 07: 41; Start 02/07/17 at 09:00; Stop 02/14/17 at 08:44; Status DC Senna/Docusate Sodium (Senna Plus) 1 tab BID PO Last administered on 02/17/17 19:27; Start 02/06/17 at 23:00 Sodium Fluoride (Sf 5000 Plus) 1 jaquan QHS DT Last administered on 02/17/17 19:28 ; Start 02/07/17 at 21:00 Tizanidine HCl (Zanaflex) 4 mg QID PO Last administered on 02/17/17 19:27; Start 02/06/17 at 23:00 Tramadol HCl (Ultram) 50 mg PRN Q6HRS PRN PO PAIN; Start 02/06/17 at 22:15 Acyclovir (Zovirax) 800 mg 5XDAY PO Last administered on 02/09/17 19:50; Start 02/07/17 at 06:00; Stop 02/09/17 at 22:01; Status DC Calcium/Vitamin D (Oscal D 500mg/ 200uts) 1 tab BIDWMEALS PO Last administered on 02/17/17 16:01; Start 02/07/17 at 08:00 Non-Formulary Medication 1 cap DAILY PO ; Start 02/07/17 at 09:00; Status UNV Non-Formulary Medication 1 jaquan QHS TP ; Start 02/07/17 at 21:00; Status UNV Oxybutynin Chloride (Ditropan) 5 mg BID PO Last administered on 02/17/17 19:27 ; Start 02/07/17 at 09:00 Non-Formulary Medication 0.5 mg QODAY PO Last administered on 02/16/17 09:00; Start 02/08/17 at 09:00 Loperamide HCl (Imodium) 2 mg PRN QID PRN PO DIARRHEA; Start 02/06/17 at 22:30 Magnesium Oxide (Magnesium Oxide) 400 mg DAILY PO Last administered on 07:57; Start 02/07/17 at 09:00 Non-Formulary Medication 1 jaquan PRN QID PRN TP MUSCLE PAIN; Start 02/06/17 at 22 :15; Status UNV Mupirocin (Bactroban) 1 jaquan BID TP Last administered on 02/08/17 09:47; Start 02/07/17 at 09:00; Stop 02/08/17 at 15:33; Status DC Naproxen (Naprosyn) 250 mg HS PO Last administered on 02/17/17 19:27; Start at 23:00 Diphenhydramine HCl (Benadryl) 25 mg HS PO Last administered on 02/13/17 19:16 ; Start 02/06/17 at 23:00; Stop 02/14/17 at 15:59; Status DC Cyanocobalamin (Vitamin B-12) 1,000 mcg WEEKLY IM Last administered on 08:55; Start 02/08/17 at 09:00 Trazodone HCl (Desyrel) 100 mg QHS PO Last administered on 02/17/17 19:27; Start 02/07/17 at 21:00 Trazodone HCl (Desyrel) 100 mg PRN QHS PRN PO INSOMNIA Last administered on 01:03; Start 02/07/17 at 18:30 Oxcarbazepine (Trileptal) 300 mg TID PO Last administered on 02/10/17 12:57; Start 02/08/17 at 21:00; Stop 02/10/17 at 18:47; Status DC Olanzapine (ZyPREXA) 5 mg HS PO Last administered on 02/11/17 19:36; Start 02/11 at 21:00; Stop 02/12/17 at 10:44; Status DC Oxcarbazepine (Trileptal) 300 mg BID PO Last administered on 02/15/17 08:48; Start 02/10/17 at 21:00; Stop 02/15/17 at 18:31; Status DC Nicotine (Nicoderm Cq 14mg) 1 patch DAILY TD Last administered on 02/17/17 07: 58; Start 02/12/17 at 09:00; Stop 02/25/17 at 09:01 Nicotine (Nicoderm Cq 7mg) 1 patch DAILY TD ; Start 02/26/17 at 09:00; Stop at 09:01 Ondansetron HCl (Zofran Odt) 4 mg PRN Q8HRS PRN PO NAUSEA/VOMITING Last administered on 02/16/17 05:58; Start 02/11/17 at 12:30 Risperidone (RisperDAL) 0.5 mg HS PO Last administered on 02/17/17 19:27; Start 02/12/17 at 21:00 Potassium Chloride (Klor-Con) 40 meq DAILY PO Last administered on 02/17/17 07: 58; Start 02/15/17 at 09:00 Potassium Chloride (Klor-Con) 20 meq 1X ONCE PO Last administered on 02/14/17 10:11; Start 02/14/17 at 09:30; Stop 02/14/17 at 09:31; Status DC Furosemide (Lasix) 20 mg DAILY PO Last administered on 02/17/17 07:56; Start at 09:00 Oxcarbazepine (Trileptal) 300 mg TID PO Last administered on 02/17/17 19:27; Start 02/15/17 at 21:00 Temazepam (Restoril) 15 mg PRN QHS PRN PO INSOMNIA; Start 02/16/17 at 10:45 Active Scripts Active Reported Vitamin D3 (Cholecalciferol (Vitamin D3)) 1,000 Unit Tablet 2,000 Unit PO DAILY Vicks Vaporub Ointment (Eucalyptus Oil/Menthol/Camphor) 50 Gm Oint...g. 1 Jaquan TP QHS Trazodone Hcl 50 Mg Tablet 50 Mg PO PRN QHS PRN Trazodone Hcl 50 Mg Tablet 50 Mg PO QHS Toviaz (Fesoterodine Fumarate) 4 Mg Tab.er.24h 4 Mg PO DAILY Tizanidine Hcl (Tizanidine HCl) 4 Mg Tablet 4 Mg PO QID Senna S Tablet (Sennosides/Docusate Sodium) 1 Each Tablet 1 Tab PO BID Klor-Con M20 (Potassium Chloride) 20 Meq Tab.er.prt 20 Meq PO DAILY Zyprexa (Olanzapine) 5 Mg Tablet 5 Mg PO DAILY Zyprexa Zydis (Olanzapine) 5 Mg Tab.rapdis 2.5 Mg PO PRN Q2HR PRN MDD 15mg Miralax (Polyethylene Glycol 3350) 119 Gm Powder 17 Gm PO DAILY Magnesium Oxide 500 Mg Tablet 500 Mg PO DAILY Lorazepam 0.5 Mg Tablet 0.5 Mg PO PRN Q2HR PRN MDD 2mg Loperamide (Loperamide Hcl) 2 Mg Tablet 2 Mg PO PRN QID PRN Lisinopril 5 Mg Tablet 5 Mg PO DAILY Levothyroxine Sodium 50 Mcg Tablet 50 Mcg PO DAILY07 Lasix (Furosemide) 40 Mg Tablet 40 Mg PO DAILY Lamotrigine 25 Mg Tablet 25 Mg PO BID Gilenya (Fingolimod Hcl) 0.5 Mg Capsule 0.5 Mg PO QODAY Ferrous Sulfate 325 Mg Tablet 325 Mg PO BID Escitalopram Oxalate 10 Mg Tablet 10 Mg PO DAILY Bisacodyl 10 Mg Supp.rect 10 Mg RC PRN DAILY PRN Cetirizine Hcl 10 Mg Tablet 10 Mg PO DAILY Calcium 600 + Vit D3 400 Tab (Calcium Carbonate/Vitamin D3) 1 Each Tablet 1 Tab PO BID Biofreeze (Menthol) 118 Ml Gel..ml. 1 Jaquan TP PRN QID PRN Bactroban (Mupirocin Calcium) 15 Gm Cream..g. 1 Gm TP BID Baclofen 20 Mg Tablet 20 Mg PO QID Abilify (Aripiprazole) 5 Mg Tablet 2.5 Mg PO DAILY Aleve Pm Caplet (Naproxen Na-Diphenhydramin HCl) 1 Each Tablet 1 Tab PO QHS Acyclovir 800 Mg Tablet 800 Mg PO 5XDAY 7 Days Tylenol (Acetaminophen) 325 Mg Tablet 650 Mg PO PRN Q4HRS PRN MDD 3000mg Tramadol Hcl (Tramadol HCl) 50 Mg Tablet 50 Mg PO PRN Q6HRS PRN Hydrocodone-Apap 5-325 (Hydrocodone Bit/Acetaminophen) 1 Each Tablet 1 Tab PO PRN Q6HRS PRN Denta 5000 Plus (Sodium Fluoride) 51 Gm Cream..g. 1 Jaquan DT QHS Cranberry Plus Vitamin C Sftgl (Cranberry Conc/Ascorbic Acid) 1 Each Capsule 1 Cap PO DAILY Diagnosis: Problems: (1) Behavioral disorder (2) Bipolar 1 disorder, mixed, moderate (3) Anxiety disorder (4) Impulse control disorder KERRY MAYORGA MD Feb 17, 2017 20:29
[2017-02-18 05:49] VITALS: BP 106/64
[2017-02-18] MEDS: LEVOTHYROXINE 50 MCG TABLET PO SCH (06:20)
[2017-02-18] MEDS: FERROUS SULFATE 325 MG TABLET PO SCH ×2 (07:51→17:08)
[2017-02-18] MEDS: CALCIUM CARB/VIT D3 500/200 TABLET PO SCH ×2 (07:55→17:09)
[2017-02-18] MEDS: FUROSEMIDE 20 MG TABLET PO SCH (07:58)
[2017-02-18] MEDS: BACLOFEN 20 MG TABLET PO SCH ×4 (07:58→19:24)
[2017-02-18] MEDS: OXYBUTYNIN CHLORIDE 5 MG TABLET PO SCH ×2 (07:58→19:23)
[2017-02-18] MEDS: POTASSIUM CHLORIDE 20 MEQ TABLET.ER. PO SCH (07:58)
[2017-02-18] MEDS: POLYETHYLENE GLYCOL 3350 17 GM PACKET. PO SCH (07:59)
[2017-02-18] MEDS: MAGNESIUM OXIDE 400 MG TABLET PO SCH (07:59)
[2017-02-18] MEDS: SENNOSIDES/DOCUSATE 8.6/50MG TABLET. PO SCH ×2 (08:00→19:23)
[2017-02-18] MEDS: tiZANidine 4 MG TABLET. PO SCH ×4 (08:00→19:23)
[2017-02-18] MEDS: NICOTINE 14MG PATCH. TD SCH (08:01)
[2017-02-18] MEDS: CHOLECALCIFEROL (VITAMIN D3) 1,000 UNIT TABLET PO SCH (08:01)
[2017-02-18] MEDS: CETIRIZINE HCL 10 MG TABLET PO SCH (08:01)
[2017-02-18] MEDS: LISINOPRIL 5 MG TABLET. PO SCH (09:00)
[2017-02-18 17:16] VITALS: BP 116/77
[2017-02-18] MEDS: [UNRECOGNIZED DRUG - OTHER] DT SCH (19:23)
[2017-02-18] MEDS: SODIUM FLUORIDE DT SCH (19:23)
[2017-02-18] MEDS: NAPROXEN 250 MG TABLET PO SCH (19:24)
[2017-02-18] MEDS: risperiDONE 0.5 MG TABLET. PO SCH (19:24)
[2017-02-18] MEDS: traZODone 100 MG TABLET. PO SCH (19:24)
[2017-02-18] MEDS: TEMAZEPAM 15 MG CAPSULE PO PRN (21:15)
[2017-02-18] MEDS: traZODone 100 MG TABLET. PO PRN (21:15)
--- NOTE | 2017-02-18 21:22 | PN ---
DATE: 02/17/2017 PSYCHIATRIC PROGRESS NOTE This late entry 02/17/2017, covers elements not covered in my initial note of 02/17/2017. SUBJECTIVE: The patient was seen individually evening of 02/17/2017. Per nursing report, the patient slept about 6 hours previous evening, has done better during the day. On 02/17/2017, less psychotic, less grandiose, less gestures with her hands and arms as if she is flying all of which is an improvement. REVIEW OF SYSTEMS: Ambulation impaired, in wheelchair. No CV, , pulmonary, eye system symptoms on review. She is pleasant and cooperative. MENTAL STATUS EXAM: Oriented to herself and situation. Speech coherent, has some latency, abstraction fair, computation impaired, language function intact, attention span short, mood and affect improved, ability less psychotic. No suicidal or homicidal ideation. IMPRESSION: Bipolar one disorder, mixed with psychotic features, in partial remission; mild cognitive impairment; anxiety disorder, unspecified; impulse control disorder, unspecified. PLAN: Continue psychotropics mentioned in my initial note. Reviewed drug interactions risk/benefit ratio, favors no further change at this time. MAN Destin MAYORGA MD DR: INGRIS/buzz JOB#: [id number] / [id number]
--- NOTE | 2017-02-18 23:01 | PDOC ---
Exam Mustapha Demential Exam: Mustapha Note: Please also refer to the separate dictated note~for this date of service dictated separately.~Patient seen individually. Discussed the patient with Nursing staff reviewed the chart.~Reviewed interim history and current functioning. Reviewed vital signs,~Labs/ Radiology~and current medications noted below. Continue current treatment with the changes noted in the dictated addendum note Assessment: Vital Signs: Vital Signs Date Time Temp Pulse Resp B/P (MAP) Pulse Ox O2 Delivery O2 Flow Rate FiO2 02/18/17 17:16 98.3 105 16 116/77 (90) 97 02/18/17 05:49 Room Air I&O Intake and Output 02/19/17 07:00 Intake Total 1420 ml Balance 1420 ml Intake Oral 1420 ml Current Medications: Meds: Current Medications Al Hydroxide/Mg Hydroxide (Mylanta Plus Xs) 15 ml PRN AFTMEALHC PRN PO DYSPEPSIA; Start 02/06/17 at 22:15 Magnesium Hydroxide (Milk Of Magnesia) 2,400 mg PRN QHS PRN PO CONSTIPATION Last administered on 02/13/17 17:09; Start 02/06/17 at 22:15 Nicotine (Nicoderm Cq 21mg) 1 patch DAILY TD Last administered on 02/11/17 07: 03; Start 02/07/17 at 09:00; Stop 02/11/17 at 09:43; Status DC Aripiprazole (Abilify) 2.5 mg DAILY PO Last administered on 02/08/17 08:06; Start 02/07/17 at 09:00; Stop 02/08/17 at 18:25; Status DC Lamotrigine (LaMICtal) 25 mg BID PO Last administered on 02/12/17 07:15; Start 02/06/17 at 23:00; Stop 02/12/17 at 10:44; Status DC Lorazepam (Ativan) 0.5 mg PRN Q2HR PRN PO ANXIETY / AGITATION Last administered on 02/09/17 02:01; Start 02/06/17 at 22:15 Olanzapine (ZyPREXA ZYDIS) 2.5 mg PRN Q2HR PRN PO ANXIETY / AGITATION; Start at 22:15 Olanzapine (ZyPREXA) 5 mg DAILY PO Last administered on 02/10/17 07:53; Start 02/07/17 at 09:00; Stop 02/10/17 at 18:47; Status DC Trazodone HCl (Desyrel) 50 mg PRN QHS PRN PO INSOMNIA; Start 02/06/17 at 22:15 ; Stop 02/07/17 at 18:20; Status DC Trazodone HCl (Desyrel) 50 mg QHS PO Last administered on 02/06/17 23:43; Start 02/06/17 at 23:00; Stop 02/07/17 at 18:20; Status DC Citalopram Hydrobromide (CeleXA) 20 mg DAILY PO Last administered on 02/10/17 07:54; Start 02/07/17 at 09:00; Stop 02/10/17 at 18:54; Status DC Acetaminophen (Tylenol) 650 mg PRN Q4HRS PRN PO PAIN / TEMP; Start 02/06/17 at 22:15 Baclofen (Lioresal) 20 mg QID PO Last administered on 02/18/17 19:24; Start at 23:00 Bisacodyl (Dulcolax Supp) 10 mg PRN DAILY PRN RC CONSTIPATION; Start 02/06/17 at 22:15 Cetirizine HCl (ZyrTEC) 10 mg DAILY PO Last administered on 02/18/17 08:01; Start 02/07/17 at 09:00 Vitamin D (Vitamin D3) 2,000 unit DAILY PO Last administered on 02/18/17 08:01 ; Start 02/07/17 at 09:00 Ferrous Sulfate (Feosol) 325 mg BIDWMEALS PO Last administered on 02/18/17 17: 08; Start 02/07/17 at 08:00 Furosemide (Lasix) 40 mg DAILY PO Last administered on 02/14/17 07:40; Start at 09:00; Stop 02/14/17 at 15:04; Status DC Acetaminophen/ Hydrocodone Bitart (Lortab 5/325) 1 tab PRN Q6HRS PRN PO Severe Pain Last administered on 02/14/17 05:55; Start 02/06/17 at 22:15 Levothyroxine Sodium (Synthroid) 50 mcg DAILY07 PO Last administered on 06:20; Start 02/07/17 at 07:00 Lisinopril (Prinivil) 5 mg DAILY PO Last administered on 02/17/17 07:56; Start 02/07/17 at 09:00 Polyethylene Glycol (miraLAX) 17 gm DAILY PO Last administered on 02/18/17 07: 59; Start 02/07/17 at 09:00 Potassium Chloride (Klor-Con) 20 meq DAILY PO Last administered on 02/14/17 07: 41; Start 02/07/17 at 09:00; Stop 02/14/17 at 08:44; Status DC Senna/Docusate Sodium (Senna Plus) 1 tab BID PO Last administered on 02/18/17 19:23; Start 02/06/17 at 23:00 Sodium Fluoride (Sf 5000 Plus) 1 jaquan QHS DT Last administered on 02/18/17 19:23 ; Start 02/07/17 at 21:00 Tizanidine HCl (Zanaflex) 4 mg QID PO Last administered on 02/18/17 19:23; Start 02/06/17 at 23:00 Tramadol HCl (Ultram) 50 mg PRN Q6HRS PRN PO PAIN; Start 02/06/17 at 22:15 Acyclovir (Zovirax) 800 mg 5XDAY PO Last administered on 02/09/17 19:50; Start 02/07/17 at 06:00; Stop 02/09/17 at 22:01; Status DC Calcium/Vitamin D (Oscal D 500mg/ 200uts) 1 tab BIDWMEALS PO Last administered on 02/18/17 17:09; Start 02/07/17 at 08:00 Non-Formulary Medication 1 cap DAILY PO ; Start 02/07/17 at 09:00; Status UNV Non-Formulary Medication 1 jaquan QHS TP ; Start 02/07/17 at 21:00; Status UNV Oxybutynin Chloride (Ditropan) 5 mg BID PO Last administered on 02/18/17 19:23 ; Start 02/07/17 at 09:00 Non-Formulary Medication 0.5 mg QODAY PO Last administered on 02/18/17 07:57; Start 02/08/17 at 09:00 Loperamide HCl (Imodium) 2 mg PRN QID PRN PO DIARRHEA; Start 02/06/17 at 22:30 Magnesium Oxide (Magnesium Oxide) 400 mg DAILY PO Last administered on 07:59; Start 02/07/17 at 09:00 Non-Formulary Medication 1 jaquan PRN QID PRN TP MUSCLE PAIN; Start 02/06/17 at 22 :15; Status UNV Mupirocin (Bactroban) 1 jaquan BID TP Last administered on 02/08/17 09:47; Start 02/07/17 at 09:00; Stop 02/08/17 at 15:33; Status DC Naproxen (Naprosyn) 250 mg HS PO Last administered on 02/18/17 19:24; Start at 23:00 Diphenhydramine HCl (Benadryl) 25 mg HS PO Last administered on 02/13/17 19:16 ; Start 02/06/17 at 23:00; Stop 02/14/17 at 15:59; Status DC Cyanocobalamin (Vitamin B-12) 1,000 mcg WEEKLY IM Last administered on 08:55; Start 02/08/17 at 09:00 Trazodone HCl (Desyrel) 100 mg QHS PO Last administered on 02/18/17 19:24; Start 02/07/17 at 21:00 Trazodone HCl (Desyrel) 100 mg PRN QHS PRN PO INSOMNIA Last administered on 02/18 21:15; Start 02/07/17 at 18:30 Oxcarbazepine (Trileptal) 300 mg TID PO Last administered on 02/10/17 12:57; Start 02/08/17 at 21:00; Stop 02/10/17 at 18:47; Status DC Olanzapine (ZyPREXA) 5 mg HS PO Last administered on 02/11/17 19:36; Start 02/11 at 21:00; Stop 02/12/17 at 10:44; Status DC Oxcarbazepine (Trileptal) 300 mg BID PO Last administered on 02/15/17 08:48; Start 02/10/17 at 21:00; Stop 02/15/17 at 18:31; Status DC Nicotine (Nicoderm Cq 14mg) 1 patch DAILY TD Last administered on 02/18/17 08: 01; Start 02/12/17 at 09:00; Stop 02/25/17 at 09:01 Nicotine (Nicoderm Cq 7mg) 1 patch DAILY TD ; Start 02/26/17 at 09:00; Stop at 09:01 Ondansetron HCl (Zofran Odt) 4 mg PRN Q8HRS PRN PO NAUSEA/VOMITING Last administered on 02/16/17 05:58; Start 02/11/17 at 12:30 Risperidone (RisperDAL) 0.5 mg HS PO Last administered on 02/18/17 19:24; Start 02/12/17 at 21:00 Potassium Chloride (Klor-Con) 40 meq DAILY PO Last administered on 02/18/17 07: 58; Start 02/15/17 at 09:00 Potassium Chloride (Klor-Con) 20 meq 1X ONCE PO Last administered on 02/14/17 10:11; Start 02/14/17 at 09:30; Stop 02/14/17 at 09:31; Status DC Furosemide (Lasix) 20 mg DAILY PO Last administered on 02/18/17 07:58; Start at 09:00 Oxcarbazepine (Trileptal) 300 mg TID PO Last administered on 02/18/17 19:24; Start 02/15/17 at 21:00 Temazepam (Restoril) 15 mg PRN QHS PRN PO INSOMNIA Last administered on 21:15; Start 02/16/17 at 10:45 Active Scripts Active Reported Vitamin D3 (Cholecalciferol (Vitamin D3)) 1,000 Unit Tablet 2,000 Unit PO DAILY Vicks Vaporub Ointment (Eucalyptus Oil/Menthol/Camphor) 50 Gm Oint...g. 1 Jaquan TP QHS Trazodone Hcl 50 Mg Tablet 50 Mg PO PRN QHS PRN Trazodone Hcl 50 Mg Tablet 50 Mg PO QHS Toviaz (Fesoterodine Fumarate) 4 Mg Tab.er.24h 4 Mg PO DAILY Tizanidine Hcl (Tizanidine HCl) 4 Mg Tablet 4 Mg PO QID Senna S Tablet (Sennosides/Docusate Sodium) 1 Each Tablet 1 Tab PO BID Klor-Con M20 (Potassium Chloride) 20 Meq Tab.er.prt 20 Meq PO DAILY Zyprexa (Olanzapine) 5 Mg Tablet 5 Mg PO DAILY Zyprexa Zydis (Olanzapine) 5 Mg Tab.rapdis 2.5 Mg PO PRN Q2HR PRN MDD 15mg Miralax (Polyethylene Glycol 3350) 119 Gm Powder 17 Gm PO DAILY Magnesium Oxide 500 Mg Tablet 500 Mg PO DAILY Lorazepam 0.5 Mg Tablet 0.5 Mg PO PRN Q2HR PRN MDD 2mg Loperamide (Loperamide Hcl) 2 Mg Tablet 2 Mg PO PRN QID PRN Lisinopril 5 Mg Tablet 5 Mg PO DAILY Levothyroxine Sodium 50 Mcg Tablet 50 Mcg PO DAILY07 Lasix (Furosemide) 40 Mg Tablet 40 Mg PO DAILY Lamotrigine 25 Mg Tablet 25 Mg PO BID Gilenya (Fingolimod Hcl) 0.5 Mg Capsule 0.5 Mg PO QODAY Ferrous Sulfate 325 Mg Tablet 325 Mg PO BID Escitalopram Oxalate 10 Mg Tablet 10 Mg PO DAILY Bisacodyl 10 Mg Supp.rect 10 Mg RC PRN DAILY PRN Cetirizine Hcl 10 Mg Tablet 10 Mg PO DAILY Calcium 600 + Vit D3 400 Tab (Calcium Carbonate/Vitamin D3) 1 Each Tablet 1 Tab PO BID Biofreeze (Menthol) 118 Ml Gel..ml. 1 Jaquan TP PRN QID PRN Bactroban (Mupirocin Calcium) 15 Gm Cream..g. 1 Gm TP BID Baclofen 20 Mg Tablet 20 Mg PO QID Abilify (Aripiprazole) 5 Mg Tablet 2.5 Mg PO DAILY Aleve Pm Caplet (Naproxen Na-Diphenhydramin HCl) 1 Each Tablet 1 Tab PO QHS Acyclovir 800 Mg Tablet 800 Mg PO 5XDAY 7 Days Tylenol (Acetaminophen) 325 Mg Tablet 650 Mg PO PRN Q4HRS PRN MDD 3000mg Tramadol Hcl (Tramadol HCl) 50 Mg Tablet 50 Mg PO PRN Q6HRS PRN Hydrocodone-Apap 5-325 (Hydrocodone Bit/Acetaminophen) 1 Each Tablet 1 Tab PO PRN Q6HRS PRN Denta 5000 Plus (Sodium Fluoride) 51 Gm Cream..g. 1 Jaquan DT QHS Cranberry Plus Vitamin C Sftgl (Cranberry Conc/Ascorbic Acid) 1 Each Capsule 1 Cap PO DAILY Diagnosis: Problems: (1) Multiple sclerosis (2) Behavioral disorder (3) Bipolar 1 disorder, mixed, moderate (4) Anxiety disorder (5) Impulse control disorder (6) Mild cognitive disorder KERRY MAYORGA MD Feb 18, 2017 23:01
[2017-02-19 06:00] VITALS: BP 119/78
[2017-02-19] MEDS: LEVOTHYROXINE 50 MCG TABLET PO SCH (06:11)
[2017-02-19] MEDS: FERROUS SULFATE 325 MG TABLET PO SCH ×2 (08:01→17:00)
[2017-02-19] MEDS: OXYBUTYNIN CHLORIDE 5 MG TABLET PO SCH ×2 (08:01→19:40)
[2017-02-19] MEDS: CALCIUM CARB/VIT D3 500/200 TABLET PO SCH ×2 (08:01→17:00)
[2017-02-19] MEDS: POTASSIUM CHLORIDE 20 MEQ TABLET.ER. PO SCH (08:02)
[2017-02-19] MEDS: BACLOFEN 20 MG TABLET PO SCH ×4 (08:03→19:40)
[2017-02-19] MEDS: FUROSEMIDE 20 MG TABLET PO SCH (08:03)
[2017-02-19] MEDS: POLYETHYLENE GLYCOL 3350 17 GM PACKET. PO SCH (08:03)
[2017-02-19] MEDS: MAGNESIUM OXIDE 400 MG TABLET PO SCH (08:03)
[2017-02-19] MEDS: SENNOSIDES/DOCUSATE 8.6/50MG TABLET. PO SCH ×2 (08:04→19:39)
[2017-02-19] MEDS: tiZANidine 4 MG TABLET. PO SCH ×4 (08:04→19:40)
[2017-02-19] MEDS: CHOLECALCIFEROL (VITAMIN D3) 1,000 UNIT TABLET PO SCH (08:04)
[2017-02-19] MEDS: NICOTINE 14MG PATCH. TD SCH (08:04)
[2017-02-19] MEDS: LISINOPRIL 5 MG TABLET. PO SCH (08:04)
[2017-02-19] MEDS: CETIRIZINE HCL 10 MG TABLET PO SCH (08:04)
--- NOTE | 2017-02-19 11:00 | PN ---
DATE: 02/18/2017 PSYCHIATRIC PROGRESS NOTE This late entry of 02/18/2017 covers elements not covered in my initial note of 02/18/2017. SUBJECTIVE: I met with the patient evening of 02/18/2017. Overall, per nursing report, the patient did well the previous evening and has done well during the day on 02/18/2017. She is not being grandiose, making hand gestures like she is in an airplane with associated sounds matching this. All of that seems to have improved significantly and subjectively, she states she is doing better with her mood. She was able to engage in a somewhat protracted conversation with me about her sister, Sofia's motor vehicle accident. She knew exactly where it happened, when it happened how her sister went to the [facility] and other details, some of which she certainly was not able to recall, during the time she was manic and psychotic a few days back. REVIEW OF SYSTEMS: Ambulation impaired, in a wheelchair. No CV, , pulmonary, eye system symptoms on review. MENTAL STATUS EXAM: Reasonably oriented. Speech coherent, not pressured. Abstraction fair, computation somewhat impaired, language function intact, attention span fair. Mood and affect is improved. LABORATORY DATA: Reviewed. IMPRESSION: Unchanged from initial note. PLAN: Continue current psychotropics. These are mentioned in my initial note. She slept for 3/4 hours the previous evening, but they stopped counting at 4 a.m. Possible transition back to [facility] 02/20/2017. MAN Destin MAYORGA MD DR: INGRIS/buzz JOB#: [id number] / [id number]
[2017-02-19 16:27] VITALS: BP 96/59
[2017-02-19] MEDS: traZODone 100 MG TABLET. PO SCH (19:39)
[2017-02-19] MEDS: NAPROXEN 250 MG TABLET PO SCH (19:40)
[2017-02-19] MEDS: risperiDONE 0.5 MG TABLET. PO SCH (19:40)
[2017-02-19] MEDS: [UNRECOGNIZED DRUG - OTHER] DT SCH (19:46)
[2017-02-19] MEDS: SODIUM FLUORIDE DT SCH (19:46)
--- NOTE | 2017-02-19 19:51 | PDOC ---
Exam Mustapha Demential Exam: Mustapha Note: Please also refer to the separate dictated note~for this date of service dictated separately.~Patient seen individually. Discussed the patient with Nursing staff reviewed the chart.~Reviewed interim history and current functioning. Reviewed vital signs,~Labs/ Radiology~and current medications noted below. Continue current treatment with the changes noted in the dictated addendum note Assessment: Vital Signs: Vital Signs Date Time Temp Pulse Resp B/P (MAP) Pulse Ox O2 Delivery O2 Flow Rate FiO2 02/19/17 16:27 98.1 85 18 96/59 (71) 97 02/19/17 06:00 Room Air I&O Intake and Output 02/20/17 07:00 Intake Total 1080 ml Balance 1080 ml Intake Oral 1080 ml Current Medications: Meds: Current Medications Al Hydroxide/Mg Hydroxide (Mylanta Plus Xs) 15 ml PRN AFTMEALHC PRN PO DYSPEPSIA; Start 02/06/17 at 22:15 Magnesium Hydroxide (Milk Of Magnesia) 2,400 mg PRN QHS PRN PO CONSTIPATION Last administered on 02/13/17 17:09; Start 02/06/17 at 22:15 Nicotine (Nicoderm Cq 21mg) 1 patch DAILY TD Last administered on 02/11/17 07: 03; Start 02/07/17 at 09:00; Stop 02/11/17 at 09:43; Status DC Aripiprazole (Abilify) 2.5 mg DAILY PO Last administered on 02/08/17 08:06; Start 02/07/17 at 09:00; Stop 02/08/17 at 18:25; Status DC Lamotrigine (LaMICtal) 25 mg BID PO Last administered on 02/12/17 07:15; Start 02/06/17 at 23:00; Stop 02/12/17 at 10:44; Status DC Lorazepam (Ativan) 0.5 mg PRN Q2HR PRN PO ANXIETY / AGITATION Last administered on 02/09/17 02:01; Start 02/06/17 at 22:15 Olanzapine (ZyPREXA ZYDIS) 2.5 mg PRN Q2HR PRN PO ANXIETY / AGITATION; Start at 22:15 Olanzapine (ZyPREXA) 5 mg DAILY PO Last administered on 02/10/17 07:53; Start 02/07/17 at 09:00; Stop 02/10/17 at 18:47; Status DC Trazodone HCl (Desyrel) 50 mg PRN QHS PRN PO INSOMNIA; Start 02/06/17 at 22:15 ; Stop 02/07/17 at 18:20; Status DC Trazodone HCl (Desyrel) 50 mg QHS PO Last administered on 02/06/17 23:43; Start 02/06/17 at 23:00; Stop 02/07/17 at 18:20; Status DC Citalopram Hydrobromide (CeleXA) 20 mg DAILY PO Last administered on 02/10/17 07:54; Start 02/07/17 at 09:00; Stop 02/10/17 at 18:54; Status DC Acetaminophen (Tylenol) 650 mg PRN Q4HRS PRN PO PAIN / TEMP; Start 02/06/17 at 22:15 Baclofen (Lioresal) 20 mg QID PO Last administered on 02/19/17 19:40; Start at 23:00 Bisacodyl (Dulcolax Supp) 10 mg PRN DAILY PRN RC CONSTIPATION; Start 02/06/17 at 22:15 Cetirizine HCl (ZyrTEC) 10 mg DAILY PO Last administered on 02/19/17 08:04; Start 02/07/17 at 09:00 Vitamin D (Vitamin D3) 2,000 unit DAILY PO Last administered on 02/19/17 08:04 ; Start 02/07/17 at 09:00 Ferrous Sulfate (Feosol) 325 mg BIDWMEALS PO Last administered on 02/19/17 17: 00; Start 02/07/17 at 08:00 Furosemide (Lasix) 40 mg DAILY PO Last administered on 02/14/17 07:40; Start at 09:00; Stop 02/14/17 at 15:04; Status DC Acetaminophen/ Hydrocodone Bitart (Lortab 5/325) 1 tab PRN Q6HRS PRN PO Severe Pain Last administered on 02/14/17 05:55; Start 02/06/17 at 22:15 Levothyroxine Sodium (Synthroid) 50 mcg DAILY07 PO Last administered on 06:11; Start 02/07/17 at 07:00 Lisinopril (Prinivil) 5 mg DAILY PO Last administered on 02/19/17 08:04; Start 02/07/17 at 09:00 Polyethylene Glycol (miraLAX) 17 gm DAILY PO Last administered on 02/19/17 08: 03; Start 02/07/17 at 09:00 Potassium Chloride (Klor-Con) 20 meq DAILY PO Last administered on 02/14/17 07: 41; Start 02/07/17 at 09:00; Stop 02/14/17 at 08:44; Status DC Senna/Docusate Sodium (Senna Plus) 1 tab BID PO Last administered on 02/19/17 19:39; Start 02/06/17 at 23:00 Sodium Fluoride (Sf 5000 Plus) 1 jaquan QHS DT Last administered on 02/19/17 19: 46; Start 02/07/17 at 21:00 Tizanidine HCl (Zanaflex) 4 mg QID PO Last administered on 02/19/17 19:40; Start 02/06/17 at 23:00 Tramadol HCl (Ultram) 50 mg PRN Q6HRS PRN PO PAIN; Start 02/06/17 at 22:15 Acyclovir (Zovirax) 800 mg 5XDAY PO Last administered on 02/09/17 19:50; Start 02/07/17 at 06:00; Stop 02/09/17 at 22:01; Status DC Calcium/Vitamin D (Oscal D 500mg/ 200uts) 1 tab BIDWMEALS PO Last administered on 02/19/17 17:00; Start 02/07/17 at 08:00 Non-Formulary Medication 1 cap DAILY PO ; Start 02/07/17 at 09:00; Status UNV Non-Formulary Medication 1 jaquan QHS TP ; Start 02/07/17 at 21:00; Status UNV Oxybutynin Chloride (Ditropan) 5 mg BID PO Last administered on 02/19/17 19:40 ; Start 02/07/17 at 09:00 Non-Formulary Medication 0.5 mg QODAY PO Last administered on 02/18/17 07:57; Start 02/08/17 at 09:00 Loperamide HCl (Imodium) 2 mg PRN QID PRN PO DIARRHEA; Start 02/06/17 at 22:30 Magnesium Oxide (Magnesium Oxide) 400 mg DAILY PO Last administered on 08:03; Start 02/07/17 at 09:00 Non-Formulary Medication 1 jaquan PRN QID PRN TP MUSCLE PAIN; Start 02/06/17 at 22 :15; Status UNV Mupirocin (Bactroban) 1 jaquan BID TP Last administered on 02/08/17 09:47; Start 02/07/17 at 09:00; Stop 02/08/17 at 15:33; Status DC Naproxen (Naprosyn) 250 mg HS PO Last administered on 02/19/17 19:40; Start at 23:00 Diphenhydramine HCl (Benadryl) 25 mg HS PO Last administered on 02/13/17 19:16 ; Start 02/06/17 at 23:00; Stop 02/14/17 at 15:59; Status DC Cyanocobalamin (Vitamin B-12) 1,000 mcg WEEKLY IM Last administered on 08:55; Start 02/08/17 at 09:00 Trazodone HCl (Desyrel) 100 mg QHS PO Last administered on 02/19/17 19:39; Start 02/07/17 at 21:00 Trazodone HCl (Desyrel) 100 mg PRN QHS PRN PO INSOMNIA Last administered on 02/18 21:15; Start 02/07/17 at 18:30 Oxcarbazepine (Trileptal) 300 mg TID PO Last administered on 02/10/17 12:57; Start 02/08/17 at 21:00; Stop 02/10/17 at 18:47; Status DC Olanzapine (ZyPREXA) 5 mg HS PO Last administered on 02/11/17 19:36; Start 02/11 at 21:00; Stop 02/12/17 at 10:44; Status DC Oxcarbazepine (Trileptal) 300 mg BID PO Last administered on 02/15/17 08:48; Start 02/10/17 at 21:00; Stop 02/15/17 at 18:31; Status DC Nicotine (Nicoderm Cq 14mg) 1 patch DAILY TD Last administered on 02/19/17 08: 04; Start 02/12/17 at 09:00; Stop 02/25/17 at 09:01 Nicotine (Nicoderm Cq 7mg) 1 patch DAILY TD ; Start 02/26/17 at 09:00; Stop at 09:01 Ondansetron HCl (Zofran Odt) 4 mg PRN Q8HRS PRN PO NAUSEA/VOMITING Last administered on 02/16/17 05:58; Start 02/11/17 at 12:30 Risperidone (RisperDAL) 0.5 mg HS PO Last administered on 02/19/17 19:40; Start 02/12/17 at 21:00 Potassium Chloride (Klor-Con) 40 meq DAILY PO Last administered on 02/19/17 08 :02; Start 02/15/17 at 09:00 Potassium Chloride (Klor-Con) 20 meq 1X ONCE PO Last administered on 02/14/17 10:11; Start 02/14/17 at 09:30; Stop 02/14/17 at 09:31; Status DC Furosemide (Lasix) 20 mg DAILY PO Last administered on 02/19/17 08:03; Start 02/15/17 at 09:00 Oxcarbazepine (Trileptal) 300 mg TID PO Last administered on 02/19/17 19:39; Start 02/15/17 at 21:00 Temazepam (Restoril) 15 mg PRN QHS PRN PO INSOMNIA Last administered on 21:15; Start 02/16/17 at 10:45 Active Scripts Active Reported Vitamin D3 (Cholecalciferol (Vitamin D3)) 1,000 Unit Tablet 2,000 Unit PO DAILY Vicks Vaporub Ointment (Eucalyptus Oil/Menthol/Camphor) 50 Gm Oint...g. 1 Jaquan TP QHS Trazodone Hcl 50 Mg Tablet 50 Mg PO PRN QHS PRN Trazodone Hcl 50 Mg Tablet 50 Mg PO QHS Toviaz (Fesoterodine Fumarate) 4 Mg Tab.er.24h 4 Mg PO DAILY Tizanidine Hcl (Tizanidine HCl) 4 Mg Tablet 4 Mg PO QID Senna S Tablet (Sennosides/Docusate Sodium) 1 Each Tablet 1 Tab PO BID Klor-Con M20 (Potassium Chloride) 20 Meq Tab.er.prt 20 Meq PO DAILY Zyprexa (Olanzapine) 5 Mg Tablet 5 Mg PO DAILY Zyprexa Zydis (Olanzapine) 5 Mg Tab.rapdis 2.5 Mg PO PRN Q2HR PRN MDD 15mg Miralax (Polyethylene Glycol 3350) 119 Gm Powder 17 Gm PO DAILY Magnesium Oxide 500 Mg Tablet 500 Mg PO DAILY Lorazepam 0.5 Mg Tablet 0.5 Mg PO PRN Q2HR PRN MDD 2mg Loperamide (Loperamide Hcl) 2 Mg Tablet 2 Mg PO PRN QID PRN Lisinopril 5 Mg Tablet 5 Mg PO DAILY Levothyroxine Sodium 50 Mcg Tablet 50 Mcg PO DAILY07 Lasix (Furosemide) 40 Mg Tablet 40 Mg PO DAILY Lamotrigine 25 Mg Tablet 25 Mg PO BID Gilenya (Fingolimod Hcl) 0.5 Mg Capsule 0.5 Mg PO QODAY Ferrous Sulfate 325 Mg Tablet 325 Mg PO BID Escitalopram Oxalate 10 Mg Tablet 10 Mg PO DAILY Bisacodyl 10 Mg Supp.rect 10 Mg RC PRN DAILY PRN Cetirizine Hcl 10 Mg Tablet 10 Mg PO DAILY Calcium 600 + Vit D3 400 Tab (Calcium Carbonate/Vitamin D3) 1 Each Tablet 1 Tab PO BID Biofreeze (Menthol) 118 Ml Gel..ml. 1 Jaquan TP PRN QID PRN Bactroban (Mupirocin Calcium) 15 Gm Cream..g. 1 Gm TP BID Baclofen 20 Mg Tablet 20 Mg PO QID Abilify (Aripiprazole) 5 Mg Tablet 2.5 Mg PO DAILY Aleve Pm Caplet (Naproxen Na-Diphenhydramin HCl) 1 Each Tablet 1 Tab PO QHS Acyclovir 800 Mg Tablet 800 Mg PO 5XDAY 7 Days Tylenol (Acetaminophen) 325 Mg Tablet 650 Mg PO PRN Q4HRS PRN MDD 3000mg Tramadol Hcl (Tramadol HCl) 50 Mg Tablet 50 Mg PO PRN Q6HRS PRN Hydrocodone-Apap 5-325 (Hydrocodone Bit/Acetaminophen) 1 Each Tablet 1 Tab PO PRN Q6HRS PRN Denta 5000 Plus (Sodium Fluoride) 51 Gm Cream..g. 1 Jaquan DT QHS Cranberry Plus Vitamin C Sftgl (Cranberry Conc/Ascorbic Acid) 1 Each Capsule 1 Cap PO DAILY Diagnosis: Problems: (1) Multiple sclerosis (2) Behavioral disorder (3) Bipolar 1 disorder, mixed, moderate (4) Anxiety disorder (5) Impulse control disorder KERRY MAYORGA MD Feb 19, 2017 19:51
[2017-02-19] MEDS: TEMAZEPAM 15 MG CAPSULE PO PRN (21:33)
[2017-02-19] MEDS: traZODone 100 MG TABLET. PO PRN (21:34)
[2017-02-19] MEDS ORDERED: ACYC800T PO (22:03)
[2017-02-19] MEDS ORDERED: CYAN10002 IM (23:25)
[2017-02-19] MEDS ORDERED: FURO20TA3 PO (23:27)
[2017-02-19] MEDS ORDERED: MAG30ORA2 PO (23:39)
[2017-02-19] MEDS ORDERED: MAGN400O7 PO (23:40)
[2017-02-19] MEDS ORDERED: MAGN400T3 PO (23:42)
[2017-02-19] MEDS ORDERED: NAPR250T6 PO (23:55)
[2017-02-19] MEDS ORDERED: NICO1PAT25 TD (23:57)
[2017-02-19] MEDS ORDERED: NICO1PAT27 TD (23:57)
[2017-02-20] MEDS ORDERED: OXCA300T PO (00:01)
[2017-02-20] MEDS ORDERED: TEMA15CA PO (00:03)
[2017-02-20] MEDS ORDERED: RISP0.5T24 PO (00:04)
[2017-02-20] MEDS ORDERED: TRAZ-90 PO ×2 (00:05)
[2017-02-20 06:03] VITALS: BP 106/67
[2017-02-20] MEDS: LEVOTHYROXINE 50 MCG TABLET PO SCH (06:05)
[2017-02-20] MEDS: CALCIUM CARB/VIT D3 500/200 TABLET PO SCH (08:01)
[2017-02-20] MEDS: FERROUS SULFATE 325 MG TABLET PO SCH (08:01)
[2017-02-20] MEDS: OXYBUTYNIN CHLORIDE 5 MG TABLET PO SCH (08:02)
[2017-02-20] MEDS: POLYETHYLENE GLYCOL 3350 17 GM PACKET. PO SCH (08:05)
[2017-02-20] MEDS: BACLOFEN 20 MG TABLET PO SCH (08:05)
[2017-02-20] MEDS: SENNOSIDES/DOCUSATE 8.6/50MG TABLET. PO SCH (08:05)
[2017-02-20] MEDS: MAGNESIUM OXIDE 400 MG TABLET PO SCH (08:05)
[2017-02-20] MEDS: FUROSEMIDE 20 MG TABLET PO SCH (08:05)
[2017-02-20] MEDS: POTASSIUM CHLORIDE 20 MEQ TABLET.ER. PO SCH (08:05)
[2017-02-20] MEDS: tiZANidine 4 MG TABLET. PO SCH (08:06)
[2017-02-20] MEDS: CETIRIZINE HCL 10 MG TABLET PO SCH (08:06)
[2017-02-20] MEDS: CHOLECALCIFEROL (VITAMIN D3) 1,000 UNIT TABLET PO SCH (08:06)
[2017-02-20] MEDS: NICOTINE 14MG PATCH. TD SCH (08:07)
[2017-02-20] MEDS: LISINOPRIL 5 MG TABLET. PO SCH (09:00)
[2017-02-20 09:34] LABS: BASO % 0 % (0-3); EOS # 0.1 x10^3/uL (0.0-0.7); EOS % 2 % (0-3); HEMATOCRIT 33.2 % (36.0-47.0); HEMOGLOBIN 11.4 g/dL (12.0-15.5); LYMPH # 0.4 x10^3/uL (1.0-4.8); LYMPH % 7 % (24-48); MEAN CORPUSCULAR HEMOGLOBIN 33 pg (25-35); MEAN CORPUSCULAR HGB CONC 35 g/dL (31-37); MEAN CORPUSCULAR VOLUME 96 fL (79-100); MONO # 0.4 x10^3/uL (0.0-1.1); MONO % 7 % (0-9); NEUT # 4.6 x10^3uL (1.8-7.7); NEUT % 84 % (31-73); PLATELET COUNT 158 x10^3/uL (140-400); RED BLOOD COUNT 3.46 x10^6/uL (3.50-5.40); RED CELL DISTRIBUTION WIDTH 14.5 % (11.5-14.5); WHITE BLOOD COUNT 5.5 x10^3/uL (4.0-11.0)
[2017-02-20 09:48] LABS: ALBUMIN 3.2 g/dL (3.4-5.0); ALBUMIN/GLOBULIN RATIO 1.1 (1.0-1.7); CALCIUM 8.6 mg/dL (8.5-10.1); CREATININE 0.9 mg/dL (0.6-1.0); GFR 67.1; POTASSIUM 4.5 mmol/L (3.5-5.1); TOTAL BILIRUBIN 0.2 mg/dL (0.2-1.0); TOTAL PROTEIN 6.2 g/dL (6.4-8.2)
--- NOTE | 2017-02-20 21:54 | PDOC ---
Exam Mustapha Demential Exam: Mustapha Note: Please also refer to the separate dictated note~for this date of service dictated separately.~Patient seen individually. Discussed the patient with Nursing staff reviewed the chart.~Reviewed interim history and current functioning. Reviewed vital signs,~Labs/ Radiology~and current medications noted below. Continue current treatment with the changes noted in the dictated addendum note Assessment: Vital Signs: Vital Signs Date Time Temp Pulse Resp B/P (MAP) Pulse Ox O2 Delivery O2 Flow Rate FiO2 02/20/17 06:03 97.8 97 18 106/67 (80) 96 02/19/17 06:00 Room Air I&O Intake and Output 02/21/17 07:00 Intake Total 360 ml Balance 360 ml Intake Oral 360 ml Labs: Laboratory Tests Test 02/20/17 09:26 White Blood Count 5.5 x10^3/uL (4.0-11.0) Red Blood Count 3.46 x10^6/uL (3.50-5.40) L Hemoglobin 11.4 g/dL (12.0-15.5) L Hematocrit 33.2 % (36.0-47.0) L Mean Corpuscular Volume 96 fL (79-100) Mean Corpuscular Hemoglobin 33 pg (25-35) Mean Corpuscular Hemoglobin Concent 35 g/dL (31-37) Red Cell Distribution Width 14.5 % (11.5-14.5) Platelet Count 158 x10^3/uL (140-400) Neutrophils (%) (Auto) 84 % (31-73) H Lymphocytes (%) (Auto) 7 % (24-48) L Monocytes (%) (Auto) 7 % (0-9) Eosinophils (%) (Auto) 2 % (0-3) Basophils (%) (Auto) 0 % (0-3) Neutrophils # (Auto) 4.6 x10^3uL (1.8-7.7) Lymphocytes # (Auto) 0.4 x10^3/uL (1.0-4.8) L Monocytes # (Auto) 0.4 x10^3/uL (0.0-1.1) Eosinophils # (Auto) 0.1 x10^3/uL (0.0-0.7) Basophils # (Auto) 0.0 x10^3/uL (0.0-0.2) Sodium Level 139 mmol/L (136-145) Potassium Level 4.5 mmol/L (3.5-5.1) Chloride Level 104 mmol/L (98-107) Carbon Dioxide Level 31 mmol/L (21-32) Anion Gap 4 (6-14) L Blood Urea Nitrogen 14 mg/dL (7-20) Creatinine 0.9 mg/dL (0.6-1.0) Estimated GFR (Cockcroft-Gault) 67.1 BUN/Creatinine Ratio 16 (6-20) Glucose Level 154 mg/dL (70-99) H Calcium Level 8.6 mg/dL (8.5-10.1) Total Bilirubin 0.2 mg/dL (0.2-1.0) Aspartate Amino Transferase (AST) 20 U/L (15-37) Alanine Aminotransferase (ALT) 41 U/L (14-59) Alkaline Phosphatase 88 U/L (46-116) Total Protein 6.2 g/dL (6.4-8.2) L Albumin 3.2 g/dL (3.4-5.0) L Albumin/Globulin Ratio 1.1 (1.0-1.7) Current Medications: Meds: Current Medications Al Hydroxide/Mg Hydroxide (Mylanta Plus Xs) 15 ml PRN AFTMEALHC PRN PO DYSPEPSIA; Start 02/06/17 at 22:15; Stop 02/20/17 at 10:36; Status DC Magnesium Hydroxide (Milk Of Magnesia) 2,400 mg PRN QHS PRN PO CONSTIPATION Last administered on 02/13/17 17:09; Start 02/06/17 at 22:15; Stop 02/20/17 at 10:36; Status DC Nicotine (Nicoderm Cq 21mg) 1 patch DAILY TD Last administered on 02/11/17 07: 03; Start 02/07/17 at 09:00; Stop 02/11/17 at 09:43; Status DC Aripiprazole (Abilify) 2.5 mg DAILY PO Last administered on 02/08/17 08:06; Start 02/07/17 at 09:00; Stop 02/08/17 at 18:25; Status DC Lamotrigine (LaMICtal) 25 mg BID PO Last administered on 02/12/17 07:15; Start 02/06/17 at 23:00; Stop 02/12/17 at 10:44; Status DC Lorazepam (Ativan) 0.5 mg PRN Q2HR PRN PO ANXIETY / AGITATION Last administered on 02/09/17 02:01; Start 02/06/17 at 22:15; Stop 02/20/17 at 10:36 ; Status DC Olanzapine (ZyPREXA ZYDIS) 2.5 mg PRN Q2HR PRN PO ANXIETY / AGITATION; Start at 22:15; Stop 02/20/17 at 10:36; Status DC Olanzapine (ZyPREXA) 5 mg DAILY PO Last administered on 02/10/17 07:53; Start 02/07/17 at 09:00; Stop 02/10/17 at 18:47; Status DC Trazodone HCl (Desyrel) 50 mg PRN QHS PRN PO INSOMNIA; Start 02/06/17 at 22:15 ; Stop 02/07/17 at 18:20; Status DC Trazodone HCl (Desyrel) 50 mg QHS PO Last administered on 02/06/17 23:43; Start 02/06/17 at 23:00; Stop 02/07/17 at 18:20; Status DC Citalopram Hydrobromide (CeleXA) 20 mg DAILY PO Last administered on 02/10/17 07:54; Start 02/07/17 at 09:00; Stop 02/10/17 at 18:54; Status DC Acetaminophen (Tylenol) 650 mg PRN Q4HRS PRN PO PAIN / TEMP; Start 02/06/17 at 22:15; Stop 02/20/17 at 10:36; Status DC Baclofen (Lioresal) 20 mg QID PO Last administered on 02/20/17 08:05; Start at 23:00; Stop 02/20/17 at 10:36; Status DC Bisacodyl (Dulcolax Supp) 10 mg PRN DAILY PRN RC CONSTIPATION; Start 02/06/17 at 22:15; Stop 02/20/17 at 10:36; Status DC Cetirizine HCl (ZyrTEC) 10 mg DAILY PO Last administered on 02/20/17 08:06; Start 02/07/17 at 09:00; Stop 02/20/17 at 10:36; Status DC Vitamin D (Vitamin D3) 2,000 unit DAILY PO Last administered on 02/20/17 08:06 ; Start 02/07/17 at 09:00; Stop 02/20/17 at 10:36; Status DC Ferrous Sulfate (Feosol) 325 mg BIDWMEALS PO Last administered on 02/20/17 08: 01; Start 02/07/17 at 08:00; Stop 02/20/17 at 10:36; Status DC Furosemide (Lasix) 40 mg DAILY PO Last administered on 02/14/17 07:40; Start at 09:00; Stop 02/14/17 at 15:04; Status DC Acetaminophen/ Hydrocodone Bitart (Lortab 5/325) 1 tab PRN Q6HRS PRN PO Severe Pain Last administered on 02/14/17 05:55; Start 02/06/17 at 22:15; Stop at 10:36; Status DC Levothyroxine Sodium (Synthroid) 50 mcg DAILY07 PO Last administered on 06:05; Start 02/07/17 at 07:00; Stop 02/20/17 at 10:36; Status DC Lisinopril (Prinivil) 5 mg DAILY PO Last administered on 02/19/17 08:04; Start 02/07/17 at 09:00; Stop 02/20/17 at 10:36; Status DC Polyethylene Glycol (miraLAX) 17 gm DAILY PO Last administered on 02/20/17 08: 05; Start 02/07/17 at 09:00; Stop 02/20/17 at 10:36; Status DC Potassium Chloride (Klor-Con) 20 meq DAILY PO Last administered on 02/14/17 07: 41; Start 02/07/17 at 09:00; Stop 02/14/17 at 08:44; Status DC Senna/Docusate Sodium (Senna Plus) 1 tab BID PO Last administered on 02/20/17 08:05; Start 02/06/17 at 23:00; Stop 02/20/17 at 10:36; Status DC Sodium Fluoride (Sf 5000 Plus) 1 jaquan QHS DT Last administered on 02/19/17 19: 46; Start 02/07/17 at 21:00; Stop 02/20/17 at 10:36; Status DC Tizanidine HCl (Zanaflex) 4 mg QID PO Last administered on 02/20/17 08:06; Start 02/06/17 at 23:00; Stop 02/20/17 at 10:36; Status DC Tramadol HCl (Ultram) 50 mg PRN Q6HRS PRN PO PAIN; Start 02/06/17 at 22:15; Stop 02/20/17 at 10:36; Status DC Acyclovir (Zovirax) 800 mg 5XDAY PO Last administered on 02/09/17 19:50; Start 02/07/17 at 06:00; Stop 02/09/17 at 22:01; Status DC Calcium/Vitamin D (Oscal D 500mg/ 200uts) 1 tab BIDWMEALS PO Last administered on 02/20/17 08:01; Start 02/07/17 at 08:00; Stop 02/20/17 at 10:36; Status DC Non-Formulary Medication 1 cap DAILY PO ; Start 02/07/17 at 09:00; Status UNV Non-Formulary Medication 1 jaquan QHS TP ; Start 02/07/17 at 21:00; Status UNV Oxybutynin Chloride (Ditropan) 5 mg BID PO Last administered on 02/20/17 08:02 ; Start 02/07/17 at 09:00; Stop 02/20/17 at 10:36; Status DC Non-Formulary Medication 0.5 mg QODAY PO Last administered on 02/20/17 08:04; Start 02/08/17 at 09:00; Stop 02/20/17 at 10:36; Status DC Loperamide HCl (Imodium) 2 mg PRN QID PRN PO DIARRHEA; Start 02/06/17 at 22:30 ; Stop 02/20/17 at 10:36; Status DC Magnesium Oxide (Magnesium Oxide) 400 mg DAILY PO Last administered on 08:05; Start 02/07/17 at 09:00; Stop 02/20/17 at 10:36; Status DC Non-Formulary Medication 1 jaquan PRN QID PRN TP MUSCLE PAIN; Start 02/06/17 at 22 :15; Status UNV Mupirocin (Bactroban) 1 jaquan BID TP Last administered on 02/08/17 09:47; Start 02/07/17 at 09:00; Stop 02/08/17 at 15:33; Status DC Naproxen (Naprosyn) 250 mg HS PO Last administered on 02/19/17 19:40; Start at 23:00; Stop 02/20/17 at 10:36; Status DC Diphenhydramine HCl (Benadryl) 25 mg HS PO Last administered on 02/13/17 19:16 ; Start 02/06/17 at 23:00; Stop 02/14/17 at 15:59; Status DC Cyanocobalamin (Vitamin B-12) 1,000 mcg WEEKLY IM Last administered on 08:55; Start 02/08/17 at 09:00; Stop 02/20/17 at 10:36; Status DC Trazodone HCl (Desyrel) 100 mg QHS PO Last administered on 02/19/17 19:39; Start 02/07/17 at 21:00; Stop 02/20/17 at 10:36; Status DC Trazodone HCl (Desyrel) 100 mg PRN QHS PRN PO INSOMNIA Last administered on 21:34; Start 02/07/17 at 18:30; Stop 02/20/17 at 10:36; Status DC Oxcarbazepine (Trileptal) 300 mg TID PO Last administered on 02/10/17 12:57; Start 02/08/17 at 21:00; Stop 02/10/17 at 18:47; Status DC Olanzapine (ZyPREXA) 5 mg HS PO Last administered on 02/11/17 19:36; Start 02/11 at 21:00; Stop 02/12/17 at 10:44; Status DC Oxcarbazepine (Trileptal) 300 mg BID PO Last administered on 02/15/17 08:48; Start 02/10/17 at 21:00; Stop 02/15/17 at 18:31; Status DC Nicotine (Nicoderm Cq 14mg) 1 patch DAILY TD Last administered on 02/20/17 08: 07; Start 02/12/17 at 09:00; Stop 02/20/17 at 10:36; Status DC Nicotine (Nicoderm Cq 7mg) 1 patch DAILY TD ; Start 02/26/17 at 09:00; Stop at 09:00; Status DC Ondansetron HCl (Zofran Odt) 4 mg PRN Q8HRS PRN PO NAUSEA/VOMITING Last administered on 02/16/17 05:58; Start 02/11/17 at 12:30; Stop 02/20/17 at 10:36; Status DC Risperidone (RisperDAL) 0.5 mg HS PO Last administered on 02/19/17 19:40; Start 02/12/17 at 21:00; Stop 02/20/17 at 10:36; Status DC Potassium Chloride (Klor-Con) 40 meq DAILY PO Last administered on 02/20/17 08 :05; Start 02/15/17 at 09:00; Stop 02/20/17 at 10:36; Status DC Potassium Chloride (Klor-Con) 20 meq 1X ONCE PO Last administered on 02/14/17 10:11; Start 02/14/17 at 09:30; Stop 02/14/17 at 09:31; Status DC Furosemide (Lasix) 20 mg DAILY PO Last administered on 02/20/17 08:05; Start 02/15/17 at 09:00; Stop 02/20/17 at 10:36; Status DC Oxcarbazepine (Trileptal) 300 mg TID PO Last administered on 02/20/17 08:05; Start 02/15/17 at 21:00; Stop 02/20/17 at 10:36; Status DC Temazepam (Restoril) 15 mg PRN QHS PRN PO INSOMNIA Last administered on 21:33; Start 02/16/17 at 10:45; Stop 02/20/17 at 10:36; Status DC Active Scripts Active Reported Trazodone Hcl 100 Mg Tablet 100 Mg PO PRN QHS PRN Trazodone Hcl 100 Mg Tablet 100 Mg PO QHS Risperdal (Risperidone) 0.5 Mg Tablet 0.5 Mg PO QHS Temazepam 15 Mg Capsule 15 Mg PO PRN QHS PRN Oxcarbazepine 300 Mg Tablet 300 Mg PO TID NICODERM CQ 7mg (Nicotine) 1 Each Patch.td24 1 Patch TD DAILY 14 Days NICODERM CQ 14mg (Nicotine) 1 Each Patch.td24 1 Patch TD DAILY 5 Days Naproxen 250 Mg Tablet 250 Mg PO QHS Magnesium Oxide 400 Mg Tablet 400 Mg PO DAILY Milk Of Magnesia (Magnesium Hydroxide) 400 Mg/5 Ml Oral.susp 2,400 Mg PO PRN QHS PRN Furosemide 20 Mg Tablet 20 Mg PO DAILY Cyanocobalamin Injection (Cyanocobalamin (Vitamin B-12)) 1,000 Mcg/1 Ml Vial 1, 000 Mcg IM WEEKLY Vitamin D3 (Cholecalciferol (Vitamin D3)) 1,000 Unit Tablet 2,000 Unit PO DAILY Vicks Vaporub Ointment (Eucalyptus Oil/Menthol/Camphor) 50 Gm Oint...g. 1 Jaquan TP QHS Toviaz (Fesoterodine Fumarate) 4 Mg Tab.er.24h 4 Mg PO DAILY Tizanidine Hcl (Tizanidine HCl) 4 Mg Tablet 4 Mg PO QID Senna S Tablet (Sennosides/Docusate Sodium) 1 Each Tablet 1 Tab PO BID Klor-Con M20 (Potassium Chloride) 20 Meq Tab.er.prt 40 Meq PO DAILY Zyprexa Zydis (Olanzapine) 5 Mg Tab.rapdis 2.5 Mg PO PRN Q2HR PRN MDD 10mg Miralax (Polyethylene Glycol 3350) 119 Gm Powder 17 Gm PO DAILY Loperamide (Loperamide Hcl) 2 Mg Tablet 2 Mg PO PRN QID PRN MDD 8mg Lisinopril 5 Mg Tablet 5 Mg PO DAILY Levothyroxine Sodium 50 Mcg Tablet 50 Mcg PO DAILY07 Gilenya (Fingolimod Hcl) 0.5 Mg Capsule 0.5 Mg PO QODAY Ferrous Sulfate 325 Mg Tablet 325 Mg PO BIDWMEALS Bisacodyl 10 Mg Supp.rect 10 Mg RC PRN DAILY PRN Cetirizine Hcl 10 Mg Tablet 10 Mg PO DAILY Calcium 600 + Vit D3 400 Tab (Calcium Carbonate/Vitamin D3) 1 Each Tablet 1 Tab PO BIDWMEALS Baclofen 20 Mg Tablet 20 Mg PO QID Acyclovir 800 Mg Tablet 800 Mg PO 5XDAY PRN 7 Days Tylenol (Acetaminophen) 325 Mg Tablet 650 Mg PO PRN Q4HRS PRN MDD 3000mg Hydrocodone-Apap 5-325 (Hydrocodone Bit/Acetaminophen) 1 Each Tablet 1 Tab PO PRN Q6HRS PRN MDD 4000mg of Acetaminophen Denta 5000 Plus (Sodium Fluoride) 51 Gm Cream..g. 1 Jaquan DT QHS Cranberry Plus Vitamin C Sftgl (Cranberry Conc/Ascorbic Acid) 1 Each Capsule 1 Cap PO DAILY Diagnosis: Problems: (1) Mild cognitive disorder (2) Impulse control disorder (3) Anxiety disorder (4) Bipolar 1 disorder, mixed, moderate KERRY MAYORGA MD Feb 20, 2017 21:54
--- NOTE | 2017-02-21 01:01 | PN ---
DATE: 02/19/2017 This late entry of 02/19/2017 covers elements not covered in my initial note of 02/19/2017. SUBJECTIVE: The patient was seen individually in the evening of 02/19/2017. She has been fairly appropriate in the unit, calm and cooperative, much less manic and grandiose. She is able to hold a fairly lengthy appropriate conversation with me individually evening of 02/19/2017 discussing about her perceptions of her stay at the shelter, her family, her sister, her mother. REVIEW OF SYSTEMS: Ambulation impaired, in a wheelchair. No CV, , pulmonary, eye system symptoms on review other than symptoms of MS and impaired balance and mobility. MENTAL STATUS EXAM: Reasonably oriented to place and situation. Speech is coherent, less pressured. Abstraction fair, computation impaired, language function intact. Attention span is improved. Mood and affect is improved. LABORATORY DATA: Reviewed. IMPRESSION: Unchanged from initial note. PLAN: Continue current psychotropics. Reviewed drug interactions. Risk/benefit ratio favors no further change at this time. KERRY MAYORGA MD DR: INGRIS/buzz JOB#: [id number] / [id number]
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
[2017-02-26] MEDS ORDERED: NICOTINE 7MG PATCH. TD SCH (09:00)
== END 2017-02-20 10:25 | disposition home or self-care (01) | DRG 885 ==
LOC: ER 18:34 → GEROPSY 21:21
PROVIDERS: ADMIT Psychiatry & Neurology Psychiatry; ATTEND Psychiatry & Neurology Psychiatry
DX: F31.64 Bipolar disorder, current episode mixed, severe, with psychotic features (principal); F03.91 Unspecified dementia, unspecified severity, with behavioral disturbance; I10 Essential (primary) hypertension; D50.9 Iron deficiency anemia, unspecified; F17.200 Nicotine dependence, unspecified, uncomplicated; E53.8 Deficiency of other specified B group vitamins; G35 Multiple sclerosis; F41.1 Generalized anxiety disorder; F63.9 Impulse disorder, unspecified; F44.4 Conversion disorder with motor symptom or deficit; F91.9 Conduct disorder, unspecified; K59.00 Constipation, unspecified; R32 Unspecified urinary incontinence; Y04.0XXA Assault by unarmed brawl or fight, initial encounter; E03.9 Hypothyroidism, unspecified; G47.00 Insomnia, unspecified; Z66 Do not resuscitate; Z85.3 Personal history of malignant neoplasm of breast; Z90.13 Acquired absence of bilateral breasts and nipples; Z88.8 Allergy status to other drugs, medicaments and biological substances; Z88.6 Allergy status to analgesic agent; Z91.040 Latex allergy status; Y92.89 Other specified places as the place of occurrence of the external cause; Y93.89 Activity, other specified; Y99.8 Other external cause status
CPT/HCPCS: 36415; 70450; 80053; 80061; 81001; 82306; 82607; 83036; 83540; 83550; 83735; 84436; 84443; 84480; 85025; 85027; 86592; 86593; 87086; 93005; 99406; 99407; J3420; Q0162; Q0163